=== PATIENT | female | born 1970 | race Caucasian/White ===

== ENCOUNTER 2020-04-04 00:31 | Outpatient (CLI) | payer BC, SELFPAY ==
[2020-04-04 20:45] LABS: SARS-CoV-2 RNA PCR Negative
== END 2020-04-04 00:32 | disposition home or self-care (01) ==
LOC: ANHCOVIDDT 00:31
PROVIDERS: PCP Family Medicine; Visit Provider Specialist
DX: Z01.812 Encounter for preprocedural laboratory examination (principal); Z11.59 Encounter for screening for other viral diseases
CPT/HCPCS: 87635; C9803; U0003

== ENCOUNTER 2020-04-07 05:24 | Day surgery (SDC) | payer BC, SELFPAY ==
[2020-04-06 15:39] VITALS: BMI 36.6
[2020-04-07] VITALS (8 sets, daily range): BP systolic 100–122; BP diastolic 47–83; PULSE 52–66; RESP 16–25; TEMP 35.8–36.3; O2SAT 95–98; BMI 38.9
[2020-04-07 11:40] LABS: Basophils Percent Auto 0.5 % (0.2-1.2); Eosinophils Absolute Auto 0.2 K/mm3 (0-0.3); Eosinophils Percent Auto 2.4 % (0-4.4); Hematocrit 42.9 % (37.0-47.0); Hemoglobin 14.1 g/dL (12.0-15.0); Immature Granulocyte Absolute 0.02 K/mm3 (0.00-0.031); Immature Granulocyte Percent A 0.2 % (0-0.5); Lymphocytes Absolute Auto 1.95 K/mm3 (0.9-3.2); Mean Corpuscular HGB Conc 32.9 g/dl (32-36); Mean Corpuscular Hemoglobin 31.7 pg (26-34); Mean Corpuscular Volume 96.4 fl (80-100); Mean Platelet Volume 9.8 fl (7.4-10.4); Monocytes Absolute Auto 0.6 K/mm3 (0.1-0.6); Monocytes Percent Auto 6.6 % (2.6-8.5); Neutrophils Absolute Auto 5.7 K/mm3 (1.3-6.7); Neutrophils Percent Auto 67.3 % (45.5-73.1); Platelet Count Result 240 k/mm3 (150-375); Red Blood Count 4.45 M/mm3 (4.2-5.4); White Blood Count 8.5 K/mm3 (4.5-10.0)
[2020-04-07 11:51] LABS: Anion Gap 5 mmol/L (8-16); Blood Urea Nitrogen 10 mg/dL (7-17); Calcium 9.3 mg/dL (8.4-10.2); Carbon Dioxide 31 mmol/L (22-30); Chloride 104 mmol/L (98-107); Estimated CRCL calculation 88 ml/min; Estimated Glomerular Filt Rate > 60; Glucose 92 mg/dL (65-105); INR 0.8; Prothrombin Time 12.1 Seconds (11.1-14.7); Sodium 140 mmol/L (137-145)
--- NOTE | 2020-04-07 13:04 | PM.IMHP ---
H&P: HPI History of Present Illness Date/Time: 04/07/20 13:04 Chief complaint: chest pain Narrative: Irina Layton is a 49 year old female 49 years old white woman, with history of smoking, history of dyslipidemia was seen because of recurrent episode of chest pain. She underwent stress test, showed inferior ischemia, with chest pain during stress test, she will be admitted to the hospital for elective cardiac catheterization for definitive diagnosis of coronary disease PMFSH Social History Social History Smoking packs per day: 1 Smoking cigarettes per day: 20.0 Years smoked: 30 Smoking pack-years: 30.00 Smoking status: Current every day smoker Tobacco type: cigarettes Substance use type: marijuana Last use: daily Living arrangements: with family Additional living arrangements comments: lives w boyfriend and daughter Spiritual care concerns: No Meds Home Medications and Allergies Home Medications Medication Instructions Recorded Confirmed Type Dialyvite Vitamin D 50,000 unit PO WEEKLY 04/06/20 04/06/20 History acetaminophen [Tylenol] 325 mg PO ONCE PRN 04/06/20 04/06/20 History albuterol 90 mcg INHALATION PRN 04/06/20 04/06/20 History alprazolam [Xanax] 1 mg PO QID MDD 4 04/06/20 04/06/20 History aspirin 325 mg PO DAILY 04/06/20 04/06/20 History atorvastatin 20 mg PO DAILY 04/06/20 04/06/20 History ibuprofen 800 mg PO TID PRN 04/06/20 04/06/20 History lisinopril-hydrochlorothiazide 1 tablet PO DAILY 04/06/20 04/06/20 History tusrficmwm-mshwjedmqfoza-cijr 1 tablet PO Q4H PRN 04/07/20 04/07/20 History [Fioricet] Allergies Allergy/AdvReac Type Severity Reaction Status Date / Time neomycin Allergy Unknown Hives Verified 04/07/20 12:07 Penicillins Allergy Unknown Itching Verified 04/07/20 12:07 vancomycin Allergy Unknown Hives Verified 04/07/20 12:07 Vital Signs Vital Signs - 24 hr 04/07/20 12:12 Temperature 36.3 C L Pulse Rate 62 Respiratory Rate 16 Blood Pressure 120/70 Pulse Oximetry 96 Exam Narrative: Exam Narrative: Awake alert oriented x3 not in acute distress, morbidly obese lady Neck is supple no obvious JVD, no carotid bruit Chest: Good air entry bilaterally, lungs are clear to auscultation and percussion bilaterally Cardiovascular: Regular rate and rhythm, 2/6 systolic murmur noted left sternal border Abdomen: Soft nontender bowel sounds positive Extremities: No edema has good pulses distally bilaterally H&P: Results Labs Labs: Short CBC 04/07/20 Range/Units 11:32 WBC 8.5 (4.5-10.0) K/mm3 Hgb 14.1 (12.0-15.0) g/dL Hct 42.9 (37.0-47.0) % Plt Count 240 (150-375) k/mm3 BMP 04/07/20 11:32 Sodium 140 Potassium 4.0 Chloride 104 Carbon Dioxide 31 H BUN 10 Creatinine 0.70 Glucose 92 Calcium 9.3 Assessment and Plan Assessment and plan (1) Atypical chest pain: Code(s): R07.89 - Other chest pain Status: Acute Assessment and Plan: will plan cardiac catheterization. The procedure was discussed with the patient, risks, benefits, and alternative diagnostic measure was explained, patient agreed to the procedure (2) Abnormal stress electrocardiogram test: Code(s): R94.39 - Abnormal result of other cardiovascular function study Status: Acute Assessment and Plan: will plan cardiac catheterization. The procedure was discussed with the patient, risks, benefits, and alternative diagnostic measure was explained, patient agreed to the procedure
--- NOTE | 2020-04-07 13:05 | WPDMODSED ---
Moderate Sedation Note-Pt Data Patient Data Allergies Allergy/AdvReac Type Severity Reaction Status Date / Time neomycin Allergy Unknown Hives Verified 04/07/20 12:07 Penicillins Allergy Unknown Itching Verified 04/07/20 12:07 vancomycin Allergy Unknown Hives Verified 04/07/20 12:07 Home Medications Medication Instructions Recorded Confirmed Type Dialyvite Vitamin D 50,000 unit PO WEEKLY 04/06/20 04/06/20 History acetaminophen [Tylenol] 325 mg PO ONCE PRN 04/06/20 04/06/20 History albuterol 90 mcg INHALATION PRN 04/06/20 04/06/20 History alprazolam [Xanax] 1 mg PO QID MDD 4 04/06/20 04/06/20 History aspirin 325 mg PO DAILY 04/06/20 04/06/20 History atorvastatin 20 mg PO DAILY 04/06/20 04/06/20 History ibuprofen 800 mg PO TID PRN 04/06/20 04/06/20 History lisinopril-hydrochlorothiazide 1 tablet PO DAILY 04/06/20 04/06/20 History mgxoigalcn-cymiothkwszsx-whch 1 tablet PO Q4H PRN 04/07/20 04/07/20 History [Fioricet] Current Medications: Active Medications Sodium Chloride (Normal Saline Iv) 500 mls @ 100 mls/hr IV CONT .Q5H ENOZ Sedation/Anesthesia: No previous sedation/anesthesia problems (including family history). PMFSH Social History Social History Smoking packs per day: 1 Smoking cigarettes per day: 20.0 Years smoked: 30 Smoking pack-years: 30.00 Smoking status: Current every day smoker Tobacco type: cigarettes Substance use type: marijuana Last use: daily Living arrangements: with family Additional living arrangements comments: lives w boyfriend and daughter Spiritual care concerns: No Mod Sed Physical Exam Physical Exam Pre Procedural Exam: Normal: Appearance, Eyes, Ears, Nose, Neck, Throat, Airway, Lungs, Heart Size, Heart Rate, Heart Rhythm, Neuro Exam, Abdomen, Liver, Kidneys, Spleen, Breasts, Genitalia, Extremities and Skin Hours since solid foods: 8 Hours since liquid intake: 8 Internal Medicine - PN: Obj Da Vital Signs Vital Signs: Vital Signs - 24 hr 04/07/20 12:12 Temperature 36.3 C L Pulse Rate 62 Respiratory Rate 16 Blood Pressure 120/70 Pulse Oximetry 96 Meds/Results Medications: Active Medications Generic Name Dose Route Start Last Admin Trade Name Gabriel PRN Reason Stop Dose Admin Sodium Chloride 500 mls @ 100 mls/hr 04/07/20 09:10 Normal Saline Iv IV CONT .Q5H ENZO Labs CBC & Chem 7: 04/07/20 11:32 04/07/20 11:32 Labs: Laboratory Results - last 24 hr 04/07/20 04/07/20 04/07/20 11:32 11:32 11:32 WBC 8.5 RBC 4.45 Hgb 14.1 Hct 42.9 MCV 96.4 MCH 31.7 MCHC 32.9 RDW 13.0 Plt Count 240 MPV 9.8 Immature Gran % (Auto) 0.2 Neut % (Auto) 67.3 Lymph % (Auto) 23.0 Wood % (Auto) 6.6 Eos % (Auto) 2.4 Baso % (Auto) 0.5 Lymph # (Auto) 1.95 Wood # (Auto) 0.6 Eos # (Auto) 0.2 Baso # (Auto) 0.0 Abs Immat Gran (auto) 0.02 Absolute Neuts (auto) 5.7 Absolute Nucleated RBC 0.0 Nucleated RBC % 0.0 PT 12.1 INR 0.8 Sodium 140 Potassium 4.0 Chloride 104 Carbon Dioxide 31 H Anion Gap 5 L BUN 10 Creatinine 0.70 Estim Creat Clear Calc 88 Estimated GFR > 60 Glucose 92 Calcium 9.3 ASA Classification/Sedation ASA Classification/Sedation ASA Class: II Risks: Risks, benefits and alternatives explained and patient/family accepted plan for sedation. Patient re-evaluated immediately prior to sedation.
--- NOTE | 2020-04-07 13:22 | WPDCARDPROC ---
Cardiac Cath Procedure Note Date of procedure:: 04/07/20 Performing physician:: Chacorta Bacon MD Procedure: 1. Left heart catheterization, selective coronary angiogram. 2. Left ventricular angiogram. 3. Conscious sedation. 4. Angio-Seal device for arterial hemostasis Clip And Hanger Attacher: Dr. Chacorta Bacon Complications: None. Sedation: Conscious sedation, local anesthesia, using 1 mg of Versed said, 75 mcg of fentanyl, and using 1% lidocaine for local anesthesia. starting time is 1:10 p.m. ending time is 1:22 p.m. History: 49 years old lady with history of smoking, history of dyslipidemia seen because of recurring chest pain had a stress test showed inferior ischemia brought to the electrical laboratory technician for elective cardiac catheterization for definitive diagnosis of coronary disease Technique: After informed consent was obtained from patient, was brought to the electrical laboratory technician, put in the electrical laboratory technician table, prepped and draped in usual sterile fashion. Five Moldovan sheath was inserted into the right common femoral artery, through the sheath 5 Moldovan JL4 catheter inserted, advanced to the left coronary artery, left coronary artery angiogram was obtained. The catheter was exchanged over guidewire into a 5 Moldovan JR4 catheter, advanced to the right coronary artery, right coronary artery angiogram was obtained. The catheter then was exchanged over guidewire into this 5 Moldovan pigtail catheter, advanced to left ventricle, left ventricular angiogram was obtained. The catheter then was pulled, the sheath was pulled applying manual Angio-Seal device for arterial hemostasis. Patient tolerated the procedure no complication, taken from the electrical laboratory technician to his room in stable condition stable vital signs. Hemodynamics: aortic pressure 114/60 . LV pressure 114/04 with LVEDP of 16 mmHg Angiographic findings: Left main: Medium size artery no significant disease or stenosis. Lad medium size artery showed mid LAD minimum irregularity with no obstructive lesions noted Left circumflex artery, medium size artery, no significant disease or stenosis. RCA: Dominant vessel, showed mid RCA significant irregularity with a 40-50% disease. LV: Normal size left ventricle with normal left ventricular systolic function. Summary: Mild coronary artery disease, normal left ventricular systolic function. Recommendation: Maximum medical treatment. Risk factor modification
[2020-04-07] MEDS: ALPRAZolam (*CRX) 0.5 MG TABLET 1 MG PO (14:00)
--- NOTE | 2020-04-07 14:18 | SUR.PHASEII ---
In PACU post procedure, pt became very anxious and hyperventilating. Complaining of pain to RFA as well. Pt did not take her Xanax prior to coming at the hospital. Usually takes 1mg QID. called and pt given dose of po Xanax. Pt feeling much better at this time. Talkative and calm, no pain at this time.
--- NOTE | 2020-04-07 14:45 | SUR.PHASEII ---
monitored q 15 min x 5, assessing RFA drsg site and DP pulses. Site remained clean dry and intact. pulses remained strong and palpable. VSS throughout. pt more calm after receiving Xanax. Still c/o intermittent pain to RFA.
--- NOTE | 2020-04-07 15:50 | SUR.PHASEII ---
Patient up to chair after 2 hours of bedrest. Patient denies pain. Site soft and nontender, no evidence of bleeding or hematoma. Will continue to monitor patient closely.
--- NOTE | 2020-04-07 16:51 | SUR.PHASEII ---
Patient able to ambulate freely and independently to bathroom without staff assistance prior to discharge. Educational materials on moderate sedation, angioseal, and left heart cath provided. VSS stable at discharge. Site soft and nontender, no evidence of bleeding or hematoma. Distal pulse palpable. Patient updated on plan of care and verbalizes understanding. All questions answered. Patient educated to contact office if further issues arise after discharge.
== END 2020-04-07 17:14 | disposition home or self-care (01) ==
PROVIDERS: PCP Family Medicine; Visit Provider Specialist
PROC: 4A023N7 Measurement of Cardiac Sampling and Pressure, Left Heart, Percutaneous Approach (ICD-10-PCS; CPT 93452; principal; 2020-04-07 12:30)
DX: I25.10 Atherosclerotic heart disease of native coronary artery without angina pectoris (principal); R94.39 Abnormal result of other cardiovascular function study; R07.89 Other chest pain; E78.5 Hyperlipidemia, unspecified; F17.210 Nicotine dependence, cigarettes, uncomplicated
CPT/HCPCS: 36415; 80048; 85025; 85610; 93458; A9270; C1760; C1887; C1894; G0269; J1644; J2250; J3010; J7040

== ENCOUNTER 2024-12-24 17:06 | Emergency (ER) | payer OTHER, SELFPAY ==
--- OUTSIDE RECORDS SUMMARY | 2024-12-24 17:09 | XMS_ITS | Encounter Summary ---
Author Organization [facility] Address [address] [place] [address] Phone Care Team Providers Care Superintendent Laundry Name Role Phone Negro Huerta APRN, SQL SSRS SSIS DEVELOPER Primary Care Pr ovider Denae Gonzalez DPM Unavailable [phone] Cherie Vizcarra REGRINDER OPERATOR Unavailable Unavailab Amado Singer ENROLLMENT MANAGEMENT COORDINATOR, SQL SSRS SSIS DEVELOPER Unavailable [phone] Nohelia Haskins MD Unavailable [phone] Aga Garay APRN, SQL SSRS SSIS DEVELOPER Unavailable + [phone] Leandro Jacques MD Unavailable Reason for Visit * Reason Comments Medication Refill Encounter Details Date Type Department Care Team (Late st Contact Info) Description 04/10/2022 Refill [facility] - [facility] - [place] [address] [place] [address] Negro Huerta APRN, SQL SSRS SSIS DEVELOPER #[address] [address] Medication Refill Social History Tobacco Use Types Packs/Day Years Used Date Smoking Tobacco: Every Day Cigarettes Smokeless Tobacco: Never Alcohol Use Standard Drinks/Week Comments Not Currently 0 (1 standard drink = 0.6 oz pur e alcohol) PHQ-2 Answer Date Recorded Total Score - Questions 1-9 0 030 07/2021 Comments No Sex and Gender Information Value Date Recorded Sex Assigned at Female 11/15/2023 3:17 PM CDT Legal Sex Female 2:07 PM MAINTENANCE SHOP LABORER Gender Identity Female 11/15/2023 3:17 PM CDT Sexual Orientation Straight 11/15/2023 3: 17 PM CDT COVID-19 Exposure Response Date Recorded In the last 10 days, have yo u been in contact with someone who was confirmed or suspected to have Coronavirus/COVID-19? No / Unsure 04/13/2022 2:51 PM MAINTENANCE SHOP LABORER documented as of this encounter Miscellaneous Notes * Telephone Encounter - Ira Thompson RN - 04/10/2022 10:29 AM CST PDMP 03/10/22 Medication failed the protocol, provider to review and approve the medication order if appropriate. Requested Prescriptions Pending Prescriptions Disp Refills ALPRAZolam (XANAX) 1 MG Tablet [Pharmacy Med Name: ALPRAZOLAM 1MG TABLET] 90 Tablet 0 Sig: TAKE ONE (1) TABLET BY MOUTH THREE (3) TIMES DAILY NEEDED FOR ANXIETY Not Delegated - Benzodiazepines Protocol Failed - 04/10/2022 10:06 AM Failed - This refill cannot be delegated Passed - Visit with relevant provider in past 12 months or upcoming 90 days Recent Visits Date Type Provider Dept 02/26/22 Office Visit Negro Huerta APRN, CNP [facility] 11/13/21 Office Visit Negro Huerta APRN, CNP [facility] 08/28/21 Office Visit eNgro Huerta APRN, CNP [facility] 08/04/21 Office Visit Negro Huerta APRN, CNP [facility] 07/06/21 Office Visit Negro Huerta APRN, [facility] Showing recent visits within past 365 days and meeting all other requirements Future Appointments Date Type Provider Dept 05/31/22 Appointment Negro Huerta APRN, [facility] Showing future appointments within next 90 days and meeting all other requirements TENANCE SHOP LABORER documented in this encounter Plan of Treatment Upcoming Encounters Date Type Department Care Team (Late st Contact Info) Description 03/23/2025 1:30 PM MAINTENANCE SHOP LABORER Office Visit [facility] - [facility] [place] [address]2 [facility] [place] [address] Negro Huerta APRN, SQL SSRS SSIS DEVELOPER #[address] [place] [address] 04/16/2025 1:00 PM MAINTENANCE SHOP LABORER Office Visit [facility] - Cardiology - [place] #2 [facility] [address] Aga Garay APRN, SQL SSRS SSIS DEVELOPER [address] [address] 07/20/2025 1:00 PM CDT Office Visit [facility] #2 [facility] [phone] Amado Early APRN, SQL SSRS SSIS DEVELOPER [address] [place] [address] documented as of this encounter Visit Diagnoses Diagnosis Anxiety Anxiety state, unspecified documented in this encounter Additional Health Concerns Assessment Noted Time PHQ-9 Depression Total Score: 0 07/07/19 10:00 AM MAINTENANCE SHOP LABORER documented as of this encounter Care Teams Superintendent Laundry Relationship Specialty Start Date End Date Negro Huerta APRN, SQL SSRS SSIS DEVELOPER #[address] [place] [address] PCP - General Advanced Practice Nurse 07/06/21 Denae Gonzalez DPM #[address] [place] [address] Consulting Physician Podiatry 04/24/22 Cherie Vizcarra, [place] Calciner Feeder Director Medical 06/03/23 06/12/23 Amado Early APRN, SQL SSRS SSIS DEVELOPER #2 [place] [address] Nurse Practitioner Advanced Practice Nurse 09/02/23 Nohelia Haskins MD #2 [facility] [address] [place] [address] Consulting Physician Urology 10/11/23 Aga Garay APRN, SQL SSRS SSIS DEVELOPER 2 [facility] [address] [place] [address] Nurse Practitioner Cardiology 12/14/24 Leandro Jacques MD #2 [facility] [address] [place] [address] Consulting Physician Colon and Rectal Surgery 12/15/24 documented as of this encounter
--- OUTSIDE RECORDS SUMMARY | 2024-12-24 17:09 | XMS_ITS | Encounter Summary ---
Author Organization [facility] Address [address] [place] [address] Phone Care Team Providers Care Ordnance Officer Name Role Phone Negro Huerta APRN, RESIDENTIAL SUPPORT SPECIALIST Primary Care Pr ovider Denae Gonzalez DPM Unavailable [phone] Amado Early BODY TECHNICIAN, RESIDENTIAL SUPPORT SPECIALIST Unavailable Nohelia Haskins MD Unavailable [phone] Aga Garay APRN, RESIDENTIAL SUPPORT SPECIALIST Unavailable + [phone] Leandro Jacques MD Unavailable Reason for Visit * Reason Comments Medication Refill Encounter Details Date Type Department Care Team (Late st Contact Info) Description 07/08/2023 Refill [facility] - [facility] Medicine - [place] [address] [place] [address] Negro Huerta APRN, RESIDENTIAL SUPPORT SPECIALIST #[address] [address] Medication Refill Social History Tobacco Use Types Packs/Day Years Used Date Smoking Tobacco: Every Day Cigarettes Smokeless Tobacco: Never Alcohol Use Standard Drinks/Week Comments Not Currently 0 (1 standard drink = 0.6 oz pur e alcohol) [facility] Utilities Answer Date Recorded In the past 12 months has e electric, gas, oil, or water company threatened to shut off services in your home? No 06/12/2023 Social Connection and Isolation Panel Answer Date Recorded In a typical week, how many times do you talk on the phone with family, friends, or neighbors? More than three times a week 06/12/2023 How often do you get togethe r with friends or relatives? More than three times a week 06/12/2023 How often do you attend chur ch or muslim services? Never 06/12/2023 Do you belong to any clubs o r organizations such as sikhism groups, unions, fraternal or athletic groups, or school groups? No 06/12/2023 How often do you attend meet ings of the clubs or organizations you belong to? Never 06/12/2023 Are you , , di vorced, , never , or living with a partner? 06/12/2023 AUDIT-C Answer Date Recorded Q1: How often do you have a drink containing alcohol? Never 06/12/2023 Q2: How many drinks containi ng alcohol do you have on a typical day when you are drinking? Patient does not drink Q3: How often do you have si x or more drinks on one occasion? Never 06/12/2023 Overall Financial Resource Strain (CARDIA) Answe r Date Recorded How hard is it for you to pa y for the very basics like food, housing, medical care, and heating? Not hard at all 06/12/2023 PHQ-2 Answer Date Recorded Total Score - Questions 1-9 9 11/2023 [facility] - Occupational Stress Questionnaire Answer Date Recorded Do you feel stress - tense, restless, nervous, or anxious, or unable to sleep at night because your mind is troubled all the time - these days? To some extent 06/12/2023 Exercise Vital Sign Answer Date Recorde d On average, how many days pe r week do you engage in moderate to strenuous exercise (like a brisk walk)? 0 days 06/12/2023 On average, how many minutes do you engage in exercise at this level? 0 min 06/12/2023 Hunger Vital Sign Answer Date Recorded Within the past 12 months, y ou worried that your food would run out before you got the money to buy more. Never true 06/12/19 24 Within the past 12 months, t he food you bought just didn't last and you didn't have money to get more. Never true 06/12/2023 PRAPARE - Transportation Answer Date Re corded In the past 12 months, has l ack of transportation kept you from medical appointments or from getting medications? No 11/2023 In the past 12 months, has l ack of transportation kept you from meetings, work, or from getting things needed for daily living? No 06/12/2023 Housing Stability Vital Sign Answer Juan e Recorded In the last 12 months, was t here a time when you were not able to pay the mortgage or rent on time? No 06/12/2023 In the last 12 months, how many places have you lived? 1 06/12/2023 In the last 12 months, was t here a time when you did not have a steady place to sleep or slept in a assisted (including now)? No 06/12/2023 Education Answer Date Recorded What is the highest level of school you have completed or the highest degree you have received? Associate degree: occupational, technical, or vocational program 09/21/2022 Comments No Sex and Gender Information Value Date Recorded Sex Assigned at Female 11/15/2023 3:17 PM CDT Legal Sex Female 2:07 PM STOVE MECHANIC Gender Identity Female 11/15/2023 3:17 PM CDT Sexual Orientation Straight 11/15/2023 3: 17 PM CDT documented as of this encounter Miscellaneous Notes * Telephone Encounter - Ira Thompson RN - 07/09/2023 10:02 AM CST Medication failed the protocol, provider to review and approve the medication order if appropriate. Requested Prescriptions Pending Prescriptions Disp Refills amitriptyline (ELAVIL) 75 MG Tablet [Pharmacy Med Name: AMITRIPTYLINE HYDROCHLORIDE 75MG TABLET] 90Tablet 3 Sig: Take 1 Tablet by mouth nightly. Not Delegated - Tricyclic Agents Protocol Failed - 07/08/2023 12:24 PM Failed - This refill cannot be delegated Passed - Visit with relevant provider in past 12 months or upcoming 90 days Recent Visits Date Type Provider Dept 05/31/23 Office Visit Negro Huerta APRN, [facility] [place] [place] [facility] 04/04/23 Office Visit Leti Byrnse APRN, CNP [facility] 03/27/23 Office Visit Negro Huerta APRN, [facility] 01/29/23 Office Visit Negro Huerta APRN, [facility] 09/28/22 [facility] Show[facility] recent visits within past 365 days and meeting all other requirements Future Appointments No visits were found meeting these conditions. Showing future appointments within next 90 days and meeting all other requirements E MECHANIC documented in this encounter Plan of Treatment Upcoming Encounters Date Type Department Care Team (Late st Contact Info) Description 03/23/2025 1:30 PM STOVE MECHANIC Office [facility] - [place] [address] [place] [phone] Negro Huerta APRN, RESIDENTIAL SUPPORT SPECIALIST #[address] [address] 04/16/2025 1:00 PM STOVE MECHANIC Office Visit [facility] - Cardiology - [place] [address] [place] [phone] Aga Garay APRN, RESIDENTIAL SUPPORT SPECIALIST 2 [facility] [address] [place] [address] 07/20/2025 1:00 PM CDT Office Visit [facility] UROLOG[facility] #[address] [place] [phone] Amado Early APRN, RESIDENTIAL SUPPORT SPECIALIST #[address] [place] [address] documented as of this encounter Visit Diagnoses Not on filedocumented in this encounter Additional Health Concerns Assessment Noted Time PHQ-9 Depression Total Score: 9 06/12/19 24 3:31 PM STOVE MECHANIC documented as of this encounter Care Teams Ordnance Officer Relationship Specialty Start Date End Date Negro Huerta APRN, RESIDENTIAL SUPPORT SPECIALIST #2 [facility] [address] [place] [address] PCP - General Advanced Practice Nurse 07/06/21 Denae Gonzalez DPM #2 [facility] [address] [place] [address] Consulting Physician Podiatry 04/24/22 Amado Early APRN, RESIDENTIAL SUPPORT SPECIALIST #2 [place] [address] Nurse Practitioner Advanced Practice Nurse 09/02/23 Nohelia Haskins MD #2 [facility] [address] [place] [address] Consulting Physician Urology 10/11/23 Aga Garay APRN, RESIDENTIAL SUPPORT SPECIALIST 2 [facility] [address] [place] [address] Nurse Practitioner Cardiology 12/14/24 Leandro Jacques MD #2 [facility] [address] [place] [address] Consulting Physician Colon and Rectal Surgery 12/15/24 documented as of this encounter
--- OUTSIDE RECORDS SUMMARY | 2024-12-24 17:09 | XMS_ITS | Encounter Summary ---
Author Organization [facility] Address [address] [place] [address] Phone Care Team Providers Care Surgery Consultant Name Role Phone Negro Huerta APRN, BENEFITS SALES CONSULTANT Primary Care Pr ovider Denae Gonzalez DPM Unavailable [phone] Amado Early INSULATION BATTING MACHINE OPERATOR, BENEFITS SALES CONSULTANT Unavailable Nohelia Haskins MD Unavailable [phone] Aga Garay APRN, BENEFITS SALES CONSULTANT Unavailable + [phone] Leandro Jacques MD Unavailable Reason for Visit * Reason Comments Medication Refill Encounter Details Date Type Department Care Team (Late st Contact Info) Description 03/09/2024 [facility]ill [facility] - Family Medicine - [place] #2 [place] [address] Negro Huerta APRN, BENEFITS SALES CONSULTANT #[address] [address] Medication Refill Social History Tobacco Use Types Packs/Day Years Used Date Smoking Tobacco: Every Day Cigarettes Smokeless Tobacco: Never Alcohol Use Standard Drinks/Week Comments Not Currently 0 (1 standard drink = 0.6 oz pur e alcohol) [facility] Utilities Answer Date Recorded In the past [...] often do you attend chur ch or jehovah's witness services? Never 06/12/2023 Do you belong to any clubs o r organizations such as jainism groups, unions, fraternal or athletic groups, or [...] Total Score - Questions 1-9 9 11/2023 [facility] - Occupational [...] place to sleep or slept in a intermediate (including now)? No 06/12/2023 Education Answer Date Recorded What is the highest level of school you have completed or the highest degree you have received? Associate degree: occupational, technical, or vocational program 09/21/2022 Comments No Sex and Gender Information Value Date Recorded Sex Assigned at Female 11/15/2023 3:17 PM CDT Legal Sex Female 2:07 PM CATERING ASSOCIATE Gender Identity Female 11/15/2023 3:17 PM CDT Sexual Orientation Straight 11/15/2023 3: 17 PM CDT documented as of this encounter Miscellaneous Notes * Telephone Encounter - Ira Thompson RN - 03/10/2024 8:50 AM CST Images from the original note were not included. DULoxetine HCl Dispensed Days Supply Quantity Provider Pharmacy DULOXETINE HCL DR 20 MG CAP 02/27/2024 30 60 Negro Huerta APRN, BENEFITS SALES CONSULTANT [facility] 20 MG CAP 01/30/2024 30 60 Negro Huerta APRN, BENEFITS SALES CONSULTANT [facility] 20 MG CAP 01/04/2024 30 60 Negro Huerta APRN, HOMAR [id number] ... DULOXETINE HCL DR 20 MG CAP 12/09/2023 30 60 Negro Huerta APRN, CNP [id number] ... RING ASSOCIATE documented in this encounter Plan of Treatment Upcoming Encounters Date Type Department Care Team (Late st Contact Info) Description 03/23/2025 1:30 PM CATERING ASSOCIATE Office Visit [facility] Medical [facility] - Family Medicine [facility] #2 [place] [address] Negro Huerta APRN, HOMAR #2 [facility] [address] [place] [address] 04/16/2025 1:00 PM CATERING ASSOCIATE Office Visit [facility] Cardiology [facility] #2 [place] [address] Aga Garay APRN, BENEFITS SALES CONSULTANT 2 [facility] [address] [place] [address] 07/20/2025 1:00 PM CDT Office Visit [facility] #2 [place] [phone] Amado Early APRN, BENEFITS SALES CONSULTANT #2 [place] [address] documented as of this encounter Visit Diagnoses Diagnosis Bipolar disorder with depression (HCC) Bipolar I disorder, most recent episode (or current) depressed, unspecified documented in this encounter Additional Health Concerns Assessment Noted Time PHQ-9 Depression Total Score: 9 06/12/19 24 3:31 PM CATERING ASSOCIATE documented as of this encounter Care Teams Surgery Consultant Relationship Specialty Start Date End Date Negro Huerta APRN, HOMAR #2 [facility] [address] [place] [address] PCP - General Advanced Practice Nurse 07/06/21 Denae Gonzalez DPM #2 [facility] [address] [place] [address] Consulting Physician Podiatry 04/24/22 Amado Early INSULATION BATTING MACHINE OPERATOR, BENEFITS SALES CONSULTANT #2 [place] [address] Nurse Practitioner Advanced Practice Nurse 09/02/23 Nohelia Haskins MD #2 [facility] [address] [place] [address] Consulting Physician Urology 10/11/23 Aga Garay APRN, BENEFITS SALES CONSULTANT 2 [facility] [address] [place] [address] Nurse Practitioner Cardiology 12/14/24 Leandro Jacques MD #2 [facility] [address] [place] [address] Consulting Physician Colon and Rectal Surgery 12/15/24 documented as of this encounter
--- OUTSIDE RECORDS SUMMARY | 2024-12-24 17:09 | XMS_ITS | Encounter Summary ---
Author Organization [facility] Address [address] [place] [address] Phone Care Team Providers Care Cardiographer Name Role Phone Negro Huerta APRN, KILN MECHANIC Primary Care Pr ovider Denae Gonzalez DPM Unavailable [phone] Amado Early MACHINE OR MACHINERY MECHANIC, KILN MECHANIC Unavailable [phone] Nohelia Haskins MD Unavailable [phone] Aga Garay APRN, KILN MECHANIC Unavailable + [phone] Leandro Jacques MD Unavailable Reason for Visit * Reason Comments Medication Refill Encounter Details Date Type Department Care Team (Late st Contact Info) Description 07/29/2023 Refill [facility] - Family Medicine - [place] #2 [place] [address] Negro Huerta APRN, KILN MECHANIC #[address] [address] Medication Refill Social History Tobacco Use Types Packs/Day Years Used Date Smoking Tobacco: Every Day Cigarettes Smokeless Tobacco: Never Alcohol Use Standard Drinks/Week Comments Not Currently 0 (1 standard drink = 0.6 oz pur e alcohol) [facility] Utilities Answer Date Recorded In the past [...] often do you attend chur ch or mandaen services? Never 06/12/2023 Do you belong to any clubs o r organizations such as buddhism groups, unions, fraternal or athletic groups, or [...] Total Score - Questions 1-9 9 11/2023 [facility] - Occupational Stress [...] place to sleep or slept in a care home (including now)? No 06/12/2023 Education Answer Date Recorded What is the highest level of school you have completed or the highest degree you have received? Associate degree: occupational, technical, or vocational program 09/21/2022 Comments No Sex and Gender Information Value Date Recorded Sex Assigned at Female 11/15/2023 3:17 PM CDT Legal Sex Female 2:07 PM COOK FRY Gender Identity Female 11/15/2023 3:17 PM CDT Sexual Orientation Straight 11/15/2023 3: 17 PM CDT documented as of this encounter Miscellaneous Notes * Telephone Encounter - Ira Thompson RN - 07/29/2023 5:08 PM CDT PDMP 07/02/23 Medication failed the protocol, provider to review and approve the medication order if appropriate. Requested Prescriptions Pending Prescriptions Disp Refills ALPRAZolam (XANAX) 1 MG Tablet [Pharmacy Med Name: ALPRAZOLAM 1MG TABLET] 90 Tablet 0 Sig: Take 1 Tablet by mouth 3 times daily as needed for Anxiety. Not Delegated - Benzodiazepines Protocol Failed - 07/29/2023 3:04 PM Failed - This refill cannot be delegated Passed - Visit with relevant provider in past 12 months or upcoming 90 days Recent Visits Date Type Provider Dept 05/31/23 Office Visit Negro Huerta APRN, HOMAR [facility] [place] 04/04/23 Office Visit Leti Byrnes APRN, HOMAR [facility] 03/27/23 Office Visit Negro Huerta APRN, HOMAR [facility] 01/29/23 Office Visit Negro Huerta APRN, HOMAR [facility] 09/28/22 Office Visit Negro Hu[facility] APRN, HOMAR [facility] Showing recent visits within past 365 days and meeting all other requirements Future Appointments No visits were found meeting these conditions. Showing future appointments within next 90 days and meeting all other requirements documented in this encounter Plan of Treatment Upcoming Encounters Date Type Department Care Team (Late st Contact Info) Description 03/23/2025 1:30 PM COOK FRY Office Visit [facility] - Family Medicine - [place] #2 [place] [address] Negro Huerta APRN, KILN MECHANIC #[address] [address] 04/16/2025 1:00 PM COOK FRY Office Visit [facility] - Cardiology - [place] #2 [place] [address] Aga Garay APRN, KILN MECHANIC [address] [address] 07/20/2025 1:00 PM CDT Office Visit [facility] UR[facility] #2 [place] [id number] Amado Early APRN, KILN MECHANIC #2 [place] [address] documented as of this encounter Visit Diagnoses Diagnosis Anxiety Anxiety state, unspecified documented in this encounter Additional Health Concerns Assessment Noted Time PHQ-9 Depression Total Score: 9 06/12/19 24 3:31 PM COOK FRY documented as of this encounter Care Teams Cardiographer Relationship Specialty Start Date End Date Negro Huerta, MACHINE OR MACHINERY MECHANIC, KILN MECHANIC #2 [facility] [address] [place] [address] PCP - General Advanced Practice Nurse 07/06/21 Denae Gonzalez DPM #2 [facility] [address] [place] [address] Consulting Physician Podiatry 04/24/22 Amado Early APRN, KILN MECHANIC #2 [place] [address] Nurse Practitioner Advanced Practice Nurse 09/02/23 Nohelia Haskins MD #2 [facility] [address] [place] [address] Consulting Physician Urology 10/11/23 Aga Garay APRN, KILN MECHANIC 2 [facility] [address] [place] [address] Nurse Practitioner Cardiology 12/14/24 Leandro Jacques MD #2 [facility] [address] [place] [address] Consulting Physician Colon and Rectal Surgery 12/15/24 documented as of this encounter
--- OUTSIDE RECORDS SUMMARY | 2024-12-24 17:09 | XMS_ITS | Encounter Summary ---
Author Organization [facility] Address [address] [place] [address] Phone Care Team Providers Care Tube Filler Name Role Phone Negro Huerta APRN, EMPLOYER RELATIONS REPRESENTATIVE Primary Care Pr ovider Denae Gonzalez DPM Unavailable [phone] Cherie Vizcarra DELIVERY CONSULTANT Unavailable Unavailab Amado Singer TOWER SUPERVISOR, EMPLOYER RELATIONS REPRESENTATIVE Unavailable [phone] Nohelia Haskins MD Unavailable [phone] Aga Garay APRN, EMPLOYER RELATIONS REPRESENTATIVE Unavailable + [phone] Leandro Jacques MD Unavailable Reason for Visit * Reason Comments Medication Refill Encounter Details Date Type Department Care Team (Late st Contact Info) Description 02/27/2023 Refill [facility] - Family Medicine - [place] #2 [place] [address] Negro Huerta APRN, EMPLOYER RELATIONS REPRESENTATIVE #[address] [address] Medication Refill Social History Tobacco Use Types Packs/Day Years Used Date Smoking Tobacco: Every Day Cigarettes Smokeless Tobacco: Never Alcohol Use Standard Drinks/Week Comments Not Currently 0 (1 standard drink = 0.6 oz pur e alcohol) PHQ-2 Answer Date Recorded Total Score - Questions 1-9 0 03/0 07/2021 Education Answer Date Recorded What is the highest level of school you have completed or the highest degree you have received? Associate degree: occupational, technical, or vocational program 09/21/2022 Comments No Sex and Gender Information Value Date Recorded Sex Assigned at Female 11/15/2023 3:17 PM CDT Legal Sex Female 2:07 PM LIME KILN OPERATOR Gender Identity Female 11/15/2023 3:17 PM CDT Sexual Orientation Straight 11/15/2023 3: 17 PM CDT COVID-19 Exposure Response Date Recorded In the last 10 days, have yo u been in contact with someone who was confirmed or suspected to have Coronavirus/COVID-19? No / Unsure 01/29/2023 1:24 PM CDT documented as of this encounter Miscellaneous Notes * Telephone Encounter - Ira Thompson RN - 02/27/2023 10:49 AM CDT PDMP 02/02/23, 01/05/23 Medication failed the protocol, provider to review and approve the medication order if appropriate. Requested Prescriptions Pending Prescriptions Disp Refills ALPRAZolam (XANAX) 1 MG Tablet [Pharmacy Med Name: ALPRAZOLAM 1MG TABLET] 90 Tablet 0 Sig: Take 1 Tablet by mouth 3 times daily as needed for Anxiety. Not Delegated - Benzodiazepines Protocol Failed - 02/27/2023 10:45 AM Failed - This refill cannot be delegated Passed - Visit with relevant provider in past 12 months or upcoming 90 days Recent Visits Date Type Provider Dept 01/29/23 Office Visit Negro Huerta APRN, HOMAR [facility] 09/28/22 Office Visit Negro Huerta APRN, HOMAR [facility] 06/29/22 Office Visit Leti Byrnes APRN, HOMAR [facility] 05/31/22 Office Visit Negro Huerta APRN, HOMAR [facility] Showing recent visits within past 365 days and meeting all other requirements Future Appointments No visits were found meeting these conditions. Showing future appointments within next 90 days and meeting all other requirements documented in this encounter Plan of Treatment Upcoming Encounters Date Type Department Care Team (Late st Contact Info) Description 03/23/2025 1:30 PM LIME KILN OPERATOR Office Visit [facility] - Family Medicine - [place] #2 [facility] [place] [address] Negro Huerta APRN, EMPLOYER RELATIONS REPRESENTATIVE #[address] [address] 04/16/2025 1:00 PM LIME KILN OPERATOR Office Visit [facility] Cardiology - [place] #2 [place] [address] Aga Garay APRN, EMPLOYER RELATIONS REPRESENTATIVE [address] [address] 07/20/2025 1:00 PM CDT Office Visit [facility] UR[facility]Y #2 [place] [address] Amado Early APRN, EMPLOYER RELATIONS REPRESENTATIVE #2 [place] [address] documented as of this encounter Visit Diagnoses Diagnosis Anxiety Anxiety state, unspecified documented in this encounter Additional Health Concerns Assessment Noted Time PHQ-9 Depression Total Score: 0 07/07/19 10:00 AM LIME KILN OPERATOR documented as of this encounter Care Teams Tube Filler Relationship Specialty Start Date End Date Negro Huerta APRN, EMPLOYER RELATIONS REPRESENTATIVE #[address] [address] PCP - General Advanced Practice Nurse 07/06/21 Denae Gonzalez DPM #[address] [place] [address] Consulting Physician Podiatry 04/24/22 Cherie Vizcarra, [place] Speech Language Pathologist Assistant Hay Farmer 06/03/23 06/12/23 Amado Early APRN, EMPLOYER RELATIONS REPRESENTATIVE #2 [place] [address] Nurse Practitioner Advanced Practice Nurse 09/02/23 Nohelia Haskins MD #2 [facility] [address] [place] [address] Consulting Physician Urology 10/11/23 Aga Garay APRN, EMPLOYER RELATIONS REPRESENTATIVE 2 [facility] [address] [place] [address] Nurse Practitioner Cardiology 12/14/24 Leandro Jaqcues MD #2 [facility] [address] [place] [address] Consulting Physician Colon and Rectal Surgery 12/15/24 documented as of this encounter
--- OUTSIDE RECORDS SUMMARY | 2024-12-24 17:09 | XMS_ITS | Encounter Summary ---
Author Organization [facility] Address [address] [place] [address] Phone Care Team Providers Care Contract Post Office Clerk Name Role Phone Negro Huerta APRN, FOOD AND BEVERAGE ATTENDANT Primary Care Pr ovider Denae Gonzalez DPM Unavailable [phone] Amado Early SUPERVISOR SPRING UP, FOOD AND BEVERAGE ATTENDANT Unavailable Nohelia Haskins MD Unavailable [phone] Aga Garay APRN, FOOD AND BEVERAGE ATTENDANT Unavailable + [phone] Leandro Jacques MD Unavailable Reason for Visit * Reason Comments Medication Refill Encounter Details Date Type Department Care Team (Late st Contact Info) Description 08/08/2023 Refill [facility] - Family Medicine - [place] #2 [place] [address] Negro Huerta APRN, FOOD AND BEVERAGE ATTENDANT #[address] [address] Medication Refill Social History Tobacco Use Types Packs/Day Years Used Date Smoking Tobacco: Every Day Cigarettes Smokeless Tobacco: Never Alcohol Use Standard Drinks/Week Comments Not Currently 0 (1 standard drink = 0.6 oz pur e alcohol) [facility] Utilities Answer Date Recorded In the past [...] often do you attend chur ch or catholic services? Never 06/12/2023 Do you belong to any clubs o r organizations such as rastafarian groups, unions, fraternal or athletic groups, or [...] Total Score - Questions 1-9 9 11/2023 [facility] Occupat ional Health - Occupational Stress [...] place to sleep or slept in a senior care (including now)? No 06/12/2023 Education Answer Date Recorded What is the highest level of school you have completed or the highest degree you have received? Associate degree: occupational, technical, or vocational program 09/21/2022 Comments No Sex and Gender Information Value Date Recorded Sex Assigned at Female 11/15/2023 3:17 PM CDT Legal Sex Female 2:07 PM MACHINE FEATHEREDGER AND REDUCER Gender Identity Female 11/15/2023 3:17 PM CDT Sexual Orientation Straight 11/15/2023 3: 17 PM CDT documented as of this encounter Miscellaneous Notes * Telephone Encounter - Ira Thompson RN - 08/08/2023 11:23 AM CDT Medication warning Per nursing clinical judgement, provider to review and approve the medication(s) order(s) if appropriate. Requested Prescriptions Pending Prescriptions Disp Refills DULoxetine (CYMBALTA) [address] Particles [Pharmacy Med Name: DULOXETINE HYDROCHLORIDE 20MG CAPSULE DR PART] 60 Capsule 5 Sig: TAKE 2 CAPSULES BY MOUTH NIGHTLY. SNRI (6 Month Refill Only) Protocol Passed - 08/08/2023 9:12 AM Passed - No test in the past 12 months or most recent test was negative Passed - No active on record Passed - Visit with relevant provider in past 6 months or upcoming 90 days Recent Visits Date Type Provider Dept 05/31/23 Office Visit Negro Huerta APRN, HOMAR [facility] 04/04/23 Office Visit Leti Byrnes APRN, CNP [facility] 03/27/23 Office Visit Negro Huerta APRN, HOMAR [facility] Showing recent visits within past 182 days and meeting all other requirements Future Appointments No visits were found meeting these conditions. Showing future appointments within next 90 days and meeting all other requirements Passed - Has an encounter in the past 6 months with a depression or anxiety visit diagnosis Passed - Patient has established therapy with Serotonin-Norepinephrine Reuptake Inhibitors for at least 6 months Refused Prescriptions Disp Refills OLANZapine (ZYPREXA) 10 MG Tablet [Pharmacy Med Name: OLANZAPINE 10MG TABLET] 30 Tablet 2 Sig: TAKE 1 TABLET BY MOUTH NIGHTLY. Not Delegated - Antipsychotic Protocol Failed - 08/08/2023 9:12 AM Failed - This refill cannot be delegated Failed - Active on medication list Passed - Visit with relevant provider in past 12 months or upcoming 90 days Recent Visits Date Type Provider Dept 05/31/23 Office Visit Negro Huerta APRN, CNP [facility] 04/04/23 Office Visit Leti Byrnes APRN, HOMAR [facility] 03/27/23 Office Visit Negro Huerta APRN, CNP [facility] 01/29/23 Office Visit Negro Huerta APRN, HOMAR [facility] 09/28/22 Office Visit Negro Huerta APRN, HOMAR [facility] Showing recent visits within past 365 days and meeting all other requirements Future Appointments No visits were found meeting these conditions. Showing future appointments within next 90 days and meeting all other requirements * Telephone Encounter - Ira Thompson RN - 08/08/2023 10:58 AM CDT Name from pharmacy: OLANZAPINE 10MG TABLET Will file in chart as: OLANZapine (ZYPREXA) 10 MG Tablet The original prescription was discontinued on 07/12/2023 by Negro Huerta APRN, HOMAR for thefollowing reason: Side effects. documented in this encounter Plan of Treatment Upcoming Encounters Date Type Department Care Team (Late st Contact Info) Description 03/23/2025 1:30 PM MACHINE FEATHEREDGER AND REDUCER Office Visit [facility] - Family Medicine [facility] #2 [facility] [place] [address] Negro Huerta APRN, HOMAR #2 [facility] [address] [place] [address] 04/16/2025 1:00 PM MACHINE FEATHEREDGER AND REDUCER Office Visit [facility] - Cardiology - [place] #2 [place] [address] Aga Garay APRN, HOMAR 2 [facility] [address] [place] [address] 07/20/2025 1:00 PM CDT Office Visit [facility]Y #2 [place] [address] Amado Early APRN, FOOD AND BEVERAGE ATTENDANT #2 [place] [address] documented as of this encounter Visit Diagnoses Diagnosis Bipolar disorder with depression (HCC) Bipolar I disorder, most recent episode (or current) depressed, unspecified documented in this encounter Additional Health Concerns Assessment Noted Time PHQ-9 Depression Total Score: 9 06/12/19 24 3:31 PM MACHINE FEATHEREDGER AND REDUCER documented as of this encounter Care Teams Contract Post Office Clerk Relationship Specialty Start Date End Date Negro Huerta APRN, HOMAR #2 [facility] [address] [place] [address] PCP - General Advanced Practice Nurse 07/06/21 Denae Gonzalez DPM #2 [facility] [address] [place] [address] Consulting Physician Podiatry 04/24/22 Amado Early APRN, FOOD AND BEVERAGE ATTENDANT #2 [place] [address] Nurse Practitioner Advanced Practice Nurse 09/02/23 Nohelia Haskins MD #[address] [address] Consulting Physician Urology 10/11/23 Aga Garay APRN, FOOD AND BEVERAGE ATTENDANT [address] [address] Nurse Practitioner Cardiology 12/14/24 Leandro Jacques MD #[address] [address] Consulting Physician Colon and Rectal Surgery 12/15/24 documented as of this encounter
--- OUTSIDE RECORDS SUMMARY | 2024-12-24 17:09 | XMS_ITS | Encounter Summary ---
Author Organization [facility] Address [address] [place] [address] Phone Care Team Providers Care Pairer Name Role Phone Negro Huerta APRN, SLIP MAKER Primary Care Pr ovider Denae Gonzalez DPM Unavailable [phone] Cherie Vizcarra INSTRUMENT AND CONTROL SERVICE PERSON Unavailable Unavailab Amado Singer HAT FINISHER, SLIP MAKER Unavailable [phone] Nohelia Haskins MD Unavailable [phone] Aga Garay APRN, SLIP MAKER Unavailable + [phone] Leandro Jacques MD Unavailable Reason for Visit * Reason Comments Medication Refill Encounter Details Date Type Department Care Team (Late st Contact Info) Description 07/09/2022 Refill [facility] - Family Medicine - [place] [address] [place] [address] Negro Huerta APRN, SLIP MAKER #[address] [address] Medication Refill Social History Tobacco Use Types Packs/Day Years Used Date Smoking Tobacco: Every Day Cigarettes Smokeless Tobacco: Never Alcohol Use Standard Drinks/Week Comments Not Currently 0 (1 standard drink = 0.6 oz pur e alcohol) PHQ-2 Answer Date Recorded Total Score - Questions 1-9 0 0 07/2021 Comments No Sex and Gender Information Value Date Recorded Sex Assigned at Female 11/15/2023 3:17 PM CDT Legal Sex Female 2:07 PM WEB PRODUCTION MANAGER Gender Identity Female 11/15/2023 3:17 PM CDT Sexual Orientation Straight 11/15/2023 3: 17 PM CDT COVID-19 Exposure Response Date Recorded In the last 10 days, have yo u been in contact with someone who was confirmed or suspected to have Coronavirus/COVID-19? No / Unsure 06/29/2022 11:55 AM WEB PRODUCTION MANAGER documented as of this encounter Miscellaneous Notes * Telephone Encounter - Ira Thompson RN - 07/09/2022 4:45 PM CST PDMP 06/08/22 Medication failed the protocol, provider to review and approve the medication order if appropriate. Requested Prescriptions Pending Prescriptions Disp Refills ALPRAZolam (XANAX) 1 MG Tablet [Pharmacy Med Name: ALPRAZOLAM 1MG TABLET] 90 Tablet 0 Sig: TAKE 1 TABLET BY MOUTH 3 TIMES DAILY NEEDED FOR ANXIETY. Not Delegated - Benzodiazepines Protocol Failed - 07/09/2022 11:48 AM Failed - This refill cannot be delegated Passed - Visit with relevant provider in past 12 months or upcoming 90 days Recent Visits Date Type Provider Dept 06/29/22 Office Visit Leti Byrnes APRN, [facility] 05/31/22 Office Visit Negro Huerta APRN, [facility] 02/26/22 Office Visit Negro Huerta APRN, [facility] 11/13/21 Office Visit Negro Huerta APRN, [facility] 08/28/21 Office Visit Negro Huerta APRN, [facility] 08/04/21 Office Visit Negro Huerta APRN, [facility] Showing recent visits within past 365 days and meeting all other requirements Future Appointments Date Type Provider Dept 09/28/22 Appointment Negro Huerta APRN, HOMAR [facility] Showing future appointments within next 90 days and meeting all other requirements PRODUCTION MANAGER documented in this encounter Plan of Treatment Upcoming Encounters Date Type Department Care Team (Late st Contact Info) Description 03/23/2025 1:30 PM WEB PRODUCTION MANAGER Office Visit [facility] Medical [facility] - Family Medicine - [place] [address]2 [place] [address] Negro Huerta APRN, SLIP MAKER #2 [facility] [address] [place] [address] 04/16/2025 1:00 PM WEB PRODUCTION MANAGER Office Visit [facility] - Cardiology - [place] [address] [place] [id number] Aga Garay APRN, SLIP MAKER 2 [facility] [address] [place] [address] 07/20/2025 1:00 PM CDT Office Visit [facility] UROLOGY #[address] [place] [address] Amado Early APRN, SLIP MAKER [address] [place] [address] documented as of this encounter Visit Diagnoses Diagnosis Anxiety Anxiety state, unspecified documented in this encounter Additional Health Concerns Assessment Noted Time PHQ-9 Depression Total Score: 0 07/07/19 22 10:00 AM WEB PRODUCTION MANAGER documented as of this encounter Care Teams Pairer Relationship Specialty Start Date End Date Negro Huerta APRN, HOMAR #2 [facility] [address] [place] [address] PCP - General Advanced Practice Nurse 07/06/21 Denae Gonzalez DPM #2 [facility] [address] [place] [address] Consulting Physician Podiatry 04/24/22 Cherie Vizcarra, INSTRUMENT AND CONTROL SERVICE PERSON [place] [employer] Equipment Mechanic Consulting Technical Director 06/03/23 06/12/23 Amado Early, HAT FINISHER, SLIP MAKER [address] [place] [address] Nurse Practitioner Advanced Practice Nurse 09/02/23 Nohelia Haskins MD #2 [facility] [address] [place] [address] Consulting Physician Urology 10/11/23 Aga Garay APRN, SLIP MAKER 2 [facility] [address] [place] [address] Nurse Practitioner Cardiology 12/14/24 Leandro Jacques MD #2 [facility] [address] [place] [address] Consulting Physician Colon and Rectal Surgery 12/15/24 documented as of this encounter
--- OUTSIDE RECORDS SUMMARY | 2024-12-24 17:09 | XMS_ITS | Encounter Summary ---
Author Organization [facility] Address [address] [place] [address] Phone Care Team Providers Care Director Of Public Works Name Role Phone Negro Huerta APRN, TECHNICAL OPERATIONS MANAGER Primary Care Pr ovider Denae Gonzalez DPM Unavailable [phone] Cherie Vizcarra JUVENILE JUSTICE OFFICER Unavailable Unavailab Amado Singer QUALITY ASSURANCE MONITOR BODY, TECHNICAL OPERATIONS MANAGER Unavailable [phone] Nohelia Haskins MD Unavailable [phone] Aga Garay APRN, TECHNICAL OPERATIONS MANAGER Unavailable + [phone] Leandro Jacques MD Unavailable Reason for Visit * Reason Comments Medication Refill Encounter Details Date Type Department Care Team (Late st Contact Info) Description 05/01/2023 Refill [facility] - Family Medicine - [place] [address]2 [place] [address] Negro Huerta APRN, TECHNICAL OPERATIONS MANAGER #[address] [address] Medication Refill Social History Tobacco Use Types Packs/Day Years Used Date Smoking Tobacco: Every Day Cigarettes Smokeless Tobacco: Never Alcohol Use Standard Drinks/Week Comments Not Currently 0 (1 standard drink = 0.6 oz pur e alcohol) PHQ-2 Answer Date Recorded Total Score - Questions 1-9 0 /0 07/2021 Education Answer Date Recorded What is the highest level of school you have completed or the highest degree you have received? Associate degree: occupational, technical, or vocational program 09/21/2022 Comments No Sex and Gender Information Value Date Recorded Sex Assigned at Female 11/15/2023 3:17 PM CDT Legal Sex Female 2:07 PM HAND TIRE TRIMMER Gender Identity Female 11/15/2023 3:17 PM CDT Sexual Orientation Straight 11/15/2023 3: 17 PM CDT documented as of this encounter Miscellaneous Notes * Telephone Encounter - Meg Sanford RN - 05/01/2023 2:26 PM HAND TIRE TRIMMER PDMP 04-04-23, 30 days Medication failed the protocol, provider to review and approve the medication order if appropriate. Requested Prescriptions Pending Prescriptions Disp Refills ALPRAZolam (XANAX) 1 MG Tablet [Pharmacy Med Name: ALPRAZOLAM 1MG TABLET] 90 Tablet 0 Sig: Take 1 Tablet by mouth 3 times daily as needed for Anxiety. Not Delegated - Benzodiazepines Protocol Failed - 05/01/2023 11:45 AM Failed - This refill cannot be delegated Passed - Visit with relevant provider in past 12 months or upcoming 90 days Recent Visits Date Type Provider Dept 04/04/23 Office Visit Leti Byrnes APRN, CNP [facility] 03/27/23 Office Visit Negro Huerta APRN, [facility] 01/29/23 Office Visit Negro Huerta APRN, [facility] 09/28/22 Office Visit Negro Huerta APRN, [facility] 06/29/22 Office Visit Leti Byrnes APRN, [facility] 05/31/22 Office Visit Negro Huerta APRN, [facility] Showing recent visits within past 365 days and meeting all other requirements Future Appointments Date Type Provider Dept 05/31/23 Appointment Negro Huerta APRN, TECHNICAL OPERATIONS MANAGER [facility] Showing future appointments within next 90 days and meeting all other requirements TIRE TRIMMER documented in this encounter Plan of Treatment Upcoming Encounters Date Type Department Care Team (Late st Contact Info) Description 03/23/2025 1:30 PM HAND TIRE TRIMMER Office Visit [facility] Medical [facility] - Family Medicine - [place] [address]2 [place] [address] Negro Huerta APRN, TECHNICAL OPERATIONS MANAGER #2 [facility] [address] [place] [address] 04/16/2025 1:00 PM HAND TIRE TRIMMER Office Visit [facility] - Cardiology - [place] #2 [facility] [place] [address] Aga Garay APRN, TECHNICAL OPERATIONS MANAGER 2 [facility] [address] [place] [address] 07/20/2025 1:00 PM CDT Office Visit [facility] UROLOGY #2 [facility] [place] [address] Amado Early APRN, TECHNICAL OPERATIONS MANAGER #2 [facility] [address] documented as of this encounter Visit Diagnoses Diagnosis Anxiety Anxiety state, unspecified documented in this encounter Additional Health Concerns Assessment Noted Time PHQ-9 Depression Total Score: 0 07/07/19 22 10:00 AM HAND TIRE TRIMMER documented as of this encounter Care Teams Director Of Public Works Relationship Specialty Start Date End Date Negro Huerta APRN, TECHNICAL OPERATIONS MANAGER #2 [facility] [address] [place] [address] PCP - General Advanced Practice Nurse 07/06/21 Denae Gonzalez DPM #2 [facility] [address] [place] [address] Consulting Physician Podiatry 04/24/22 Cherie Vizcarra, JUVENILE JUSTICE OFFICER [place] Vocational Counselor Acetylene Burner 06/03/23 06/12/23 Amado Early, QUALITY ASSURANCE MONITOR BODY, TECHNICAL OPERATIONS MANAGER #2 [place] [address] Nurse Practitioner Advanced Practice Nurse 09/02/23 Nohelia Haskins MD #2 [facility] [address] [place] [address] Consulting Physician Urology 10/11/23 Aga Garay QUALITY ASSURANCE MONITOR BODY, TECHNICAL OPERATIONS MANAGER 2 [facility] [address] [place] [address] Nurse Practitioner Cardiology 12/14/24 Leandro Jacques MD #2 [facility] [address] [place] [address] Consulting Physician Colon and Rectal Surgery 12/15/24 documented as of this encounter
--- OUTSIDE RECORDS SUMMARY | 2024-12-24 17:09 | XMS_ITS | Encounter Summary ---
Author Organization [facility] Address [address] [place] [address] Phone Care Team Providers Care Packaging Sales Representative Name Role Phone Negro Huerta APRN, ROTOR BALANCER Primary Care Pr ovider Denae Gonzalez DPM Unavailable [phone] Amado Early RAIL OPERATIONS CONTROLLER, ROTOR BALANCER Unavailable Nohelia Haskins MD Unavailable [phone] Aga Garay APRN, ROTOR BALANCER Unavailable + [phone] Leandro Jacques MD Unavailable Reason for Visit * Reason Comments Medication Refill Encounter Details Date Type Department Care Team (Late st Contact Info) Description 07/01/2023 Refill [facility] - Family Medicine - [place] #2 [place] [address] Negro Huerta APRN, ROTOR BALANCER #[address] [address] Medication Refill Social History Tobacco Use Types Packs/Day Years Used Date Smoking Tobacco: Every Day Cigarettes Smokeless Tobacco: Never Alcohol Use Standard Drinks/Week Comments Not Currently 0 (1 standard drink = 0.6 oz pur e alcohol) [facility] Utilities Answer Date Recorded In the [...] often do you attend chur ch or yarsanism services? Never 06/12/2023 Do you belong to any clubs o r organizations such as pentecostal groups, unions, fraternal or athletic groups, or [...] Total Score - Questions 1-9 9 11/2023 [facility] - [...] place to sleep or slept in a alf (including now)? No 06/12/2023 Education Answer Date Recorded What is the highest level of school you have completed or the highest degree you have received? Associate degree: occupational, technical, or vocational program 09/21/2022 Comments No Sex and Gender Information Value Date Recorded Sex Assigned at Female 11/15/2023 3:17 PM CDT Legal Sex Female 2:07 PM FOREIGN EXCHANGE CLERK Gender Identity Female 11/15/2023 3:17 PM CDT Sexual Orientation Straight 11/15/2023 3: 17 PM CDT documented as of this encounter Miscellaneous Notes * Telephone Encounter - Ira Thompson RN - 07/01/2023 4:58 PM CST PDMP 05/04/23, 06/01/23 Medication failed the protocol, provider to review and approve the medication order if appropriate. Requested Prescriptions Pending Prescriptions Disp Refills ALPRAZolam (XANAX) 1 MG Tablet [Pharmacy Med Name: ALPRAZOLAM 1MG TABLET] 90 Tablet 0 Sig: TAKE 1 TABLET BY MOUTH 3 TIMES DAILY NEEDED FOR ANXIETY. Not Delegated - Benzodiazepines Protocol Failed - 07/01/2023 9:57 AM Failed - This refill cannot be delegated Passed - Visit with relevant provider in past 12 months or upcoming 90 days Recent Visits Date Type Provider Dept 05/31/23 Office Visit Negro Huerta APRN, CNP [facility] 04/04/23 Office Visit Leti Byrnes APRN, CNP [facility] 03/27/23 Office Visit Negro Huerta APRN, CNP [facility] 01/29/23 Office Visit Negro Huerta APRN, [facility] 09/28/22 Office Visit Negro Huerta APRN, [facility] Showing recent visits within past 365 days and meeting all other requirements Future Appointments No visits were found meeting these conditions. Showing future appointments within next 90 days and meeting all other requirements nitroGLYCERIN (NITROSTAT) 0.4 MG SL Tablet [Pharmacy Med Name: NITROGLYCERIN 0.4MG TAB SUBLINGUAL] 90 Tablet 2 Sig: DISSOLVE 1 TABLET UNDER THE TONGUE EVERY 5 MINUTES UNTIL CHEST PAIN STOPS OR HEADACHE Nitrates Protocol Passed - 07/01/2023 9:57 AM Passed - Visit with relevant provider in past year or upcoming 90 days Recent Visits Date Type Provider Dept 05/31/23 Office Visit Negro Huerta APRN, CNP [facility] 04/04/23 Office Visit Leti Byrnes APRN, CNP [facility] 03/27/23 Office Visit Negro Huerta APRN, CNP [facility] 01/29/23 Office Visit Negro Huerta APRN, CNP [facility] 09/28/22 Office Visit Negro Huerta APRN, [facility] Showing recent visits within past 365 days and meeting all other requirements Future Appointments No visits were found meeting these conditions. Showing future appointments within next 90 days and meeting all other requirements IGN EXCHANGE CLERK documented in this encounter Plan of Treatment Upcoming Encounters Date Type Department Care Team (Late st Contact Info) Description 03/23/2025 1:30 PM FOREIGN EXCHANGE CLERK Office Visit [facility] Medical Group - Family Medicine - [place] #2 [place] [address] Negro Huerta APRN, ROTOR BALANCER #[address] [address] 04/16/2025 1:00 PM FOREIGN EXCHANGE CLERK Office Visit [facility] - Cardiology - [place] #2 [place] [address] Aga Garay APRN, ROTOR BALANCER 2 [facility] [address] [place] [address] 07/20/2025 1:00 PM CDT Office Visit [facility] UROLOGY #2 [place] [address] Amado Early APRN, ROTOR BALANCER #2 [place] [address] documented as of this encounter Visit Diagnoses Diagnosis Anxiety Anxiety state, unspecified documented in this encounter Additional Health Concerns Assessment Noted Time PHQ-9 Depression Total Score: 9 06/12/19 24 3:31 PM FOREIGN EXCHANGE CLERK documented as of this encounter Care Teams Packaging Sales Representative Relationship Specialty Start Date End Date Negro Huerta APRN, HOMAR #[address] [address] PCP - General Advanced Practice Nurse 07/06/21 Denae Gonzalez DPM #[address] [address] Consulting Physician Podiatry 04/24/22 Amado Early APRN, ROTOR BALANCER #2 [place] [address] Nurse Practitioner Advanced Practice Nurse 09/02/23 Nohelia Haskins MD #2 [facility] [address] [place] [address] Consulting Physician Urology 10/11/23 Aga Garay APRN, ROTOR BALANCER 2 [facility] [address] [place] [address] Nurse Practitioner Cardiology 12/14/24 Leandro Jacques MD #2 [facility] [address] [place] [address] Consulting Physician Colon and Rectal Surgery 12/15/24 documented as of this encounter
--- OUTSIDE RECORDS SUMMARY | 2024-12-24 17:09 | XMS_ITS | Encounter Summary ---
Author Organization [facility] Address [address] [place] [address] Phone Care Team Providers Care Mothercraft Nurse Name Role Phone Negro Huerta APRN, STEAM BOILER FIREMAN Primary Care Pr ovider Denae Gonzalez DPM Unavailable [phone] Amado Early PLUMBER'S HELPER, STEAM BOILER FIREMAN Unavailable Nohelia Haskins MD Unavailable [phone] Aga Garay APRN, STEAM BOILER FIREMAN Unavailable + [phone] Leandro Jacques MD Unavailable Reason for Visit * Reason Comments Medication Refill Encounter Details Date Type Department Care Team (Late st Contact Info) Description 02/27/2024 Refill [facility] - Family Medicine - [place] #2 [place] [address] Negro Huerta APRN, STEAM BOILER FIREMAN #[address] [address] Medication Refill Social History Tobacco Use Types Packs/Day Years Used Date Smoking Tobacco: Every Day Cigarettes Smokeless Tobacco: Never Alcohol Use Standard Drinks/Week Comments Not Currently 0 (1 standard drink = 0.6 oz pur e alcohol) [facility] Utilities Answer Date [...] often do you attend chur ch or yazidi services? Never 06/12/2023 Do you belong to any clubs o r organizations such as mormon groups, unions, fraternal or athletic groups, or [...] Total Score - Questions 1-9 9 11/2023 [facility] - [...] PM CDT Legal Sex Female 2:07 PM TUNNEL KILN OPERATOR Gender Identity Female 11/15/2023 3:17 PM CDT Sexual Orientation Straight 11/15/2023 3: 17 PM CDT documented as of this encounter Miscellaneous Notes * Telephone Encounter - Ira Thompson RN - 02/28/2024 3:01 PM CDT Images from the original note were not included. DULoxetine HCl Dispensed Days Supply Quantity Provider Pharmacy DULOXETINE HCL DR 20 MG CAP 02/27/2024 30 60 Capsule Negro Huerta APRN, STEAM BOILER FIREMAN [facility] 20 MG CAP 01/30/2024 30 60 Capsule Negro Huerta APRN, STEAM BOILER FIREMAN [facility] documented in this encounter Plan of Treatment Upcoming Encounters Date Type Department Care Team (Late st Contact Info) Description 03/23/2025 1:30 PM TUNNEL KILN OPERATOR Office Visit [facility] Medical Group - Family Medicine - [place] #2 [place] [address] Negro Huerta APRN, STEAM BOILER FIREMAN #2 [facility] [address] [place] [address] 04/16/2025 1:00 PM TUNNEL KILN OPERATOR Office Visit [facility] - Cardiology - [place] #2 [place] [address] Aga Garay APRN, STEAM BOILER FIREMAN 2 [facility] [address] [place] [address] 07/20/2025 1:00 PM CDT Office Visit [facility] UROLOGY #2 [place] [phone] Amado Early APRN, STEAM BOILER FIREMAN #[address] [place] [address] documented as of this encounter Visit Diagnoses Diagnosis Bipolar disorder with depression (HCC) Bipolar I disorder, most recent episode (or current) depressed, unspecified documented in this encounter Additional Health Concerns Assessment Noted Time PHQ-9 Depression Total Score: 9 06/12/19 24 3:31 PM TUNNEL KILN OPERATOR documented as of this encounter Care Teams Mothercraft Nurse Relationship Specialty Start Date End Date Negro Huerta APRN, STEAM BOILER FIREMAN #2 [facility] [address] [place] [address] PCP - General Advanced Practice Nurse 07/06/21 Denae Gonzalez DPM #2 [facility] [address] [place] [address] Consulting Physician Podiatry 04/24/22 Amado Early APRN, STEAM BOILER FIREMAN #[address] [place] [address] Nurse Practitioner Advanced Practice Nurse 09/02/23 Nohelia Haskins MD #2 [facility] [address] [place] [address] Consulting Physician Urology 10/11/23 Aga Garay APRN, STEAM BOILER FIREMAN 2 [facility] [address] [place] [address] Nurse Practitioner Cardiology 12/14/24 Leandro Jacques MD #2 [facility] [address] [place] [address] Consulting Physician Colon and Rectal Surgery 12/15/24 documented as of this encounter
--- OUTSIDE RECORDS SUMMARY | 2024-12-24 17:09 | XMS_ITS | Encounter Summary ---
Author Organization [facility] Address [address] [place] [address] Phone Care Team Providers Care Hydraulic Rubbish Compactor Mechanic Name Role Phone Negro Huerta APRN, JIG BUILDER HELPER Primary Care Pr ovider Denae Gonazlez DPM Unavailable [phone] Cherie Vizcarra MANAGER TECHNICAL Unavailable Unavailab Amado Singer PLYWOOD PATCHER, JIG BUILDER HELPER Unavailable Nohelia Haskins MD Unavailable [phone] Aga Garay APRN, JIG BUILDER HELPER Unavailable + [phone] Leandro Jacques MD Unavailable Reason for Visit * Reason Comments Medication Refill Encounter Details Date Type Department Care Team (Late st Contact Info) Description 07/26/2022 [facility]ill [facility] - [facility] Medicine - [place] #2 [place] [address] Negro Huerta APRN, JIG BUILDER HELPER #[address] [address] Medication Refill Social History Tobacco Use Types Packs/Day Years Used Date Smoking Tobacco: Every Day Cigarettes Smokeless Tobacco: Never Alcohol Use Standard Drinks/Week Comments Not Currently 0 (1 standard drink = 0.6 oz pur e alcohol) PHQ-2 Answer Date Recorded Total Score - Questions 1-9 0 07/2021 Comments No Sex and Gender Information Value Date Recorded Sex Assigned at Female 11/15/2023 3:17 PM CDT Legal Sex Female 2:07 PM ADMINISTRATIVE JUDGE Gender Identity Female 11/15/2023 3:17 PM CDT Sexual Orientation Straight 11/15/2023 3: 17 PM CDT COVID-19 Exposure Response Date Recorded In the last 10 days, have yo u been in contact with someone who was confirmed or suspected to have Coronavirus/COVID-19? No / Unsure 06/29/2022 11:55 AM ADMINISTRATIVE JUDGE documented as of this encounter Plan of Treatment Upcoming Encounters Date Type Department Care Team (Late st Contact Info) Description 03/23/2025 1:30 PM ADMINISTRATIVE JUDGE Office Visit [facility] - Family Medicine - [place] #2 [place] [address] Negro Huerta, PLYWOOD PATCHER, JIG BUILDER HELPER #2 [facility] [address] [place] [address] 04/16/2025 1:00 PM ADMINISTRATIVE JUDGE Office Visit [facility] - Cardiology - [place] #2 [place] [address] Aga Garay PLYWOOD PATCHER, JIG BUILDER HELPER 2 [facility] [address] [place] [address] 07/20/2025 1:00 PM CDT Office Visit [facility] UROLOGY #2 [place] [address] Amado Early PLYWOOD PATCHER, JIG BUILDER HELPER #2 [place] [address] documented as of this encounter Visit Diagnoses Diagnosis Anxiety Anxiety state, unspecified documented in this encounter Additional Health Concerns Assessment Noted Time PHQ-9 Depression Total Score: 0 07/07/19 10:00 AM ADMINISTRATIVE JUDGE documented as of this encounter Care Teams Hydraulic Rubbish Compactor Mechanic Relationship Specialty Start Date End Date Negro Huerta, PLYWOOD PATCHER, JIG BUILDER HELPER #2 [facility] [address] [place] [address] PCP - General Advanced Practice Nurse 07/06/21 Denae Gonzalez DPMiguel #2 [facility] [address] [place] [address] Consulting Physician Podiatry 04/24/22 Cherie Vizcarra LSW [place] Inspector Machine Cut Glass Creative Strategist 06/03/23 06/12/23 Amado Early APRN, JIG BUILDER HELPER #2 [place] [address] Nurse Practitioner Advanced Practice Nurse 09/02/23 Nohelia Haskins MD #2 [facility] [address] [place] [address] Consulting Physician Urology 10/11/23 Aga Garay APRN, JIG BUILDER HELPER 2 [facility] [address] [place] [address] Nurse Practitioner Cardiology 12/14/24 Leandro Jacques MD #[address] [address] Consulting Physician Colon and Rectal Surgery 12/15/24 documented as of this encounter
--- OUTSIDE RECORDS SUMMARY | 2024-12-24 17:09 | XMS_ITS | Encounter Summary ---
Author Organization [facility] Address [address] [place] [address] Phone Care Team Providers Care Telephone Lines Repairer Name Role Phone Negro Huerta APRN, RUG REPAIRER Primary Care Pr ovider Denae Gonzalez DPM Unavailable [phone] Cherie Vizcarra DISTRICT SALES MANAGER Unavailable Unavailab Amado Singer UTILITY PLANT OPERATIVE, RUG REPAIRER Unavailable [phone] Nohelia Haskins MD Unavailable [phone] Aga Garay APRN, RUG REPAIRER Unavailable + [phone] Leandro Jacques MD Unavailable Reason for Visit * Reason Comments Medication Refill Encounter Details Date Type Department Care Team (Late st Contact Info) Description 01/04/2023 Refill [facility] - [facility] Medicine - [place] #2 [place] [address] Negro Huerta APRN, RUG REPAIRER #[address] [address] Medication Refill Social History Tobacco Use Types [...] PM CDT Legal Sex Female 2:07 PM COMPUTER SYSTEMS INTEGRATOR Gender Identity Female 11/15/2023 3:17 PM CDT Sexual Orientation Straight 11/15/2023 3: 17 PM CDT COVID-19 Exposure Response Date Recorded In the last 10 days, have yo u been in contact with someone who was confirmed or suspected to have Coronavirus/COVID-19? No / Unsure 12/27/2022 11:43 AM CDT documented as of this encounter Miscellaneous Notes * Telephone Encounter - Angie Senior RN - 01/04/2023 11:48 AM CDT Medication failed the protocol, provider to review and approve the medication order if appropriate. Requested Prescriptions Pending Prescriptions Disp Refills ALPRAZolam (XANAX) 1 MG Tablet [Pharmacy Med Name: ALPRAZOLAM 1MG TABLET] 90 Tablet 0 Sig: Take 1 Tablet by mouth 3 times daily as needed for Anxiety. Not Delegated - Benzodiazepines Protocol Failed - 01/04/2023 10:29 AM Failed - This refill cannot be delegated Passed - Visit with relevant provider in past 12 months or upcoming 90 days Recent Visits Date Type Provider Dept 09/28/22 Office Visit Negro Huerta APRN, [facility] [place] 06/29/22 Office Visit Leti Byrnes APRN, [facility] [place] 05/31/22 Office Visit Negro Huerta APRN, [facility] [place] 02/26/22 Office Visit Negro Huerta APRN, [facility] [place] Showing recent visits within past 365 days and meeting all other requirements Future Appointments Date Type Provider Dept 01/29/23 Appointment Negro Huerta APRN, [facility] Showing future appointments within next 90 days and meeting all other requirements * Telephone Encounter - Angie Senior RN - 01/04/2023 11:47 AM CDT Per [place] PDMP last fill date 12/05/22. documented in this encounter Plan of Treatment Upcoming Encounters Date Type Department Care Team (Late st Contact Info) Description 03/23/2025 1:30 PM COMPUTER SYSTEMS INTEGRATOR Office Visit [facility] Medical [facility] - Family Medicine - [place] [address]2 [place] [address] Negro Huerta APRN, RUG REPAIRER #[address] [address] 04/16/2025 1:00 PM COMPUTER SYSTEMS INTEGRATOR Office Visit [facility] Medical [facility] - Cardiology - [place] #2 [place] [address] Aga Garay APRN, HOMAR 2 [facility] [address] [place] [address] 07/20/2025 1:00 PM CDT Office Visit [facility] UROLOGY #2 [place] [address] Amado Early APRN, RUG REPAIRER #2 [place] [address] documented as of this encounter Visit Diagnoses Diagnosis Anxiety Anxiety state, unspecified documented in this encounter Additional Health Concerns Assessment Noted Time PHQ-9 Depression Total Score: 0 07/07/19 22 10:00 AM COMPUTER SYSTEMS INTEGRATOR documented as of this encounter Care Teams Telephone Lines Repairer Relationship Specialty Start Date End Date Negro Huerta APRN, RUG REPAIRER #2 [facility] [address] [place] [address] PCP - General Advanced Practice Nurse 07/06/21 Denae Gonzalez DPMiguel #2 [facility] [address] [place] [address] Consulting Physician Podiatry 04/24/22 Cherie Vizcarra, [facility] Eyeglass Inspector Skein Dyer 06/03/23 06/12/23 Amado Early, UTILITY PLANT OPERATIVE, RUG REPAIRER #2 [place] [address] Nurse Practitioner Advanced Practice Nurse 09/02/23 Nohelia Haskins MD #2 [facility] [address] [place] [address] Consulting Physician Urology 10/11/23 Aga Garay APRN, RUG REPAIRER 2 [facility] [address] [place] [address] Nurse Practitioner Cardiology 12/14/24 Leandro Jacques MD #[address] [address] Consulting Physician Colon and Rectal Surgery 12/15/24 documented as of this encounter
--- OUTSIDE RECORDS SUMMARY | 2024-12-24 17:09 | XMS_ITS | Encounter Summary ---
Author Organization [facility] Address [address] [place] [address] Phone Care Team Providers Care Water Jet Loom Fixer Name Role Phone Negro Huerta APRN, ADVICE CLERK Primary Care Pr ovider Denae Gonzalez DPM Unavailable [phone] Cherie Vizcarra PUBLIC HEALTH SOCIAL WORKER Unavailable Unavailab Amado Singer QUALITY ASSURANCE MONITOR BODY, ADVICE CLERK Unavailable Nohelia Haskins MD Unavailable [phone] Aga Garay APRN, ADVICE CLERK Unavailable + [phone] Leandro Jacques MD Unavailable Reason for Visit * Reason Comments Medication Refill Encounter Details Date Type Department Care Team (Late st Contact Info) Description 10/31/2022 Refill [facility] - [facility] Medicine - [place] #2 [place] [address] Negro Huerta APRN, ADVICE CLERK #[address] [address] Medication Refill Social History Tobacco Use Types [...] PM CDT Legal Sex Female 2:07 PM PULVERIZER Gender Identity Female 11/15/2023 3:17 PM CDT Sexual Orientation Straight 11/15/2023 3: 17 PM CDT COVID-19 Exposure Response Date Recorded In the last 10 days, have yo u been in contact with someone who was confirmed or suspected to have Coronavirus/COVID-19? No / Unsure 10/31/2022 5:42 PM CDT documented as of this encounter Miscellaneous Notes * Telephone Encounter - Leti Byrnes APRN, CNP - 11/01/2022 11:30 AM CDT [place] [employer] reviewed, approved * Telephone Encounter - Ira Thompson RN - 11/01/2022 8:54 AM CDT PDMP 10/03/22 Medication failed the protocol, provider to review and approve the medication order if appropriate. Requested Prescriptions Pending Prescriptions Disp Refills ALPRAZolam (XANAX) 1 MG Tablet [Pharmacy Med Name: ALPRAZOLAM 1MG TABLET] 90 Tablet 0 Sig: Take 1 Tablet by mouth 3 times daily as needed for Anxiety. Not Delegated - Benzodiazepines Protocol Failed - 10/31/2022 8:13 AM Failed - This refill cannot be delegated Passed - Visit with relevant provider in past 12 months or upcoming 90 days Recent Visits Date Type Provider Dept 09/28/22 Office Visit Negro Huerta APRN, CNP [facility] 06/29/22 Office Visit Leti Byrnes APRN, CNP [facility] 05/31/22 Office Visit Negro Huerta APRN, [facility] [place] 02/26/22 Office Visit Negro Huerta APRN, [facility] [place] 11/13/21 Office Visit Negro Huerta APRN, [facility] Showing recent visits within past 365 days and meeting all other requirements Future Appointments Date Type Provider Dept 01/29/23 Appointment Negro Huerta APRN, CNP [facility] Showing future appointments within next 90 days and meeting all other requirements * Telephone Encounter - Ira Thompson RN - 11/01/2022 8:53 AM CDT Images from the original note were not included. ALPRAZolam Dispensed Days Supply Quantity Provider Pharmacy ALPRAZOLAM 1MG TAB 10/03/2022 30 90 Tablet Negro Huerta APRN, CNP [id number] ... ALPRAZOLAM 1MG TAB 09/05/2022 30 90 Tablet Negro Huerta APRN, CNP [id number] ... ALPRAZolam 1MG TAB 08/09/2022 30 90 Each [facility] APRN, CNP [facility] ... documented in this encounter Plan of Treatment Upcoming Encounters Date Type Department Care Team (Late st Contact Info) Description 03/23/2025 1:30 PM PULVERIZER Office Visit [facility] - Family Medicine - [place] #2 [place] [address] Negro Huerta APRN, CNP [address] [address] 04/16/2025 1:00 PM PULVERIZER Office [facility] - Cardiology - [place] #2 [place] [address] Aga Garay APRN, ADVICE CLERK 2 [facility] [address] [place] [address] 07/20/2025 1:00 PM CDT Office Visit [facility] #[address] [place] [address] Amado Early APRN, ADVICE CLERK #2 [place] [address] documented as of this encounter Visit Diagnoses Diagnosis Anxiety Anxiety state, unspecified documented in this encounter Additional Health Concerns Assessment Noted Time PHQ-9 Depression Total Score: 0 07/07/19 22 10:00 AM PULVERIZER documented as of this encounter Care Teams Water Jet Loom Fixer Relationship Specialty Start Date End Date Negro Huerta APRN, ADVICE CLERK #2 [facility] [address] [place] [address] PCP - General Advanced Practice Nurse 07/06/21 Denae Gonzalez DPM #2 [facility] [address] [place] [address] Consulting Physician Podiatry 04/24/22 Cherie Vizcarra, [place] Hack Driver Teacher Theater Arts 06/03/23 06/12/23 Amado Early APRN, ADVICE CLERK #2 [place] [address] Nurse Practitioner Advanced Practice Nurse 09/02/23 Nohelia Haskins MD #2 [facility] [address] [place] [address] Consulting Physician Urology 10/11/23 Aga Garay APRN, ADVICE CLERK 2 [facility] [address] [place] [address] Nurse Practitioner Cardiology 12/14/24 Leandro Jacques MD #2 [facility] [address] [place] [address] Consulting Physician Colon and Rectal Surgery 12/15/24 documented as of this encounter
--- OUTSIDE RECORDS SUMMARY | 2024-12-24 17:09 | XMS_ITS | Encounter Summary ---
Author Organization [facility] Address [address] [place] [address] Phone Care Team Providers Care Batch Room Technician Name Role Phone Negro Huerta APRN, BOX LIDDER Primary Care Pr ovider Denae Gonzalez DPM Unavailable [phone] Cherie Vizcarra LOAN SECRETARY Unavailable Unavailab Amado Singer SUPERVISOR SLATE SPLITTING, BOX LIDDER Unavailable [phone] Nohelia Haskins MD Unavailable [phone] Aga Garay APRN, BOX LIDDER Unavailable + [phone] Leandro Jacques MD Unavailable Reason for Visit * Reason Comments Medication Refill Encounter Details Date Type Department Care Team (Late st Contact Info) Description 10/04/2021 Refill [facility] - [facility] Medicine - [place] #2 [place] [address] Negro Huerta APRN, BOX LIDDER #[address] [address] Medication Refill Social History Tobacco Use Types [...] PM CDT Legal Sex Female 2:07 PM M1A1 TANK CREWMAN Gender Identity Female 11/15/2023 3:17 PM CDT Sexual Orientation Straight 11/15/2023 3: 17 PM CDT documented as of this encounter Miscellaneous Notes * Telephone Encounter - Shameka Duque RN - 10/04/2021 11:57 AM CDT PDMP 09/03/21 Medication failed the protocol, provider to review and approve the medication order if appropriate. Requested Prescriptions Pending Prescriptions Disp Refills ALPRAZolam (XANAX) 1 MG Tablet [Pharmacy Med Name: ALPRAZOLAM 1MG TABLET] 90 Tablet 0 Sig: TAKE 1 TABLET BY MOUTH 3 TIMES DAILY NEEDED FOR ANXIETY. DO NOT FILL UNTIL 09/04/2021 Not Delegated - Benzodiazepines Protocol Failed - 10/04/2021 11:41 AM Failed - This refill cannot be delegated Passed - Visit with relevant provider in past 12 months or upcoming 90 days Recent Visits Date Type Provider Dept 08/28/21 Office Visit Negro Huerta APRN, CNP [facility] 08/04/21 Office Visit Negro Huerta APRN, CNP [facility] 07/06/21 Office Visit Negro Huerta APRN, [facility] Showing recent visits within past 365 days and meeting all other requirements Future Appointments Date Type Provider Dept 11/09/21 Appointment Negro Huerta APRN, [facility] [place] Showing future appointments within next 90 days and meeting all other requirements documented in this encounter Plan of Treatment Upcoming Encounters Date Type Department Care Team (Late st Contact Info) Description 03/23/2025 1:30 PM M1A1 TANK CREWMAN Office Visit [facility] - Family Medicine - [place] #2 [place] [address] Negro Huerta, SUPERVISOR SLATE SPLITTING, BOX LIDDER #[address] [address] 04/16/2025 1:00 PM M1A1 TANK CREWMAN [facility] Visit [facility] - Cardiology [facility] #2 [place] [address] Aga Garay APRN, BOX LIDDER [address] [address] 07/20/2025 1:00 PM CDT Office Visit [facility] UROLOGY #2 [place] [address] Amado Early APRN, BOX LIDDER #2 [place] [address] documented as of this encounter Visit Diagnoses Diagnosis Anxiety Anxiety state, unspecified documented in this encounter Additional Health Concerns Infection Onset Date Last Indicated Resolved Time COVID - 19 Confirmed 01/15/2022 01/15/2022 022 12:16 AM CDT Assessment Noted Time PHQ-9 Depression Total Score: 0 07/07/19 22 10:00 AM M1A1 TANK CREWMAN documented as of this encounter Care Teams Batch Room Technician Relationship Specialty Start Date End Date Negro Huerta APRN, BOX LIDDER #[address] [address] PCP - General Advanced Practice Nurse 07/06/21 Denae Gonzalez DPM #[address] [address] Consulting Physician Podiatry 04/24/22 Cherie Vizcarra LSW [place] Technician Test Systems Delivery Lead 06/03/23 06/12/23 Amado Early APRN, BOX LIDDER #2 [place] [address] Nurse Practitioner Advanced Practice Nurse 09/02/23 Nohelia Haskins MD #2 [facility] [address] [place] [address] Consulting Physician Urology 10/11/23 Aga Garay APRN, BOX LIDDER 2 [facility] [address] [place] [address] Nurse Practitioner Cardiology 12/14/24 Leandro Jacques MD #2 [facility] [address] [place] [address] Consulting Physician Colon and Rectal Surgery 12/15/24 documented as of this encounter
--- OUTSIDE RECORDS SUMMARY | 2024-12-24 17:09 | XMS_ITS | Clinical Summary ---
Author Organization [facility] Address [address] [place] [address] Care Team Providers Care Hematology Specialist Name Role Phone Unavailable Primary Care Provider Unavailabl e Social History Tobacco Use Types Packs/Day Years Used Date Smoking Tobacco: Never Assessed Comments Unknown Sex and Gender Information Value Date Recorded Sex Assigned at Not on file Legal Sex Female 6:09 AM CDT Gender Identity Not on file Sexual Orientation Not on file Plan of Treatment Health Maintenance Due Date Last Done Comments Cervical Cancer Screening Pa p Smear (Age 30 to 64) Every 3 Years 1970 Colorectal Cancer Screening Colonoscopy (10 Years) 1970 Annual Physical 1973 Hepatitis C 1988 DTaP, Tdap and Td Vaccines ( 1 - Tdap) 1989 Hepatitis B Vaccines (1 of 3 - 19+ 3-dose series) 1989 Cervical Cancer Screening Pa p with HPV Testing (Age 30 to 64) Every 5 Years 2000 Cervical Cancer Screening with HPV 2000 Mammogram Screening 2010 Pneumococcal Vaccine: 50+ Ye ars (1 of 1 - PCV) 2020 Zoster Vaccines (1 of 2) 2020 COVID-19 Vaccine (2023-2 5 season) 2024 Meningococcal B Vaccine Aged Out No l onger eligible based on patient's age to complete this topic Meningococcal Vaccine Aged Out No lewis marisol eligible based on patient's age to complete this topic RSV Immunizations Under 20 Months Aged Out No longer eligible based on patient's age to complete this topic Insurance [place] [address]
--- OUTSIDE RECORDS SUMMARY | 2024-12-24 17:09 | XMS_ITS | Encounter Summary ---
Author Organization [facility] Address [address] [place] [address] Phone Care Team Providers Care Machine Set Up Name Role Phone Negro Huerta APRN, HOUSE FATHER Primary Care Pr ovider Denae Gonzalez DPM Unavailable [phone] Cherie Vizcarra WET MILLING WHEEL OPERATOR Unavailable Unavailab Amado Singer BRAKE LINING FINISHER ASBESTOS, HOUSE FATHER Unavailable [phone] Nohelia Haskins MD Unavailable [phone] Aga Garay APRN, HOUSE FATHER Unavailable + [phone] Leandro Jacques MD Unavailable Reason for Visit * Reason Comments Medication Refill Encounter Details Date Type Department Care Team (Late st Contact Info) Description 09/01/2021 Refill [facility] - Family Medicine - [place] #2 [place] [address] Negro Huerta APRN, HOUSE FATHER #[address] [address] Medication Refill Social History Tobacco Use Types Packs/Day Years Used Date Smoking Tobacco: Every Day Cigarettes Smokeless Tobacco: Never Alcohol Use Standard Drinks/Week Comments Not Currently 0 (1 standard drink = 0.6 oz pur e alcohol) PHQ-2 Answer Date Recorded Total Score - Questions 1-9 0 03/0 07/2021 Comments No Sex and Gender Information Value Date Recorded Sex Assigned at Female 11/15/2023 3:17 PM CDT Legal Sex Female 2:07 PM BREWMASTER Gender Identity Female 11/15/2023 3:17 PM CDT Sexual Orientation Straight 11/15/2023 3: 17 PM CDT COVID-19 Exposure Response Date Recorded In the last 10 days, have yo u been in contact with someone who was confirmed or suspected to have Coronavirus/COVID-19? No / Unsure 08/28/2021 2:48 PM CDT documented as of this encounter Miscellaneous Notes * Telephone Encounter - Ira Thompson RN - 09/01/2021 1:17 PM CDT PDMP 08/04/21 Medication failed the protocol, provider to review and approve the medication order if appropriate. Requested Prescriptions Pending Prescriptions Disp Refills ALPRAZolam (XANAX) 1 MG Tablet [Pharmacy Med Name: ALPRAZOLAM 1MG TABLET] 90 Tablet 0 Sig: Take 1 Tablet by mouth 3 times daily as needed for Anxiety. Not Delegated - Benzodiazepines Protocol Failed - 09/01/2021 10:54 AM Failed - This refill cannot be [...] Upcoming Encounters Date Type Department Care Team (Benjamin haynes Contact Info) Description 03/23/2025 1:30 PM BREWMASTER Office Visit [facility] - Family Medicine - [place] #2 [place] [address] Negro Huerta, BRAKE LINING FINISHER ASBESTOS, HOUSE FATHER #2 [facility] [address] [place] [address] 04/16/2025 1:00 PM BREWMASTER Office Visit [facility] - Cardiology - [place] #2 [facility] [place] [place] [address] Aga Garay BRAKE LINING FINISHER ASBESTOS, HOUSE FATHER 2 [facility] [address] [place] [address] 07/20/2025 1:00 PM CDT Office Visit [facility] UROLOGY #2 [place] [address] Amado Early BRAKE LINING FINISHER ASBESTOS, HOUSE FATHER #2 [place] [address] documented as of this encounter Visit Diagnoses Diagnosis Anxiety Anxiety state, unspecified documented in this encounter Additional Health Concerns Infection Onset Date Last Indicated Resolved Time COVID - 19 Confirmed 01/15/2022 01/15/2022 022 12:16 AM CDT Assessment Noted Time PHQ-9 Depression Total Score: 0 07/07/19 22 10:00 AM BREWMASTER documented as of this encounter Care Teams Machine Set Up Relationship Specialty Start Date End Date Negro Huerta, BRAKE LINING FINISHER ASBESTOS, HOUSE FATHER #[address] [address] PCP - General Advanced Practice Nurse 07/06/21 Denae Gonzalez DPM #2 [facility] [address] [place] [address] Consulting Physician Podiatry 04/24/22 Cherie Vizcarra, [facility] Prep Cook Linen Room Supervisor 06/03/23 06/12/23 Amado Early APRN, HOUSE FATHER #2 [place] [address] Nurse Practitioner Advanced Practice Nurse 09/02/23 Nohelia Haskins MD #2 [facility] [address] [place] [address] Consulting Physician Urology 10/11/23 Aga Garay APRN, HOUSE FATHER 2 [facility] [address] [place] [address] Nurse Practitioner Cardiology 12/14/24 Leandro Jacques MD #2 [facility] [address] [place] [address] Consulting Physician Colon and Rectal Surgery 12/15/24 documented as of this encounter
--- OUTSIDE RECORDS SUMMARY | 2024-12-24 17:09 | XMS_ITS | Clinical Summary ---
Author Organization [facility] ENTER Address [address] [place] [address] Phone Care Team Providers Care Vp Name Role Phone Negro Huerta LINOLEUM LAYER HELPER, MONUMENT STONECUTTER Primary Care Pr ovider Denae Gonzalez DPM Unavailable [phone] Amado Early LINOLEUM LAYER HELPER, MONUMENT STONECUTTER Unavailable [phone] Nohelia Haskins MD Unavailable [phone] Aga Garay LINOLEUM LAYER HELPER, MONUMENT STONECUTTER Unavailable [phone] Leandro Jacques MD Unavailable Allergies Active Allergy Reactions Criticality Noted Date Comments Buprenorphine Itching 02/19/2022 Had a rash and itching from the patch Bupropion Unknown 09/14/2020 Chlorhexidine Other (see Comments),Rash Medium 05/30/2016 Gabapentin Other (see Comments) 07/03/2021 Causes patient to feel weird and she has blacked out on the medication in the past Hexachlorophene Unknown 09/14/2020 Hydralazine Unknown 09/14/2020 Ibuprofen Unknown 09/14/2020 Naproxen Unknown 09/14/2020 Neomycin Rash 07/03/2021 Penicillin G Procaine Unknown Low 10/20/2018 Penicillins Rash 07/03/2021 Pregabalin Unknown 12/22/2020 Blood pressure drops exteremly low Blood pressure drops exteremly low Fluoxetine Other (see Comments) 07/03/2021 Causes liver enzymes to go up Spironolactone Swelling High 01/15/2023 Vancomycin Rash 07/03/2021 Medications aspirin 81 MG Chewable Tablet Take 81 mg by mouth daily. Active Vitamin D, Ergocalciferol, 85217 units Capsule Take 1 Capsule by mouth once a week. Active clindamycin (CLINDAGEL) 1 % Gel 03/14/20 23 Active lisinopril (PRINIVIL, ZESTRIL) 5 MG Tablet Take 5 mg by mouth 2 times daily. 03/11/20 23 Active nitroGLYCERIN (NITROSTAT) 0.4 MG SL Tablet DISSOLVE 1 TABLET UNDER THE TONGUE EVERY 5 MINUTES UNTIL CHEST PAIN STOPS OR HEADACHE 90 Tablet 2 07/02/19 24 Active DULoxetine (CYMBALTA) [address] Dong ns:Bipolar disorder with depression (HCC) TAKE 2 CAPSULES BY MOUTH NIGHTLY. 180 Capsule 3 05/17/19 25 Active omeprazole (PriLOSEC) 40 MG CAPSULE DELAYED RELEASE Take 1 Capsule by mouth daily. 90 Capsule 3 05/21/19 25 Active ipratropium-albute rol (Combivent Respimat) 20-100 MCG/ACT Aerosol Solution INHALE 1 PUFF BY MOUTH EVERY 4 HOURS NEEDED FOR WHEEZING OR SHORTNESS OF BREATH 12 g 3 05/25/19 25 Active amitriptyline (ELAVIL) 75 MG Tablet TAKE 1 TABLET BY MOUTH NIGHTLY. 90 Tablet 3 06/12/19 25 Active ALPRAZolam (XANAX) 1 MG TabletIndications: Anxiety Take 1 Tablet by mouth 3 times daily as needed for Anxiety. 90 Tablet 5 07/17/19 25 Active rosuvastatin (CRESTOR) 20 MG TabletIndications: Mixed hyperlipidemia Take 1 Tablet by mouth daily. 90 Tablet 3 07/18/19 25 Active albuterol 108 (90 Base) MCG/ACT Aerosol Solution INHALE 2 PUFFS INTO THE LUNGS FOUR (4) TIMES DAILY 8.5 g 11 09/18/19 25 Active QUEtiapine Fumarate (SEROquel) 50 MG Tablet TAKE 1 TABLET BY MOUTH EVERY EVENING. 90 Tablet 3 07/07/20 25 Active celecoxib (CeleBREX) 200 MG CapsuleIndications :Acute left-sided low back pain with left-sided sciatica Take 1 Capsule by mouth daily. 90 Capsule 1 11/18/19 Active Additional Information Patient not taking.Reported on 12/22/2024 nitrofurantoin, monohydrate-macroc rystal, (MACROBID) 100 MG Capsule Take 1 Capsule by mouth 2 times daily for 7 days. 14 Capsule 11/19/19 25 025 Active Problems Problem Noted Date Diagnosed Date Adenocarcinoma of middle lobe of right lung 01/05 Cancer Staging:Clinical stage from 01/29/2024: cT1, cN0, cM0 - Signed by Abelino Suazo MD on 01/29/2024 History of pulmonary aspiration 01/01/2024 Bilateral carpal tunnel syndrome 04/04/2023 04/04/2023 Gout 12/11/2022 04/04/2023 Abnormal nuclear stress test 12/05/2022 Dysphagia 10/16/2022 Ovarian mass, right 04/16/2022 Hypokalemia 11/12/2021 Elevated LFTs 11/12/2021 Chronic pain disorder 07/06/2021 COPD (chronic obstructive pulmonary disease) 07/2021 Overview (07/06/2021): Last Assessment & Plan: Uncontrolled Start symbicort Cervical radiculopathy 07/06/2021 PTSD (post-traumatic stress disorder) 07/06/2021 SCCA (squamous cell carcinoma) of skin Coronary atherosclerosis 09/14/2020 Overview (07/06/2021): Last Assessment & Plan: Continue atorvastatin, ASA and nitro as needed Bipolar disorder with depression 09/14/2020 Overview (07/06/2021): Last Assessment & Plan: PHQ Screening PHQ-2 Total Score (If total score is 3 or more points, staff should administer the PHQ-9): 2 PHQ-9 Total Score: 17 Notes intermittent SI, not active currently. Safety plan discussed. Crisisline # given. Discussed when to present to ED. Patient noted understanding and agreement with plan. Will start cymbalta, close follow up to monitor for manic symptoms, but has tolerated well previously and I feel she would greatly benefit for depressive symptoms, anxiety and chronic pain Vitamin D deficiency 02/26/2020 04/04/2023 Anxiety disorder 10/20/2018 Hyperlipidemia 10/20/2018 Primary hypertension 10/20/2018 Overview (07/06/2021): Last Assessment & Plan: Blood pressure at goal Continue lisinopril-hydrochlorothiazide Current smoker 10/20/2018 Myocardial infarction 02/03/2017 04/04/2023 Resolved Problems Problem Noted Date Diagnosed Date Resolved Date Mass of upper lobe of right lung 12/26/2023 01/29/2024 Encounters Date Type Department Care Team Description 12/22/2024 2:15 PM CDT Office Visit [facility] General Surgery [facility] [address] [phone] Negro Huerta APRN, Leandro Naqvi MD Diastasis recti (Primary Dx) Discharge Disposition: Discharged to home or Selfcare 12/21/2024 Travel 12/11/2024 2:30 PM CDT Office Visit [facility] Cardiology [facility] [address] [place] [phone] Negro Huerta APRN, CNP Walter, Meredith A, APRN, CNP Primary hypertension (Primary Dx); Mixed hyperlipidemia; Atherosclerosis of [place] coronary artery of [place] heart without angina pectoris; Panlobular emphysema (HCC) Discharge Disposition: Discharged to home or Selfcare 12/10/2024 Travel 12/07/2024 Results Follow-Up [facility] Family Medicine [facility] [address] [place] [address] Negro Huerta APRN, HOMAR XR LUMBAR SPINE MINIMUM 4 VIEWS 11/17/2024 2:30 PM CDT - 11/17/2024 11:59 PM CDT Hospital [facility] [address] [place] [phone] Negro Huerta APRN, CNP Discharge Disposition: Discharged to home or Selfcare 11/17/2024 1:45 PM CDT [facility] [place] [facility] [place] [phone] Negro Huerta APRN, CNP Primary hypertension (Primary Dx); Mixed hyperlipidemia; Acute left-sided low back pain with left-sided sciatica; Panlobular emphysema (HCC); History of lung cancer Discharge Disposition: Discharged to home or Selfcare 11/17/2024 Results [place] [facility] [place] [phone] Negro Huerta APRN, CNP URINALYSIS REFLEX IF INDICATED BY ABNORMAL RESULTS 11/16/2024 Travel 11/09/2024 [place]ill [facility] [place] [phone] Negro Huerta APRN, CNP Medication Refill 2024 Telephone [facility] Call Center [address] [place] [phone] Negro Huerta APRN, CNP Erroneous Encounter - Disregard 10/20/2024 3:17 PM CDT - 10/20/2024 11:59 PM CDT Hospital [facility] Mammography [address] [place] [phone] Negro Huerta APRN, CNP Discharge Disposition: Discharged to home or Selfcare 10/20/2024 Travel 10/20/2024 Documentation Only [facility] [place] [phone] Negro Huerta APRN, CNP 10/06/2024 Refill [facility] [place] [address] Negro Huerta APRN, HOMAR Medication Refill from Last 3 Months Immunizations Immunization Administration Dates Next Due Hepatitis B Vaccine 03/13/2000,02/18/1998 Hepatitis B Vaccine, Pediatric/adolescent 1997 Family History Medical History Relation Name Comments Heart Attack Brother 1 Kelton kelly Heart Surgery Brother 1 Kelton mendoza High Cholesterol Brother 1 Kelton kelly Hypertension Brother 1 Kelton mendoza Alcohol Abuse Brother 2 Sammy ennis Hypertension Brother 2 Sammy ennis No Known Problems Daughter 1 No Known Problems Daughter 2 Cancer Father kelton Hypertension Father kelton Stomach Cancer Father kelton Breast Cancer Maternal Aunt 1 Cancer Maternal Aunt 2 soniya Osteoporosis Maternal Aunt 2 soniya Rheumatoid Arthritis Maternal Aunt 2 soniya Heart Attack Maternal Aunt 3 Rosette Stew Recently dec eased Cancer Maternal Grandfather Lung Cancer Maternal Grandfather Arthritis Maternal Grandmother phoebe Breast Cancer Maternal Grandmother phoebe Cancer Maternal Grandmother phoebe Diabetes Maternal Grandmother phoebe Heart Attack Maternal Grandmother phoebe Hypertension Maternal Grandmother phoebe Osteoporosis Maternal Grandmother phoebe We all have degenerative disc disease and arthritis Stroke Maternal Grandmother phoebe Stroke Maternal Uncle 1 Heart Attack Maternal Uncle 2 Fitz Stew Hypertension Maternal Uncle 2 Fitz Stew Stroke Maternal Uncle 2 Fitz Stew Seizures Maternal Uncle 3 Chencho stwe Asthma Mother Cleta Cancer Mother Cleta Bone Ca Congestive Heart Failure Mother Cleta Heart Attack Mother Cleta Hypertension Mother Cleta Osteoporosis Mother Cleta Ovarian Cancer Mother Cleta Rheumatoid Arthritis Mother Cleta No Known Problems Paternal Grandfather No Known Problems Paternal Grandmother Cancer Paternal Uncle 1 Cancer Paternal Uncle 2 Chencho Ennis Sr No Known Problems Son Relation Name Status Comments Brother 1 Kelton kelly Alive Brother 2 Sammy ennis Alive Daughter 1 Alive Daughter 2 Alive Father kelton Maternal Aunt 1 Maternal Aunt 2 soniya Maternal Aunt 3 Rosette Stew Maternal Grandfather Maternal Grandmother phoebe Maternal Uncle 1 Maternal Uncle 2 Fitz Stew Maternal Uncle 3 Chencho stew Mother Cleta Paternal Grandfather Paternal Grandmother Paternal Uncle 1 Paternal Uncle 2 Chencho Ennis Sr Son Alive Social History Tobacco Use Types Packs/Day Years Used Date Smoking Tobacco: Every Day Cigarettes 0.5 40.9 Started: 01/15/1984 Smokeless Tobacco: Never Comments:Pack last from 3 da ys to 1 week Alcohol Use Standard Drinks/Week Comments Not Currently 0 (1 standard drink = 0.6 oz pure alcohol) I might drink one alcoholic beverage every 4 or 5 years [facility] Utilities Answer Date Recorded In the past 12 months has e [employer], [employer], oil, or water [employer] threatened to shut off services in your home? No 07/15/2024 Social Connection and Isolation Panel Answer Date Recorded In a typical week, how many times do you talk on the phone with family, friends, or neighbors? More than three times a week 07/15/2024 How often do you get togethe r with friends or relatives? Never 07/15/2024 How often do you attend chur ch or druze services? More than 4 times per year 07/15/2024 Do you belong to any clubs o r organizations such as christianity groups, unions, fraternal or athletic groups, or school groups? No 07/15/2024 How often do you attend meet ings of the clubs or organizations you belong to? Never 07/15/2024 Are you , , di vorced, , never , or living with a partner? 07/15/2024 AUDIT-C Answer Date Recorded Q1: How often do you have a drink containing alcohol? Never 07/15/2024 Q2: How many drinks containi ng alcohol do you have on a typical day when you are drinking? Patient does not drink Q3: How often do you have si x or more drinks on one occasion? Never 07/15/2024 Overall Financial Resource Strain (CARDIA) Answe r Date Recorded How hard is it for you to pa y for the very basics like food, housing, medical care, and heating? Somewhat hard 07/15/2024 PHQ-2 Answer Date Recorded Total Score - Questions 1-9 9 11/2023 [facility] Occupat ional Health - Occupational Stress Questionnaire Answer Date Recorded Do you feel stress - tense, restless, nervous, or anxious, or unable to sleep at night because your mind is troubled all the time - these days? Very much 07/15/2024 Exercise Vital Sign Answer Date Recorde d On average, how many days pe r week do you engage in moderate to strenuous exercise (like a brisk walk)? Patient declined On average, how many minutes do you engage in exercise at this level? Patient declined 07/15/2024 Hunger Vital Sign Answer Date Recorded Within the past 12 months, y ou worried that your food would run out before you got the money to buy more. Sometimes true Within the past 12 months, t he food you bought just didn't last and you didn't have money to get more. Never true 04/2025 PRAPARE - Transportation Answer Date Re corded In the past 12 months, has l ack of transportation kept you from medical appointments or from getting medications? Yes 07/04 In the past 12 months, has l ack of transportation kept you from meetings, work, or from getting things needed for daily living? Yes 07/15/2024 Housing Stability Vital Sign Answer Juan e [...] place to sleep or slept in a prison (including now)? No 06/12/2023 Housing Stability Vital Sign Answer Juan e Recorded In the last 12 months, was t here a time when you were not able to pay the mortgage or rent on time? No 07/15/2024 In the past 12 months, how m any times have you moved where you were living? 2 07/15/2024 At any time in the past 12 m [facility], were you homeless or living in a prison (including now)? Yes 07/15/2024 Education Answer Date Recorded What is the highest level of school you have completed or the highest degree you have received? Associate degree: occupational, technical, or vocational program 09/21/2022 Sexually Active Control Partners Comments Not Currently Surgical Male Comments No Sex and Gender Information Value Date Recorded Sex Assigned at Female 11/15/2023 3:17 PM CDT Legal Sex Female 2:07 PM POWER MARKETER Gender Identity Female 11/15/2023 3:17 PM CDT Sexual Orientation Straight 11/15/2023 3: 17 PM CDT Last Filed Vital Signs Vital Sign Reading Time Taken Comments Blood Pressure 134/76 12/22/2024 1:34 PM CDT Pulse 100 12/22/2024 1:34 PM CDT Temperature 35.7 C (96.2 F) 12/22/2024 1:34 PM CDT Respiratory Rate 16 12/11/2024 2:28 PM CDT Oxygen Saturation 96% 12/22/2024 1:34 PM CDT Inhaled Oxygen Concentration - - Weight 106.6 kg (235 lb) 12/22/2024 1:34 PM CDT Height 157.5 cm (5' 2) 12/22/2024 1:34 PM CDT Body Mass Index 42.98 12/22/2024 1:34 PM CDT Plan of Treatment Upcoming Encounters Date Type Department Care Team (Late st Contact Info) Description 03/23/2025 1:30 PM POWER MARKETER Office Visit [facility] - [facility] - [place] [address] [place] [phone] Negro Huerta, LINOLEUM LAYER HELPER, MONUMENT STONECUTTER #2 [facility] [address] [place] [address] 04/16/2025 1:00 PM POWER MARKETER Office Visit [facility] Medical [facility] - Cardiology - [place] [address] [place] [phone] Aga Garay, LINOLEUM LAYER HELPER, MONUMENT STONECUTTER 2 [facility] [address] [place] [address] 07/20/2025 1:00 PM CDT Office Visit [facility] UR[facility] [address] [place] [phone] Amado Early, LINOLEUM LAYER HELPER, MONUMENT STONECUTTER [address] [place] [address] Health Maintenance Due Date Last Done Comments TdaP Immunization 1970 SARS-COV-2 Immunization (#1) 11/06/1975 Zoster Immunization (1 of 2) 1989 Hepatitis B Immunization (3 of 3 - 19+ 3-dose series) 05/08/2000 03/13/2000, 02/18/1998, 01/20/1998 Colonoscopy 11/06/2015 Immunochemical Fecal Occult Blood 11/06/2015 Pap Smear 02/15/2024 02/14/2021, 10/2020, 02/05/2020, Additional history exists Influenza Immunization (#1) 2025 Cologuard 10/10/2025 10/10/2022 Colorectal Cancer Screening 10/10/2025 Mammogram 10/20/2025 10/20/2024, 041 09/2023, 06/29/2022, Additional history exists Cervical Cancer Screening (CCS) 02/14/2026 HPV/Cotest 02/14/2026 02/14/2021, 10/2020, 02/05/2020 Respiratory Syncytial Virus (RSV) Immunization (Adult) (1 - 1-dose 75+ series) 2045 Hepatitis C Virus (HCV) Screening Discontinued Human Papillomavirus (HPV) Immunization Aged Out No longer eligible based on patient's age to complete this topic Meningococcal Immunization (ACWY) Aged Out No longer eligible based on patient's age to complete this topic Pneumococcal Immunization (50+ years) Discontinued Rotavirus Immunization Aged Out No lo nger eligible based on patient's age to complete this topic Procedures Procedure Name Priority Date/Time Associated Diagnosis Comments EKG 12 LEAD Routine 12/11/2024 1:34 PM CDT Primary hypertension Atherosclerosis of [place] coronary artery of [place] heart without angina pectoris XR LUMBAR SPINE MINIMUM 4 VIEWS Routine 11/17/2024 3:00 PM CDT Acute left-sided low back pain with left-sided sciatica History of lung cancer HEPATIC FUNCTION PANEL Routine 11/17/2024 2:19 PM CDT Mixed hyperlipidemia LIPID PANEL Routine 11/17/2024 2:19 PM CDT Mixed hyperlipidemia URINALYSIS REFLEX IF INDICATED BY ABNORMAL RESULTS Routine 11/17/2024 2:19 PM CDT UTI symptoms CULTURE, URINE Routine 11/17/2024 2:19 PM CDT UTI symptoms AYO SCREENING BILATERAL DIGITAL W CAD W BRANDEN Routine 10/20/2024 4:00 PM CDT Encounter for screening mammogram for malignant neoplasm of breast COLOGUARD Routine 10/10/2022 12:45 PM CDT Screening for colon cancer HUMAN PAPILLOMA VIRUS (HPV) 02/14/2021 12:00 AM CDT PATHOLOGY CYTOLOGY SKEIN WINDING OPERATOR 02/14/2021 12:00 AM CDT from Last 3 Months or Most Recently Relevant to Health Maintenance Results * EKG 12 LEAD (12/11/2024 1:34 PM CDT) Ventricular Rate 89 BPM EXTERNAL EKG Atrial Rate 89 BPM EXTERNAL EKG P-R Interval 174 ms EXTERNAL EKG QRS Duration 104 ms EXTERNAL EKG Q-T Duration 366 ms EXTERNAL EKG QTC CALCULATION 445 ms EXTERNAL EKG P Hartman 75 degrees EXTERNAL EKG R Hartman 19 degrees EXTERNAL EKG T Hartman 62 degrees EXTERNAL EKG 12/11/2024 1:34 PM CDT Impressions EXTERNAL EKG - 12/15/2024 9:16 AM CDT Sinus rhythm with occasional premature ventricular complexes Inferior infarct , age undetermined Abnormal ECG ~ Confirmed by Binh Sandra ([id number]) on 12/15/2024 9:16:13 AM Narrative Procedure Note Binh Sandra MD - 12/15/2024 IMPRESSION: Sinus rhythm with occasional premature ventricular complexes Inferior infarct , age undetermined Abnormal ECG ~ Confirmed by Binh Sandra ([id number]) on 12/15/2024 9:16:13 AM us Aga Garay LINOLEUM LAYER HELPER, MONUMENT STONECUTTER IMG ECG ORDERABLES F inal Result EXTERNAL EKG * XR LUMBAR SPINE MINIMUM 4 VIEWS (11/17/2024 3:00 PM CDT) Anatomical Region Laterality Modality Spine, L-spine N/A Digital Radiogra phy 12/07/2024 9:19 AM CDT Impressions 12/07/2024 9:22 AM CDT IMPRESSION: 1. No gross acute compression fracture in the lumbar spine. 2. Vtho-du-iyptykps lumbar disc degeneration and more advanced facet arthropathy. 3. Further evaluation with MRI as clinically indicated. Narrative 12/07/2024 9:22 AM CDT EXAM DESCRIPTION: XR LUMBAR SPINE MINIMUM 4 VIEWS REASON FOR STUDY: Chronic lower back pain x 30 years to the left side. Increased low back pain x 1-1.5 months after a fall. Denies injury. Pain radiates down the left posterior leg. No surgery. H/o DDD, arthritis TECHNIQUE: Frontal, lateral, bilateral oblique and cone-down radiographic view(s) of the lumbar spine. COMPARISON: Lumbar spine radiographs dated 11/29/2019. Lumbar spine MRI dated 03/27/2022. Relevant portions of the CT urogram dated 09/27/2023. FINDINGS: The evaluation is limited by patient's body habitus and overlapping bowel debris. The lumbar vertebral body heights are grossly maintained. Jrjn-ge-qkejfilw intervertebral disc height loss with endplate degenerative changes and marginal spur formation as seen previously. More advanced mid to lower lumbar predominant facet arthropathy. Moderate to large amount of stool projects over the imaged right hemiabdomen. Sacrum and coccyx are not adequately visualized. THIS IS AN ELECTRONICALLY VERIFIED FINAL REPORT 12/07/2024 9:19 AM - Electronically signed by Hiren Flower D.O. AP: AP Report ID: [id number] Reading Location: [id number] Procedure Note Hiren Flower DO - 12/07/2024 EXAM DESCRIPTION: XR LUMBAR SPINE MINIMUM 4 VIEWS REASON FOR STUDY: Chronic lower back pain x 30 years to the left side. Increased low back pain x 1-1.5 months after a fall. Denies injury. Pain radiates down the left posterior leg. No surgery. H/o DDD, arthritis TECHNIQUE: Frontal, lateral, bilateral oblique and cone-down radiographic view(s) of the lumbar spine. COMPARISON: Lumbar spine radiographs dated 11/29/2019. Lumbar spine MRI dated 03/27/2022. Relevant portions of the CT urogram dated 09/27/2023. FINDINGS: The evaluation is limited by patient's body habitus and overlapping bowel debris. The lumbar vertebral body heights are grossly maintained. Stvs-hu-tmmcvvwq intervertebral disc height loss with endplate degenerative changes and marginal spur formation as seen previously. More advanced mid to lower lumbar predominant facet arthropathy. Moderate to large amount of stool projects over the imaged right hemiabdomen. Sacrum and coccyx are not adequately visualized. THIS IS AN ELECTRONICALLY VERIFIED FINAL REPORT 12/07/2024 9:19 AM - Electronically signed by Hiren Flower D.O. AP: AP Report ID: [id number] Reading Location: [place] [address] IMPRESSION: 1. No gross acute compression fracture in the lumbar spine. 2. Zogi-gl-gejjztue lumbar disc degeneration and more advanced facet arthropathy. 3. Further evaluation with MRI as clinically indicated. Negro Huerta APRN, CNP IMG DIAGNOSTIC O RDERABLES Final Result * (ABNORMAL) URINALYSIS REFLEX IF INDICATED BY ABNORMAL RESULTS (11/17/2024 2:19 PM CDT) Pathologist [facility] SPECIFIC GRAVITY 1.005 1.003 - 1.030 11/17/2024 4:33 PM CDT [facility] URINE PH 6.0 5.0 - 9.0 11/17/2024 4:33 PM CDT [facility] WBC ESTERASE 100 /uL(A) Negative 11/17/2024 4:33 PM CDT [facility] NITRITE Negative Negative 11/17/2024 4:33 PM CDT [facility] PROTEIN, RANDOM URINE 15 mg/dL(A) Negative 11/17/2024 4:33 PM CDT [facility] URINE GLUCOSE, QUAL Negative Negative 11/17/2024 4:33 PM CDT [facility] URINE KETONES Negative Negative 11/17/2024 4:33 PM CDT [facility] UROBILINOGEN Normal Normal mg/dL 11/17/2024 4:33 PM CDT [facility] URINE BLOOD 25 /uL(A) Negative jay/ul 11/17/2024 4:33 PM CDT [facility] URINALYSIS COLOR Yellow 11/18/19 4:33 PM CDT [facility] URINALYSIS CLARITY Clear 11/17/2024 4:33 PM CDT [facility] WBC (Urine) 6-10(A) Negative, 0-5 /hpf 11/17/2024 4:33 PM CDT [facility] URINE RBC'S 11-20(A) Negative, 0-2 /hpf 11/17/2024 4:33 PM CDT [facility] EPITHELIAL CELLS Small amount /lpf 2024 4:33 PM CDT [facility] BACTERIA, URINE Many(A) Negative /hpf 11/17/2024 4:33 PM CDT [facility] Urine URINE SPECIMEN OBTAINED BY CLEAN CATCH PROCEDURE / Unknown Non-Phlebotomy Collection / Unknown 11/17/2024 2:19 PM CDT 11/17/2024 3:35 PM CDT us Negro Huerta LINOLEUM LAYER HELPER, MONUMENT STONECUTTER URINE ORDERABLES Final Result [facility] [place] [address] * (ABNORMAL) LIPID PANEL (11/17/2024 2:19 PM CDT) CHOLESTEROL 144 <200 mg/dL 11/17/2024 4:25 PM CDT [facility] TRIGLYCERIDES 185(H) <150 mg/dL 11/17/2024 4:25 PM CDT [facility] HDL CHOLESTEROL 45 >40 mg/dL 4:25 PM CDT [facility] LDL 62 <130 mg/dL 11/17/2024 4:25 PM CDT [facility] VLDL 37 10 - 50 mg/dL 11/17/2024 4:25 PM CDT [facility] CHOL/HDL RATIO 3.2 0.0 - 4.4 11/17/2024 4:25 PM CDT [facility] NON-HDL CHOLESTEROL 99 <130 mg/dL 11/17/2024 4:25 PM CDT [facility] IS THE PATIENT REQUIRED TO BE FASTING? No 11/17/2024 4:25 PM CDT [facility] Blood Venipuncture / Unknown 11/17/2024 2:19 PM CDT 11/17/2024 3:36 PM CDT us Negro Huerta APRN, MONUMENT STONECUTTER CHEMISTRY ORDERA BLES Final Result [facility] [address] [place] [address] * HEPATIC FUNCTION PANEL (11/17/2024 2:19 PM CDT) T BILI 0.2 0.2 - 1.2 mg/dL 11/17/2024 4:33 PM CDT [facility] BILIRUBIN,DIRECT 0.1 0.0 - 0.5 mg/dL 11/17/2024 4:33 PM CDT [facility] ALKALINE PHOSPHATASE 76 40 - 150 U/L 11/17/2024 4:33 PM CDT [facility] SGOT (AST) 39 <43 U/L 11/17/2024 4:33 PM CDT [facility] SGPT (ALT) 32 <56 U/L 11/17/2024 4:33 PM CDT [facility] TOTAL PROTEIN 7.4 6.0 - 8.0 g/dL 11/17/2024 4:33 PM CDT [facility] ALBUMIN 4.3 3.5 - 5.0 g/dL 11/17/2024 4:33 PM CDT [facility] Blood Venipuncture / Unknown 11/17/2024 2:19 PM CDT 11/17/2024 3:36 PM CDT us Negro Charles Footeomon LINOLEUM LAYER HELPER, MONUMENT STONECUTTER CHEMISTRY ORDERA BLES Final Result [facility] [address] [place] [address] * CULTURE, URINE (11/17/2024 2:19 PM CDT) CULTURE RESULTS ESCHERICHIA COLI 11/19/2024 5:04 PM CDT [facility] Urine URINE SPECIMEN OBTAINED BY CLEAN CATCH PROCEDURE / Unknown Non-Phlebotomy Collection / Unknown 11/17/2024 2:19 PM CDT 11/17/2024 3:35 PM CDT Narrative Organism Antibiotic Method Susceptibility Escherichia coli Ampicillin [facility] IIB 4 mcg/ml: Susceptible Escherichia coli Ampicillin/sulbactam [facility] IIB <=2 mcg/ml: Susceptible Escherichia coli Cefazolin [facility] IIB <16 mcg/ml: Susceptible Escherichia coli Cefepime [facility] II[facility] <=0.12 mcg/ml: Susceptible Escherichia coli Ceftriaxone [facility] IIB <=0.25 mcg/ml: Susceptible Escherichia coli Gentamicin [facility] II[facility] <=1 mcg/ml: Susceptible Escherichia coli Levofloxacin [facility] IIB <=0.12 mcg/ml: Susceptible Escherichia coli Meropenem [facility] IIB <=0.25 mcg/ml: Susceptible Escherichia coli Nitrofurantoin [facility] IIB 32 mcg/ml: Susceptible Escherichia coli Piperacillin/Tazobactam [facility] II B <=4 mcg/ml: Susceptible Escherichia coli Trimeth/Sulfamethoxazole [facility] I IB <=20 mcg/ml: Susceptible us Negro Huerta APRN, MONUMENT STONECUTTER MICROBIOLOGY - G ENERAL ORDERABLES Final Result [facility] [address] [place] [address], [place] * AYO SCREENING BILATERAL DIGITAL W CAD W BRANDEN (10/20/2024 4:00 PM CDT) Anatomical Region Laterality Modality breast Bilateral Mammography 10/20/2024 3:51 PM CDT Narrative 10/21/2024 11:48 AM CDT - AYO SCREENING BILATERAL DIGITAL W CAD W BRANDEN BILATERAL DIGITAL SCREENING MAMMOGRAM 3D/2D WITH CAD WITH MEDIOLATERAL OBLIQUE CRANIOCAUDAL: 10/20/2024 The study was acquired using digital technology and interpreted from soft copy. Current study was also evaluated with StarvineD version 7.2. 2D digital mammographic views, as well as 3D digital tomosynthesis were performed in the CC and MLO projections. CLINICAL: Routine screening. Patient has no complaints. She reports a 20 pound weight decrease. Personal history of skin cancer, and lung cancer. Mother with premenopausal breast cancer. Maternal aunt and paternal grandmother had breast cancer. COMPARISONS: Comparison is made to exams dated: 08/19/2023, 06/29/2022 [facility], and 03/22/2021 [facility]. BREAST TISSUE:There are scattered areas of fibroglandular density. FINDINGS: No significant masses, calcifications, or other findings are seen in either breast. There has been no significant interval change. IMPRESSION: NEGATIVE There is no mammographic evidence of malignancy. A 1 year screening mammogram is recommended. A letter will be sent to the patient with these results. The patient will be entered into a reminder system with a target due date of 1 year for her next screening exam. Electronically signed by: Ghazala jaimes/tiffanie:10/20/2024 18:12:34 Weatherization Administrator(s): RT So(R)(M), [facility] letter sent: Normal Exam Reading location: [facility] Mammogram BI-RADS: Category 1: Negative Procedure Note Ghazala Wilson MD - 10/21/2024 - AYO SCREENING BILATERAL DIGITAL W CAD W BRANDEN BILATERAL DIGITAL SCREENING MAMMOGRAM 3D/2D WITH CAD WITH MEDIOLATERAL OBLIQUE CRANIOCAUDAL: 10/20/2024 The study was acquired using digital technology and interpreted from soft copy. Current study was also evaluated with ICAD version 7.2. 2D digital mammographic views, as well as 3D digital tomosynthesis were performed in the CC and MLO projections. CLINICAL: Routine screening. Patient has no complaints. She reports a 20 pound weight decrease. Personal history of skin cancer, and lung cancer. Mother with premenopausal breast cancer. Maternal aunt and paternal grandmother had breast cancer. COMPARISONS: Comparison is made to exams dated: 08/19/2023, 06/29/2022 [facility], and 03/22/2021 [facility]. BREAST TISSUE:There are scattered areas of fibroglandular density. FINDINGS: No significant masses, calcifications, or other findings are seen in either breast. There has been no significant interval change. IMPRESSION: NEGATIVE There is no mammographic evidence of malignancy. A 1 year screening mammogram is recommended. A letter will be sent to the patient with these results. The patient will be entered into a reminder system with a target due date of 1 year for her next screening exam. Electronically signed by: Ghazala jaimes/tiffanie:10/20/2024 18:12:34 Weatherization Administrator(s): RT So(R)(M), [facility] letter sent: Normal Exam Reading location: [facility] Mammogram BI-RADS: Category 1: Negative us Negro Huerta APRN, MONUMENT STONECUTTER IMG MAMMO ORDERA BLES Final Result * COLOGUARD (10/10/2022 12:45 PM CDT) Cologuard Negative Negative [facility] Comment: NEGATIVE TEST RESULT. A negative Cologuard result indicates a low likelihood that a colorectal cancer (CRC) or advanced adenoma (adenomatous polyps with more advanced pre-malignant features) is present. The chance that a person with a negative Cologuard test has a colorectal cancer is less than 1 in 1500 (negative predictive value >99.9%) or has an advanced adenoma is less than 5.3% (negative predictive value 94.7%). These data are based on a prospective cross-sectional study of 10,000 individuals at average risk for colorectal cancer who were screened with both Cologuard and colonoscopy. (Faye Nichols et al, N Engl J Med 2014;370(14):1743-8652) The normal value (reference range) for this assay is negative. COLOGUARD RE-SCREENING RECOMMENDATION: Periodic colorectal cancer screening is an important part of preventive healthcare for asymptomatic individuals at average risk for colorectal cancer. Following a negative Cologuard result, the [place] [employer] Society and U.S. Multi-Society Task Force screening guidelines recommend a Cologuard re-screening interval of 3 years. References: [place] [employer] Guideline for Colorectal Cancer Screening: https://www.cancer.org/cancer/ttlgy-otxuyp-ouivon/lxkjgrssw-qmphwcntj-lxvfdpb/ acs-recommendations.html.; Jerry BARNHART, Alyx PERLA, Brittany AguirreK, Colorectal Cancer Screening: Recommendations for Physicians and Patients from the U.S. Multi-Society Task Force on Colorectal Cancer Screening , Am J Gastroenterology 2017; 112:7554-5100. TEST DESCRIPTION: Composite algorithmic analysis of stool DNA-biomarkers with hemoglobin immunoassay. Quantitative values of individual biomarkers are not reportable and are not associated with individual biomarker result reference ranges. Cologuard is intended for colorectal cancer screening of adults of either sex, 45 years or older, who are at average-risk for colorectal cancer (CRC). Cologuard has been approved for use by the U.S. FDA. The performance of Cologuard was established in a cross sectional study of average-risk adults aged 50-84. Cologuard performance in patients ages 45 to 49 years was estimated by sub-group analysis of near-age groups. Colonoscopies performed for a positive result may find as the most clinically significant lesion: colorectal cancer [4.0%], advanced adenoma (including sessile serrated polyps greater than or equal to 1cm diameter) [20%] or non- advanced adenoma [31%]; or no colorectal neoplasia [45%]. These estimates are derived from a prospective cross-sectional screening study of 10,000 individuals at average risk for colorectal cancer who were screened with both Cologuard and colonoscopy. (Faye Nichols et al, N Engl J Med 2014;370(14):4241-6279.) Cologuard may produce a false negative or false positive result (no colorectal cancer or precancerous polyp present at colonoscopy follow up). A negative Cologuard test result does not guarantee the absence of CRC or advanced adenoma (pre-cancer). The current Cologuard screening interval is every 3 years. ([place] [employer] Society and U.S. Multi-Society Task Force). Cologuard performance data in a 10,000 patient pivotal study using colonoscopy as the reference method can be accessed at the following location: www.Qianmi.Rockpack/results. Additional description of the Cologuard test process, warnings and precautions can be found at www.cologuard.com. Stool 10/10/2022 12:4 5 PM CDT 10/12/2022 4:57 PM CDT us Negro Huerta APRN, MONUMENT STONECUTTER BODY FLUIDS & ST OOLS ORDERABLES Final Result Performing Organization Address City/[facility]/ZIP Co de Phone Number [facility] [employer] [facility], [facility] [address] [place] [address], [facility] [address] [address] * PATHOLOGY CYTOLOGY SKEIN WINDING OPERATOR (02/14/2021 12:00 AM CDT) 02/14/2021 us Not On File Provider PATHOLOGY/CYTOLOGY ORDERABL ES Final Result SCAN * HUMAN PAPILLOMA VIRUS (HPV) (02/14/2021 12:00 AM CDT) 02/14/2021 us Not On File Provider LAB SEND OUTS Final Resul t SCAN from Last 3 Months or Most Recently Relevant to Health Maintenance Insurance MEDICAID [employer] Care Teams Vp Relationship Specialty Start Date End Date Negro Huerta APRN, MONUMENT STONECUTTER #2 [facility] [address] [place] [address] PCP - General Advanced Practice Nurse 07/06/21 Denae Gonzalez DPM #2 [facility] [address] [place] [address] Consulting Physician Podiatry 04/24/22 Amado Early APRN, MONUMENT STONECUTTER #2 [place] [address] Nurse Practitioner Advanced Practice Nurse 09/02/23 Nohelia Haskins MD #2 [facility] [address] [place] [address] Consulting Physician Urology 10/11/23 Aga Garay APRN, MONUMENT STONECUTTER 2 [facility] [address] [place] [address] Nurse Practitioner Cardiology 12/14/24 Leandro Jacques MD #2 [place] [address] Consulting Physician Colon and Rectal Surgery 12/15/24
--- OUTSIDE RECORDS SUMMARY | 2024-12-24 17:09 | XMS_ITS | Encounter Summary ---
Author Organization [facility] Address [address] [place] [address] Phone Care Team Providers Care Manager Bank Name Role Phone Negro Huerta APRN, NUTRITION AND DIETETICS INSTRUCTOR Primary Care Pr ovider Denae Gonzalez DPM Unavailable [phone] Cherie Vizcarra VISUAL EFFECTS EDITOR Unavailable Unavailab Amado Singer COMMERCIAL TECHNICIAN, NUTRITION AND DIETETICS INSTRUCTOR Unavailable [phone] Nohelia Haskins MD Unavailable [phone] Aga Garay APRN, NUTRITION AND DIETETICS INSTRUCTOR Unavailable + [phone] Leandro Jacques MD Unavailable Reason for Visit * Reason Comments Medication Refill Encounter Details Date Type Department Care Team (Late st Contact Info) Description 05/08/2022 Refill [facility] - [place] [address] [place] [address] Negro Huerta APRN, NUTRITION AND DIETETICS INSTRUCTOR #[address] [address] Medication Refill Social History Tobacco Use Types [...] PM CDT Legal Sex Female 2:07 PM WELD FITTER Gender Identity Female 11/15/2023 3:17 PM CDT Sexual Orientation Straight 11/15/2023 3: 17 PM CDT COVID-19 Exposure Response Date Recorded In the last 10 days, have yo u been in contact with someone who was confirmed or suspected to have Coronavirus/COVID-19? No / Unsure 05/08/2022 10:18 AM WELD FITTER documented as of this encounter Miscellaneous Notes * Telephone Encounter - Ira Thompson RN - 05/08/2022 4:43 PM CST PDMP 04/11/22 Medication failed the protocol, provider to review and approve the medication order if appropriate. Requested Prescriptions Pending Prescriptions Disp Refills ALPRAZolam (XANAX) 1 MG Tablet [Pharmacy Med Name: ALPRAZOLAM 1MG TABLET] 90 Tablet 0 Sig: TAKE ONE (1) TABLET BY MOUTH THREE (3) TIMES DAILY NEEDED FOR ANXIETY Not Delegated - Benzodiazepines Protocol Failed - 05/08/2022 8:01 AM Failed - This refill cannot be delegated Passed - Visit with relevant provider in past 12 months or upcoming 90 days Recent Visits Date Type Provider Dept 02/26/22 Office Visit Negro Huerta APRN, CNP [facility] 11/13/21 Office Visit Negro Huerta APRN, CNP [facility] 08/28/21 Office Visit Negro Huerta APRN, CNP [facility] 08/04/21 Office Visit Negro Huerta APRN, CNP [facility] 07/06/21 Office Visit Negro Huerta APRN, [facility] Showing recent visits within past 365 days and meeting all other requirements Future Appointments Date Type Provider Dept 05/31/22 Appointment Negro Huerta APRN, [facility] Showing future appointments within next 90 days and meeting all other requirements FITTER documented in this encounter Plan of Treatment Upcoming Encounters Date Type Department Care Team (Late st Contact Info) Description 03/23/2025 1:30 PM WELD FITTER Office Visit [facility] - Family Medicine - [place] [address] [place] [address] Negro Huerta APRN, NUTRITION AND DIETETICS INSTRUCTOR #[address] [place] [address] 04/16/2025 1:00 PM WELD FITTER Office Visit [facility] - Cardiology - [place] [address] [place] [address] Aga Garay APRN, NUTRITION AND DIETETICS INSTRUCTOR [address] [address] 07/20/2025 1:00 PM CDT Office Visit [facility] #2 [place] [id number] Amado Early APRN, NUTRITION AND DIETETICS INSTRUCTOR #2 [facility] [place] [address] documented as of this encounter Visit Diagnoses Diagnosis Anxiety Anxiety state, unspecified documented in this encounter Additional Health Concerns Assessment Noted Time PHQ-9 Depression Total Score: 0 07/07/19 22 10:00 AM WELD FITTER documented as of this encounter Care Teams Manager Bank Relationship Specialty Start Date End Date Negro Huerta APRN, NUTRITION AND DIETETICS INSTRUCTOR #[address] [place] [address] PCP - General Advanced Practice Nurse 07/06/21 Denae Gonzalez DPM #[address] [place] [address] Consulting Physician Podiatry 04/24/22 Cherie Vizcarra, [place] Injection Operator Target Worker 06/03/23 06/12/23 Amado Early APRN, NUTRITION AND DIETETICS INSTRUCTOR #[address] [place] [address] Nurse Practitioner Advanced Practice Nurse 09/02/23 Nohelia Haskins MD #2 [facility] [address] [place] [address] Consulting Physician Urology 10/11/23 Aga Garay APRN, NUTRITION AND DIETETICS INSTRUCTOR 2 [facility] [address] [place] [address] Nurse Practitioner Cardiology 12/14/24 Leandro Jacques MD #2 [facility] [address] [place] [address] Consulting Physician Colon and Rectal Surgery 12/15/24 documented as of this encounter
--- OUTSIDE RECORDS SUMMARY | 2024-12-24 17:09 | XMS_ITS | Encounter Summary ---
Author Organization [facility] Address [address] [place] [address] Phone Care Team Providers Care Insurance Claims Analyst Name Role Phone Negro Huerta APRN, CRACKING MACHINE OPERATOR Primary Care Pr ovider Denae Gonzalez DPM Unavailable [phone] Cherie Vizcarra SEASONAL CLERK Unavailable Unavailab Amado Singer SILVER CLEANER, CRACKING MACHINE OPERATOR Unavailable [phone] Nohelia Haskins MD Unavailable [phone] Aga Garay APRN, CRACKING MACHINE OPERATOR Unavailable + [phone] Leandro Jacques MD Unavailable Reason for Visit * Reason Comments Medication Refill Encounter Details Date Type Department Care Team (Late st Contact Info) Description 02/06/2022 Refill [facility] - [place] [address] [place] [address] Negro Huerta APRN, CRACKING MACHINE OPERATOR #[address] [address] Medication Refill Social History Tobacco Use Types [...] PM CDT Legal Sex Female 2:07 PM CLAIMS PROCESSOR Gender Identity Female 11/15/2023 3:17 PM CDT Sexual Orientation Straight 11/15/2023 3: 17 PM CDT COVID-19 Exposure Response Date Recorded In the last 10 days, have yo u been in contact with someone who was confirmed or suspected to have Coronavirus/COVID-19? Yes 01/15/2022 12:27 PM CDT documented as of this encounter Miscellaneous Notes * Telephone Encounter - Ira Thompson RN - 02/06/2022 3:45 PM CDT PDMP 01/10/22 Medication failed the protocol, provider to review and approve the medication order if appropriate. Requested Prescriptions Pending Prescriptions Disp Refills ALPRAZolam (XANAX) 1 MG Tablet [Pharmacy Med Name: ALPRAZOLAM 1MG TABLET] 90 Tablet 0 Sig: TAKE ONE (1) TABLET BY MOUTH THREE (3) TIMES DAILY NEEDED FOR ANXIETY Not Delegated - Benzodiazepines Protocol Failed - 02/06/2022 3:32 PM Failed - This refill cannot be delegated Passed - Visit with relevant provider in past 12 months or upcoming 90 days Recent Visits Date Type Provider Dept 11/13/21 Office Visit Negro Huerta APRN, CNP [facility] 08/28/21 Office Visit Negro Huerta APRN, CNP [facility] 08/04/21 Office Visit Negro Huerta APRN, CNP [facility] 07/06/21 Office Visit Negro Hureta APRN, [facility] Showing recent visits within past 365 days and meeting all other requirements Future Appointments Date Type Provider Dept 02/19/22 Appointment Negro Huerta APRN, [facility] Showing future appointments within next 90 days and meeting all other requirements documented in this encounter Plan of Treatment Upcoming Encounters Date Type Department Care Team (Late st Contact Info) Description 03/23/2025 1:30 PM CLAIMS PROCESSOR Office Visit [facility] - Family Medicine - [place] #[address] [place] [address] Negro Huerta APRN, CRACKING MACHINE OPERATOR #2 [facility] [address] [place] [address] 04/16/2025 1:00 PM CLAIMS PROCESSOR Office Visit [facility] - Cardiology - [place] #[address] [place] [address] Aga Garay APRN, CRACKING MACHINE OPERATOR 2 [facility] [address] [place] [address] 07/20/2025 1:[address]T Office Visit [facility] #2 [place] [address] Amado Early APRN, CRACKING MACHINE OPERATOR #[address] [place] [address] documented as of this encounter Visit Diagnoses Diagnosis Anxiety Anxiety state, unspecified documented in this encounter Additional Health Concerns Assessment Noted Time PHQ-9 Depression Total Score: 0 07/07/19 22 10:00 AM CLAIMS PROCESSOR documented as of this encounter Care Teams Insurance Claims Analyst Relationship Specialty Start Date End Date Negro Huerta APRN, CRACKING MACHINE OPERATOR #2 [facility] [address] [place] [address] PCP - General Advanced Practice Nurse 07/06/21 Denae Gonzalez DPM #2 [facility] [address] [place] [address] Consulting Physician Podiatry 04/24/22 Cherie Vizcarra, SEASONAL CLERK [place] Element Setter Family Preservation Caseworker 06/03/23 06/12/23 Amado Early APRN, CRACKING MACHINE OPERATOR #[address] [place] [address] Nurse Practitioner Advanced Practice Nurse 09/02/23 Nohelia Haskins MD #2 [facility] [address] [place] [address] Consulting Physician Urology 10/11/23 Aga Garay APRN, CRACKING MACHINE OPERATOR 2 [facility] [address] [place] [address] Nurse Practitioner Cardiology 12/14/24 Leandro Jacques MD #2 [facility] [address] [place] [address] Consulting Physician Colon and Rectal Surgery 12/15/24 documented as of this encounter
--- OUTSIDE RECORDS SUMMARY | 2024-12-24 17:09 | XMS_ITS | Encounter Summary ---
Author Organization [facility] Address [address] [place] [address] Phone Care Team Providers Care Forest Examiner Name Role Phone Negro Huerta APRN, WARHEAD MAINTENANCE SPECIALIST Primary Care Pr ovider Denae Gonzalez DPM Unavailable [phone] Amado Early MULTIPLEX OPERATOR, WARHEAD MAINTENANCE SPECIALIST Unavailable [phone] Nohelia Haskins MD Unavailable [phone] Aga Garay APRN, WARHEAD MAINTENANCE SPECIALIST Unavailable + [phone] Leandro Jacques MD Unavailable Reason for Visit * Reason Onset Date Comments Aspiration 04/11/2024 Encounter Details Date Type Department Care Team (Late st Contact Info) Description 04/11/2024 Nurse Triage [facility] - Family Medicine - [place] [address] [place] [address] Negro Huerta APRN, WARHEAD MAINTENANCE SPECIALIST #[address] [address] Aspiration Social History Tobacco Use Types Packs/Day Years Used Date Smoking Tobacco: Every Day Cigarettes Smokeless Tobacco: Never Alcohol Use Standard Drinks/Week Comments Not Currently 0 (1 standard drink = 0.6 oz pur e alcohol) [facility] Utilities Answer Date Recorded In the [...] often do you attend chur ch or voodoo services? Never 06/12/2023 Do you belong to any clubs o r organizations such as mu-ism groups, unions, fraternal or athletic groups, or [...] Total Score - Questions 1-9 9 11/2023 [facility] of Occupat ional Health - Occupational Stress [...] place to sleep or slept in a detention (including now)? No 06/12/2023 Education Answer Date Recorded What is the highest level of school you have completed or the highest degree you have received? Associate degree: occupational, technical, or vocational program 09/21/2022 Comments No Sex and Gender Information Value Date Recorded Sex Assigned at Female 11/15/2023 3:17 PM CDT Legal Sex Female 2:07 PM PRESCRIPTION EYEGLASS MAKER Gender Identity Female 11/15/2023 3:17 PM CDT Sexual Orientation Straight 11/15/2023 3: 17 PM CDT documented as of this encounter Miscellaneous Notes * Telephone Encounter - Tia Flores RN - 04/13/2024 9:46 AM CST SITUATION: [facility]ated on broccoli 2 days ago and has been having difficulty swallowing solid foods. BACKGROUND: Pt states her difficulties with swallowing began over a year ago when she had neck surgery. States that it has recently gotten worse. Reports coughing yesterday but has not had coughing today. Pt reports her back is sore from coughing yesterday. Reports that it feels like food gets stuck in her throat when she eats. She said she sometimes aspirates when she coughs. HISTORY: lung cancer, COPD ASSESSMENT & RECOMMENDATION: SEE IN OFFICE OR VIDEO VISIT TODAY: * You need to be examined today or have a video telemedicine visit. * PCP OFFICE VISIT: Let me give you an appointment. * TRIAGER OPTION - MAKE VIDEO VISIT APPOINTMENT: I am going to set up a video telemedicine visit for you. * IFNO AVAILABLE OFFICE OR VIDEO APPOINTMENTS: You need to be seen in an Urgent Care Center. Go there to day. A nearby Urgent Care Center is often a good source of care. Another choice is to go to the Emergency Department. Patient refused disposition saying she cannot come into office without 3 days notice. Patient states she is unable to go to the ED at this time as well. Patient scheduled for office visit with Joanie Rdz on 04/17/24. First positive answer recorded, all responses to prior questions were negative. If symptoms increase, change or if new symptoms develop, call your HCP or call back. Recommendations were based on caller information and is not a diagnosis. Verified and reviewed all triage information with caller. Teach-back method utilized. Reason for Disposition Symptoms of pill stuck in throat or esophagus (e.g., pain in throat or chest, FB sensation) and no relief after using Care Advice Answer Assessment - Initial Assessment Questions 1. DESCRIPTION: Tell me more about this problem. Are you having trouble swallowing liquids, solids, or both? Any trouble with swallowing saliva (spit)? solids 2. SEVERITY: How bad is the swallowing difficulty? (Scale 1-10; or mild, moderate, severe) 5 3. ONSET: When did the swallowing problems begin? Last year when I had my neck surgery 4. CAUSE: What do you think is causing the problem? (e.g., dry mouth, food or pill stuck in throat, mouth pain, sore throat, progression of disease process such as dementia or Parkinson's disease). Food gets stuck in throat, sometimes it goes down into lung when I try ot cough it our 5. CHRONIC or RECURRENT: Is this a new problem for you? If No, ask: How long have you had this problem? (e.g., days, weeks, months) Over a year 6. OTHER SYMPTOMS: Do you have any other symptoms? (e.g., chest pain, difficulty breathing, mouthsores, sore throat, swollen tongue, chest pain) Sore throat 7. : Is there any chance you are ? When was your last menstrual period? No Protocols used: Swallowing [id number]-JJ CRIPTION EYEGLASS MAKER documented in this encounter Plan of Treatment Upcoming Encounters Date Type Department Care Team (Late st Contact Info) Description 03/23/2025 1:30 PM PRESCRIPTION EYEGLASS MAKER Office Visit [facility] Medical [facility] - Family Medicine - [place] [address] [place] [address] Negro Huerta APRN, WARHEAD MAINTENANCE SPECIALIST #2 [facility] [address] [place] [address] 04/16/2025 1:00 PM PRESCRIPTION EYEGLASS MAKER Office Visit [facility] - Cardiology - [place] [address] [place] [address] Aga Garay APRN, WARHEAD MAINTENANCE SPECIALIST 2 [facility] [address] [place] [address] 07/20/2025 1:00 PM CDT Office Visit [facility] UROLOGY #2 [place] [address] Amado Early APRN, WARHEAD MAINTENANCE SPECIALIST #2 [place] [address] documented as of this encounter Visit Diagnoses Not on filedocumented in this encounter Additional Health Concerns Assessment Noted Time PHQ-9 Depression Total Score: 9 06/12/19 24 3:31 PM PRESCRIPTION EYEGLASS MAKER documented as of this encounter Care Teams Forest Examiner Relationship Specialty Start Date End Date Negro Huerta APRN, WARHEAD MAINTENANCE SPECIALIST #2 [facility] [address] [place] [address] PCP - General Advanced Practice Nurse 07/06/21 Denae Gonzalez DPM #2 [facility] [address] [place] [address] Consulting Physician Podiatry 04/24/22 Amado Early, MULTIPLEX OPERATOR, WARHEAD MAINTENANCE SPECIALIST #2 [place] [address] Nurse Practitioner Advanced Practice Nurse 09/02/23 Nohelia Haskins MD #2 [facility] [address] [place] [address] Consulting Physician Urology 10/11/23 Aga Garay MULTIPLEX OPERATOR, WARHEAD MAINTENANCE SPECIALIST 2 [facility] [address] [place] [address] Nurse Practitioner Cardiology 12/14/24 Leandro Jacques MD #2 [facility] [address] [place] [address] Consulting Physician Colon and Rectal Surgery 12/15/24 documented as of this encounter
--- OUTSIDE RECORDS SUMMARY | 2024-12-24 17:09 | XMS_ITS | Encounter Summary ---
Author Organization [facility] Address [address] [place] [address] Phone Care Team Providers Care Desk Representative Name Role Phone Negro Huetra APRN, TALENT ACQUISITION ADMINISTRATOR Primary Care Pr ovider Denae Gonzalez DPM Unavailable [phone] Cherie Vizcarra NOTE SPECIALIST Unavailable Unavailab Amado Singer PRODUCTION LINE, TALENT ACQUISITION ADMINISTRATOR Unavailable [phone] Nohelia Haskins MD Unavailable [phone] Aga Garay APRN, TALENT ACQUISITION ADMINISTRATOR Unavailable + [phone] Leandro Jacques MD Unavailable Reason for Visit * Reason Comments Medication Refill Encounter Details Date Type Department Care Team (Late st Contact Info) Description 11/08/2021 [facility]ill [facility] - [place] [address]2 [place] [address] Negro Huerta APRN, TALENT ACQUISITION ADMINISTRATOR #[address] [address] Medication Refill Social History Tobacco Use Types [...] PM CDT Legal Sex Female 2:07 PM KNIFE SHARPENER Gender Identity Female 11/15/2023 3:17 PM CDT Sexual Orientation Straight 11/15/2023 3: 17 PM CDT COVID-19 Exposure Response Date Recorded In the last 10 days, have yo u been in contact with someone who was confirmed or suspected to have Coronavirus/COVID-19? No / Unsure 11/02/2021 10:59 AM CDT documented as of this encounter Miscellaneous Notes * Telephone Encounter - Kathy Aceves RN - 11/09/2021 7:36 AM CDT Medication failed the protocol, provider to review and approve the medication order if appropriate. Requested Prescriptions Pending Prescriptions Disp Refills albuterol 108 (90 Base) MCG/ACT Aerosol Solution [Pharmacy Med Name: ALBUTEROL SULFATE HFA HFA AEROSOL SOLN] 0 Sig: INHALE 2 PUFFS BY MOUTH FOUR (4) TIMES DAILY Short Acting Inhaled Beta-Agonists Protocol Failed - 11/08/2021 1:36 PM Failed - Active on medication list Passed - Visit with relevant provider in past 12 months or upcoming 90 days Recent Visits Date Type Provider Dept 08/28/21 Office Visit Negro Huerta APRN, [facility] 08/04/21 Office Visit Negro Huerta APRN, [facility] 07/06/21 Office Visit Negro Huerta APRN, [facility] Showing recent visits within past 365 days and meeting all other requirements Future Appointments Date Type Provider Dept 11/13/21 Appointment Negro Huerta APRN, [facility] Showing future appointments within next 90 days and meeting all other requirements documented in this encounter Plan of Treatment Upcoming Encounters Date Type Department Care Team (Late st Contact Info) Description 03/23/2025 1:30 PM KNIFE SHARPENER [facility] - Family Medicine - [place] [address] [place] [address] Negro Huerta, PRODUCTION LINE, TALENT ACQUISITION ADMINISTRATOR #2 [facility] [address] [place] [address] 04/16/2025 1:00 PM KNIFE SHARPENER Office Visit [facility] - [place] #2 [facility] [place] [address] Aga Garay PRODUCTION LINE, TALENT ACQUISITION ADMINISTRATOR 2 [facility] [address] [place] [address] 07/20/2025 1:00 PM CDT Office Visit [facility] UROLOGY #2 [place] [address] Amado Early PRODUCTION LINE, TALENT ACQUISITION ADMINISTRATOR #[address] [place] [address] documented as of this encounter Visit Diagnoses Not on filedocumented in this encounter Additional Health Concerns Infection Onset Date Last Indicated Resolved Time COVID - 19 Confirmed 01/15/2022 01/15/2022 022 12:16 AM CDT Assessment Noted Time PHQ-9 Depression Total Score: 0 07/07/19 22 10:00 AM KNIFE SHARPENER documented as of this encounter Care Teams Desk Representative Relationship Specialty Start Date End Date Negro Huerta, PRODUCTION LINE, TALENT ACQUISITION ADMINISTRATOR #[address] [address] PCP - General Advanced Practice Nurse 07/06/21 Denae Gonzalez DPM #2 [facility] [address] [place] [address] Consulting Physician Podiatry 04/24/22 Cherie Vizcarra, [facility] Renewals Manager Unix Consultant 06/03/23 06/12/23 Amado Early APRN, TALENT ACQUISITION ADMINISTRATOR #[address] [place] [address] Nurse Practitioner Advanced Practice Nurse 09/02/23 Nohelia Haskins MD #2 [facility] [address] [place] [address] Consulting Physician Urology 10/11/23 Aga Garay APRN, TALENT ACQUISITION ADMINISTRATOR 2 [facility] [address] [place] [address] Nurse Practitioner Cardiology 12/14/24 Leandro Jacques MD #2 [facility] [address] [place] [address] Consulting Physician Colon and Rectal Surgery 12/15/24 documented as of this encounter
--- OUTSIDE RECORDS SUMMARY | 2024-12-24 17:09 | XMS_ITS | Encounter Summary ---
Author Organization [facility] Address [address] [place] [address] Phone Care Team Providers Care Net Application Architect Name Role Phone Negro Huerta APRN, PLATE TAKE OUT WORKER Primary Care Pr ovider Denae Gonzalez DPM Unavailable [phone] Cherie Vizcarra WESTERN TACK ASSEMBLY LINE WORKER Unavailable Unavailab Amado Singer APRN, PLATE TAKE OUT WORKER Unavailable Nohelia Haskins MD Unavailable [phone] Aga Garay APRN, PLATE TAKE OUT WORKER Unavailable [phone] Leandro Jacques MD Unavailable Reason for Visit * Reason Onset Date Comments Aspiration 09/19/2022 Encounter Details Date Type Department Care Team (Late st Contact Info) Description 09/19/2022 Nurse Triage [facility] Medical [facility] - Family [facility] - [place] #2 [place] [address] Negro Huerta APRN, PLATE TAKE OUT WORKER #[address] [address] Aspiration Social History Tobacco Use Types Packs/Day [...] PM CDT Legal Sex Female 2:07 PM KILN REPAIRER Gender Identity Female 11/15/2023 3:17 PM CDT Sexual Orientation Straight 11/15/2023 3: 17 PM CDT COVID-19 Exposure Response Date Recorded In the last 10 days, have yo u been in contact with someone who was confirmed or suspected to have Coronavirus/COVID-19? No / Unsure 08/24/2022 1:36 PM CDT documented as of this encounter Miscellaneous Notes * Telephone Encounter - Negro Huerta APRN, CNP - 09/20/2022 9:15 AM CDT Recommend ER for evaluation and treatment. * Telephone Encounter - Florence Gaona RN - 09/20/2022 8:54 AM CDT Reason for Disposition ??? [1] Recovered from choking AND [2] may have swallowed a FB (foreign body) ??? Patient sounds very sick or weak to the triager Answer Assessment - Initial Assessment Questions 1. SUBSTANCE: What did the patient choke on? Soda and pills 2. SIZE: If the object was solid, ask: How big was it? no 3. ONSET: When did it begin? (In minutes) 10 mins ago 4. RESPIRATORY DISTRESS: Describe the patient's breathing., Is he/she able to talk? She can talk but sounds winded 5. : Is there any chance you are ? When was your last menstrual period? no, [id number] Protocols used: CHOKING - INHALED FOREIGN BODY-A-AH, SWALLOWED FOREIGN BODY-A-AH * Telephone Encounter - Florence Gaona RN - 09/20/2022 8:49 AM CDT SITUATION: Patient thinks she has aspiration pneumonia. In the past few days she has coughed up a piece of corn as well as several of her pills. She denies fever. BACKGROUND: C7&T1 surgery HISTORY: C7&T1 surgery ASSESSMENT & RECOMMENDATION: First positive answer recorded, all responses to prior questions were negative. If symptoms increase, change or if new symptoms develop, call your HCP or call back. Recommendations were based on caller information and is not a diagnosis. Verified and reviewed all triage information with caller. Teach-back method utilized. * Telephone Encounter - Florence Gaona RN - 09/20/2022 8:44 AM CDTFrom: Irina Layton To: Scotty Huerta Sent: 09/19/2022 8:54 PM CDT Subject: Aspiration pneumonia I think i may have aspiration pneumonia. I have coughed up medication from my lungs. [place] like the right lung and i have coughed up liquids. I have caughed up other foods. I did have the c7 t1 surgery. And swallowing is a little more challenging my sats have been 87-94 since the right around the time of my surgery. Some pain i cant tell if its from surgery or from coughing so hard documented in this encounter Plan of Treatment Upcoming Encounters Date Type Department Care Team (Late st Contact Info) Description 03/23/2025 1:30 PM KILN REPAIRER Office Visit [facility] Medical Group - Family Medicine - [place] #2 [place] [address] Negro Huerta APRN, PLATE TAKE OUT WORKER #[address] [address] 04/16/2025 1:00 PM KILN REPAIRER Office Visit [facility] Medical Group - Cardiology - [place] #2 [place] [address] Aga Garay APRN, PLATE TAKE OUT WORKER 2 [facility] [address] [place] [address] 07/20/2025 1:00 PM CDT [facility] #[address] [place] [address] Amado Early APRN, PLATE TAKE OUT WORKER #2 [facility] [place] [address] documented as of this encounter Visit Diagnoses Not on filedocumented in this encounter Additional Health Concerns Assessment Noted Time PHQ-9 Depression Total Score: 0 07/07/19 22 10:00 AM KILN REPAIRER documented as of this encounter Care Teams Net Application Architect Relationship Specialty Start Date End Date Negro Huerta APRN, PLATE TAKE OUT WORKER #2 [facility] [address] [place] [address] PCP - General Advanced Practice Nurse 07/06/21 Denae Gonzalez DPM #2 [facility] [address] [place] [address] Consulting Physician Podiatry 04/24/22 Cherie Vizcarra LSW DC Bookmobile Clerk Physical Therapist Clinic Director 06/03/23 06/12/23 Amado Early APRN, PLATE TAKE OUT WORKER #2 [place] [address] Nurse Practitioner Advanced Practice Nurse 09/02/23 Nohelia Haskins MD #2 [facility] [address] [place] [address] Consulting Physician Urology 10/11/23 Aga Garay APRN, PLATE TAKE OUT WORKER 2 [facility] [address] [place] [address] Nurse Practitioner Cardiology 12/14/24 Leandro Jacques MD #[address] [address] Consulting Physician Colon and Rectal Surgery 12/15/24 documented as of this encounter
--- OUTSIDE RECORDS SUMMARY | 2024-12-24 17:09 | XMS_ITS | Encounter Summary ---
Author Organization [facility] Address [address] [place] [address] Phone Care Team Providers Care Lens Block Gauger Name Role Phone Negro Huerta APRN, INTERMEDIATE MANAGER Primary Care Pr ovider Denae Gonzalez DPM Unavailable [phone] Cherie Vizcarra LEATHER HEEL BREASTER Unavailable Unavailab Amado Singer WEB PRODUCTION DESIGNER, INTERMEDIATE MANAGER Unavailable [phone] Nohelia Haskins MD Unavailable [phone] Aga Garay APRN, INTERMEDIATE MANAGER Unavailable + [phone] Leandro Jacques MD Unavailable Reason for Visit * Reason Comments Medication Refill Encounter Details Date Type Department Care Team (Late st Contact Info) Description 11/03/2021 Refill [facility] - Family Medicine - [place] #2 [place] [address] Negro Huerta APRN, INTERMEDIATE MANAGER #[address] [address] Medication Refill Social History Tobacco Use Types [...] PM CDT Legal Sex Female 2:07 PM SEWER CONTRACTOR Gender Identity Female 11/15/2023 3:17 PM CDT Sexual Orientation Straight 11/15/2023 3: 17 PM CDT COVID-19 Exposure Response Date Recorded In the last 10 days, have yo u been in contact with someone who was confirmed or suspected to have Coronavirus/COVID-19? No / Unsure 11/02/2021 10:59 AM CDT documented as of this encounter Miscellaneous Notes * Telephone Encounter - Ira Thompson RN - 11/03/2021 2:33 PM CDT PDMP 10/05/21 Medication failed the protocol, provider to review and approve the medication order if appropriate. Requested Prescriptions Pending Prescriptions Disp Refills ALPRAZolam (XANAX) 1 MG Tablet [Pharmacy Med Name: ALPRAZOLAM 1MG TABLET] 90 Tablet 0 Sig: TAKE ONE (1) TABLET BY MOUTH THREE (3) TIMES DAILY NEEDED FOR ANXIETY Not Delegated - Benzodiazepines Protocol Failed - 11/03/2021 11:19 AM Failed - This refill cannot be delegated Passed - Visit with relevant provider in past 12 months or upcoming 90 days Recent Visits Date Type Provider Dept 08/28/21 Office Visit Negro Huerta APRN, CNP [facility] 08/04/21 Office Visit Negro Huerta APRN, CNP [facility] 07/06/21 Office Visit Negro Huerta APRN, CNP [facility] Showing recent visits within past 365 days and meeting all other requirements Future Appointments Date Type Provider Dept 11/09/21 Appointment Negro Huerta APRN, CNP [facility] Showing future appointments within next 90 days and meeting all other requirements documented in this encounter Plan of Treatment Upcoming Encounters Date Type Department Care Team (Late st Contact Info) Description 03/23/2025 1:30 PM SEWER CONTRACTOR Office Visit [facility] Medical [facility] - Family Medicine - [place] #2 [place] [address] Negro Huerta, WEB PRODUCTION DESIGNER, INTERMEDIATE MANAGER #2 [facility] [address] [place] [address] 04/16/2025 1:00 PM SEWER CONTRACTOR Office Visit [facility] - Cardiology - [place] #2 [facility] [place] [address] Aga Garay WEB PRODUCTION DESIGNER, INTERMEDIATE MANAGER 2 [facility] [address] [place] [address] 07/20/2025 1:00 PM CDT Office Visit [facility] [place] #2 [facility] [place] [address] Amado Early APRN, INTERMEDIATE MANAGER #2 [place] [address] documented as of this encounter Visit Diagnoses Diagnosis Anxiety Anxiety state, unspecified documented in this encounter Additional Health Concerns Infection Onset Date Last Indicated Resolved Time COVID - 19 Confirmed 01/15/2022 01/15/2022 022 12:16 AM CDT Assessment Noted Time PHQ-9 Depression Total Score: 0 07/07/19 22 10:00 AM SEWER CONTRACTOR documented as of this encounter Care Teams Lens Block Gauger Relationship Specialty Start Date End Date Negro Huerta, WEB PRODUCTION DESIGNER, INTERMEDIATE MANAGER #[address] [address] PCP - General Advanced Practice Nurse 07/06/21 Denae Gonzalez DPM #2 [facility] [address] [place] [address] Consulting Physician Podiatry 04/24/22 Cherie Vizcarra, LEATHER HEEL BREASTER OR [place]remt Body Coverer 06/03/23 06/12/23 Amado Early APRN, INTERMEDIATE MANAGER #2 [place] [address] Nurse Practitioner Advanced Practice Nurse 09/02/23 Nohelia Haskins MD #2 [facility] [address] [place] [address] Consulting Physician Urology 10/11/23 Aga Garay APRN, INTERMEDIATE MANAGER 2 [facility] [address] [place] [address] Nurse Practitioner Cardiology 12/14/24 Leandro Jacques MD #2 [facility] [address] [place] [address] Consulting Physician Colon and Rectal Surgery 12/15/24 documented as of this encounter
--- OUTSIDE RECORDS SUMMARY | 2024-12-24 17:09 | XMS_ITS | Encounter Summary ---
Author Organization [facility] Address [address] [place] [address] Phone Care Team Providers Care Customer Service Receptionist Name Role Phone Negro Huerta APRN, FRENCH INSTRUCTOR Primary Care Pr ovider Denae Gonzalez DPM Unavailable [phone] Amado Early MANUFACTURING SOFTWARE ENGINEER, FRENCH INSTRUCTOR Unavailable Nohelia Haskins MD Unavailable [phone] Aga Garay APRN, FRENCH INSTRUCTOR Unavailable + [phone] Leandro Jacques MD Unavailable Reason for Visit * Reason Comments Medication Refill Encounter Details Date Type Department Care Team (Late st Contact Info) Description 10/03/2023 Refill [facility] - Family Medicine - [place] [address]2 [place] [address] Negro Huerta APRN, FRENCH INSTRUCTOR #[address] [address] Medication Refill Social History Tobacco Use Types Packs/Day Years Used Date Smoking Tobacco: Every Day Cigarettes Smokeless Tobacco: Never Alcohol Use Standard Drinks/Week Comments Not Currently 0 (1 standard drink = 0.6 oz pur e alcohol) [facility] Utilities Answer Date Recorded In [...] often do you attend chur ch or sabianism services? Never 06/12/2023 Do you belong to any clubs o r organizations such as nondenominational groups, unions, fraternal or athletic groups, or [...] Total Score - Questions 1-9 9 11/2023 [facility] of Occupat ional Health - Occupational [...] place to sleep or slept in a fci (including now)? No 06/12/2023 Education Answer Date Recorded What is the highest level of school you have completed or the highest degree you have received? Associate degree: occupational, technical, or vocational program 09/21/2022 Comments No Sex and Gender Information Value Date Recorded Sex Assigned at Female 11/15/2023 3:17 PM CDT Legal Sex Female 2:07 PM SHORTS SIFTER Gender Identity Female 11/15/2023 3:17 PM CDT Sexual Orientation Straight 11/15/2023 3: 17 PM CDT documented as of this encounter Miscellaneous Notes * Telephone Encounter - Ira Thompson RN - 10/03/2023 1:41 PM CDT PDMP 09/04/23 Medication failed the protocol, provider to review and approve the medication order if appropriate. Requested Prescriptions Pending Prescriptions Disp Refills ALPRAZolam (XANAX) 1 MG Tablet [Pharmacy Med Name: ALPRAZOLAM 1MG TABLET] 90 Tablet 0 Sig: TAKE 1 TABLET BY MOUTH 3 TIMES DAILY NEEDED FOR ANXIETY. Not Delegated - Benzodiazepines Protocol Failed - 10/03/2023 12:50 PM Failed - This refill cannot be delegated Passed - Visit with relevant provider in past 12 months or upcoming 90 days Recent Visits Date Type Provider Dept 05/31/23 Office Visit Negro Huerta APRN, CNP [facility] [place] 04/04/23 Office Visit Leti Byrnes APRN, CNP [facility] 03/27/23 Office Visit Negro Huerta APRN, [facility] 01/29/23 Office Visit Negro Huerta APRN, HOMAR [facility] Showing recent visits within past 365 days and meeting all other requirements Future Appointments No visits were found meeting these conditions. Showing future appointments within next 90 days and meeting all other requirements documented in this encounter Plan of Treatment Upcoming Encounters Date Type Department Care Team (Late st Contact Info) Description 03/23/2025 1:30 PM SHORTS SIFTER Office Visit [facility] Medical [facility] - Family Medicine - [place] [address] [place] [phone] Negro Huerta APRN, FRENCH INSTRUCTOR #[address] [address] 04/16/2025 1:00 PM SHORTS SIFTER Office Visit [facility] Medical [facility] - Cardiology - [place] [address] [place] [phone] Aga Garay APRN, FRENCH INSTRUCTOR 2 [facility] [address] [place] [address] 07/20/2025 1:00 PM CDT Office Visit [facility] PHYSICIAN [facility] UROLOGY #2 [place] [phone] Amado Early APRN, FRENCH INSTRUCTOR #2 [place] [address] documented as of this encounter Visit Diagnoses Diagnosis Anxiety Anxiety state, unspecified documented in this encounter Additional Health Concerns Assessment Noted Time PHQ-9 Depression Total Score: 9 06/12/19 24 3:31 PM SHORTS SIFTER documented as of this encounter Care Teams Customer Service Receptionist Relationship Specialty Start Date End Date Negro Huerta, MANUFACTURING SOFTWARE ENGINEER, FRENCH INSTRUCTOR #2 [facility] [address] [place] [address] PCP - General Advanced Practice Nurse 07/06/21 Denae Gonzalez DPM #2 [facility] [address] [place] [address] Consulting Physician Podiatry 04/24/22 Amado Early APRN, FRENCH INSTRUCTOR #2 [place] [address] Nurse Practitioner Advanced Practice Nurse 09/02/23 Nohelia Haskins MD #2 [facility] [address] [place] [address] Consulting Physician Urology 10/11/23 Aga Garay MANUFACTURING SOFTWARE ENGINEER, FRENCH INSTRUCTOR 2 [facility] [address] [place] [address] Nurse Practitioner Cardiology 12/14/24 Leandro Jacques MD #2 [facility] [address] [place] [address] Consulting Physician Colon and Rectal Surgery 12/15/24 documented as of this encounter
--- OUTSIDE RECORDS SUMMARY | 2024-12-24 17:09 | XMS_ITS | Encounter Summary ---
Author Organization [facility] Address [address] [place] [address] Phone Care Team Providers Care Flavorings Compounder Name Role Phone Negro Huerta APRN, MATERIAL CONTROL ASSOCIATE Primary Care Pr ovider Denae Gonzalez DPM Unavailable [phone] Cherie Vizcarra MECHANICAL ENGINEERING SPECIALIST Unavailable Unavailab Amado Signer APPLIER, MATERIAL CONTROL ASSOCIATE Unavailable Nohelia Haskins MD Unavailable [phone] Aga Garay APPLIER, MATERIAL CONTROL ASSOCIATE Unavailable + [phone] Leandro Jacques MD Unavailable Reason for Visit * Reason Comments Medication Refill Encounter Details Date Type Department Care Team (Late st Contact Info) Description 12/05/2022 Refill [facility] - Family Medicine - [place] [address] [place] [address] Leti Byrnes APRN, MATERIAL CONTROL ASSOCIATE #[address] [address] Medication Refill Social History Tobacco Use Types Packs/Day Years Used Date Smoking Tobacco: Every Day Cigarettes Smokeless Tobacco: Never Alcohol Use Standard Drinks/Week Comments Not Currently 0 (1 standard drink = 0.6 oz pur e alcohol) PHQ-2 Answer Date Recorded Total Score - Questions 1-9 0 0 07/2021 Education Answer Date Recorded What is the highest level of school you have completed or the highest degree you have received? Associate degree: occupational, technical, or vocational program 09/21/2022 Comments No Sex and Gender Information Value Date Recorded Sex Assigned at Female 11/15/2023 3:17 PM CDT Legal Sex Female 2:07 PM CUSTOMER SERVICES MANAGER Gender Identity Female 11/15/2023 3:17 PM CDT Sexual Orientation Straight 11/15/2023 3: 17 PM CDT COVID-19 Exposure Response Date Recorded In the last 10 days, have yo u been in contact with someone who was confirmed or suspected to have Coronavirus/COVID-19? No / Unsure 12/06/2022 1:27 PM CDT documented as of this encounter Miscellaneous Notes * Telephone Encounter - Kathy Aceves RN - 12/05/2022 9:51 AM CDT Medication failed the protocol, provider to review and approve the medication order if appropriate. SEE PDMP Requested Prescriptions Pending Prescriptions Disp Refills ALPRAZolam (XANAX) 1 MG Tablet [Pharmacy Med Name: ALPRAZOLAM 1MG TABLET] 90 Tablet 0 Sig: Take 1 Tablet by mouth 3 times daily as needed for Anxiety. Not Delegated - Benzodiazepines Protocol Failed - 12/05/2022 9:06 AM Failed - This refill cannot be delegated Passed - Visit with relevant provider in past 12 months or upcoming 90 days Recent Visits Date Type Provider Dept 09/28/22 Office Visit Negro Huerta APRN, HOMAR [facility] 06/29/22 Office Visit Leti Byrnes APRN, HOMAR [facility] 05/31/22 Office Visit Negro Huerta APRN, HOMAR [facility] 02/26/22 Office Visit Negro Huerta APRN, HOMAR [facility] Showing recent visits within past 365 days and meeting all other requirements Future Appointments Date Type Provider Dept 01/29/23 Appointment Negro Huerta APRN, HOMAR [facility] Showing future appointments within next 90 days and meeting all other requirements documented in this encounter Plan of Treatment Upcoming Encounters Date Type Department Care Team (Late st Contact Info) Description 03/23/2025 1:30 PM CUSTOMER SERVICES MANAGER Office Visit [facility] Medical [facility] - Family Medicine - [place] [address] [place] [address] Negro Huerta APRN, MATERIAL CONTROL ASSOCIATE #2 [facility] [address] [place] [address] 04/16/2025 1:00 PM CUSTOMER SERVICES MANAGER Office Visit [facility] - Cardiology - [place] [address] [place] [address] Aga Garay APRN, HOMAR 2 [facility] [address] [place] [address] 07/20/2025 1:00 PM CDT Office Visit [facility] UROLOGY #2 [facility] [place] [address] Amado Early APRN, HOMAR #2 [place] [address] documented as of this encounter Visit Diagnoses Diagnosis Anxiety Anxiety state, unspecified documented in this encounter Additional Health Concerns Assessment Noted Time PHQ-9 Depression Total Score: 0 07/07/19 22 10:00 AM CUSTOMER SERVICES MANAGER documented as of this encounter Care Teams Flavorings Compounder Relationship Specialty Start Date End Date Negro Huerta APRN, HOMAR #2 [facility] [address] [place] [address] PCP - General Advanced Practice Nurse 07/06/21 Denae Gonzalez DPM #2 [facility] [address] [place] [address] Consulting Physician Podiatry 04/24/22 Cherie Vizcarra, MECHANICAL ENGINEERING SPECIALIST [place] Business Support Professional Field Reviewer 06/03/23 06/12/23 Amado Early APPLIER, MATERIAL CONTROL ASSOCIATE #2 [place] [address] Nurse Practitioner Advanced Practice Nurse 09/02/23 Nohelia Haskins MD #2 [facility] [address] [place] [address] Consulting Physician Urology 10/11/23 Aga Garay APRN, MATERIAL CONTROL ASSOCIATE 2 [facility] [address] [place] [address] Nurse Practitioner Cardiology 12/14/24 Leandro Jacques MD #2 [facility] [address] [place] [address] Consulting Physician Colon and Rectal Surgery 12/15/24 documented as of this encounter
--- OUTSIDE RECORDS SUMMARY | 2024-12-24 17:09 | XMS_ITS | Encounter Summary ---
Author Organization [facility] Address [address] [place] [address] Phone Care Team Providers Care Slicing Machine Operator/Tender Name Role Phone Negro Huerta APRN, GAME TECHNICIAN Primary Care Pr ovider Denae Gonzalez DPM Unavailable [phone] Amado Early BAG LOADER, GAME TECHNICIAN Unavailable Nohelia Haskins MD Unavailable [phone] Aga Garay APRN, GAME TECHNICIAN Unavailable + [phone] Leandro Jacques MD Unavailable Reason for Visit * Reason Comments Medication Refill Encounter Details Date Type Department Care Team (Late st Contact Info) Description 09/03/2023 Refill [facility] - Family Medicine - [place] [address] [place] [address] Negro Huerta APRN, GAME TECHNICIAN #[address] [address] Medication Refill Social History Tobacco Use Types Packs/Day Years Used Date Smoking Tobacco: Every Day Cigarettes Smokeless Tobacco: Never Alcohol Use Standard Drinks/Week Comments Not Currently 0 (1 standard drink = 0.6 oz pur e alcohol) [facility] Utilities Answer Date Recorded In [...] often do you attend chur ch or holiness services? Never 06/12/2023 Do you belong to any clubs o r organizations such as shinto groups, unions, fraternal or athletic groups, or [...] Total Score - Questions 1-9 9 11/2023 [facility] of Occupat ional Health - Occupational Stress [...] place to sleep or slept in a jail (including now)? No 06/12/2023 Education Answer Date Recorded What is the highest level of school you have completed or the highest degree you have received? Associate degree: occupational, technical, or vocational program 09/21/2022 Comments No Sex and Gender Information Value Date Recorded Sex Assigned at Female 11/15/2023 3:17 PM CDT Legal Sex Female 2:07 PM LEATHER SPRAYER Gender Identity Female 11/15/2023 3:17 PM CDT Sexual Orientation Straight 11/15/2023 3: 17 PM CDT documented as of this encounter Miscellaneous Notes * Telephone Encounter - Ira Thompson RN - 09/04/2023 8:04 AM CDT PDMP 07/31/23 Medication failed the protocol, provider to review and approve the medication order if appropriate. Requested Prescriptions Pending Prescriptions Disp Refills ALPRAZolam (XANAX) 1 MG Tablet [Pharmacy Med Name: ALPRAZOLAM 1MG TABLET] 90 Tablet 0 Sig: TAKE 1 TABLET BY MOUTH 3 TIMES DAILY NEEDED FOR ANXIETY. Not Delegated - Benzodiazepines Protocol Failed - 09/03/2023 4:06 PM Failed - This refill cannot be delegated Passed - Visit with relevant provider in past 12 months or upcoming 90 days Recent Visits Date Type Provider Dept 05/31/23 Office Visit Negro Huerta APRN, CNP [facility] 04/04/23 Office Visit Leti Byrnes APRN, HOMAR [facility] 03/27/23 Office Visit Negro Huerta APRN, CNP [facility] 01/29/23 Office Visit Negro Huerta APRN, HOMAR [facility] 09/28/22 Office Visit Negro Huerta APRN, HOMAR [facility] Showing recent visits within past 365 days and meeting all other requirements Future Appointments No visits were found meeting these conditions. Showing future appointments within next 90 days and meeting all other requirements albuterol 108 (90 Base) MCG/ACT Aerosol Solution [Pharmacy Med Name: ALBUTEROL SULFATE HFA HFA AEROSOL SOLTim] 18 g 11 Sig: INHALE 2 PUFFS INTO THE LUNGS FOUR (4) TIMES DAILY Short Acting Inhaled Beta-Agonists Protocol Passed - 09/03/2023 4:06 PM Passed - Visit with relevant provider in past 12 months or upcoming 90 days Recent Visits Date Type Provider Dept 05/31/23 Office Visit Negro Huerta APRN, CNP [facility] 04/04/23 Office Visit Leti Byrnes APRN, CNP [facility] 03/27/23 Office Visit Negro Huerta APRN, CNP [facility] 01/29/23 Office Visit Negro Huerta APRN, CNP [facility] 09/28/22 Office Visit Negro Huerta APRN, HOMAR [facility] Showing recent visits within past 365 days and meeting all other requirements Future Appointments No visits were found meeting these conditions. Showing future appointments within next 90 days and meeting all other requirements documented in this encounter Plan of Treatment Upcoming Encounters Date Type Department Care Team (Late st Contact Info) Description 03/23/2025 1:30 PM LEATHER SPRAYER Office Visit [facility] - Family [facility] - [place] [address] [place] [address] Negro Huerta APRN, GAME TECHNICIAN #[address] [address] 04/16/2025 1:00 PM LEATHER SPRAYER Office Visit [facility] - Cardiology - [place] #2 [place] [address] Aga Garay APRN, GAME TECHNICIAN 2 [facility] [address] [place] [address] 07/20/2025 1:00 PM CDT Office Visit [facility] UROLOGY #2 [place] [address] Amado Early APRN, GAME TECHNICIAN #2 [place] [address] documented as of this encounter Visit Diagnoses Diagnosis Anxiety Anxiety state, unspecified documented in this encounter Additional Health Concerns Assessment Noted Time PHQ-9 Depression Total Score: 9 06/12/19 24 3:31 PM LEATHER SPRAYER documented as of this encounter Care Teams Slicing Machine Operator/Tender Relationship Specialty Start Date End Date Negro Huerta APRN, HOMAR #[address] [address] PCP - General Advanced Practice Nurse 07/06/21 Denae Gonzalez DPM #[address] [address] Consulting Physician Podiatry 04/24/22 Amado Early APRN, GAME TECHNICIAN #2 [place] [address] Nurse Practitioner Advanced Practice Nurse 09/02/23 Nohelia Haskins MD #2 [facility] [address] [place] [address] Consulting Physician Urology 10/11/23 Aga Garay APRN, GAME TECHNICIAN 2 [facility] [address] [place] [address] Nurse Practitioner Cardiology 12/14/24 Leandro Jacques MD #2 [facility] [address] [place] [address] Consulting Physician Colon and Rectal Surgery 12/15/24 documented as of this encounter
--- OUTSIDE RECORDS SUMMARY | 2024-12-24 17:09 | XMS_ITS | Encounter Summary ---
Author Organization [facility] Address [address] [place] [address] Phone Care Team Providers Care Industrial Economics Professor Name Role Phone Negro Huerta APRN, TELEVISION ANTENNA INSTALLER Primary Care Pr ovider Denae Gonzalez DPM Unavailable [phone] Cherie Vizcarra REPLENISHMENT MERCHANDISING ASSOCIATE Unavailable Unavailab Amado Singer BANK CASHIER, TELEVISION ANTENNA INSTALLER Unavailable [phone] Nohelia Haskins MD Unavailable [phone] Aga Garay APRN, TELEVISION ANTENNA INSTALLER Unavailable + [phone] Leandro Jacques MD Unavailable Reason for Visit * Reason Comments Medication Refill Encounter Details Date Type Department Care Team (Late st Contact Info) Description 08/06/2022 Refill [facility] - Family Medicine - [place] #2 [place] [address] Negro Huerta APRN, TELEVISION ANTENNA INSTALLER #[address] [address] Medication Refill Social History Tobacco Use Types [...] PM CDT Legal Sex Female 2:07 PM SENSOR OPERATOR Gender Identity Female 11/15/2023 3:17 PM CDT Sexual Orientation Straight 11/15/2023 3: 17 PM CDT documented as of this encounter Miscellaneous Notes * Telephone Encounter - Ira Thompson RN - 08/07/2022 7:39 AM CDT Name from pharmacy: ALPRAZOLAM 1MG TABLET Will file in chart as: ALPRAZolam (XANAX) 1 MG Tablet The original prescription was reordered on 08/06/2022 by Negro Huerta APRN, TELEVISION ANTENNA INSTALLER. * Telephone Encounter - Ira Thompson RN - 08/06/2022 3:21 PM CDT duplicate documented in this encounter Plan of Treatment Upcoming Encounters Date Type Department Care Team (Late st Contact Info) Description 03/23/2025 1:30 PM SENSOR OPERATOR Office Visit [facility] Medical Group - Family Medicine - [place] [address] [place] [address] Negro Huerta APRN, TELEVISION ANTENNA INSTALLER #[address] [address] 04/16/2025 1:00 PM SENSOR OPERATOR Office Visit [facility] Medical Group - Cardiology - [place] #2 [place] [address] Aga Garay APRN, TELEVISION ANTENNA INSTALLER 2 [facility] [address] [place] [address] 07/20/2025 1:00 PM CDT Office Visit [facility] UROLOGY #2 [place] [address] Amado Early APRN, TELEVISION ANTENNA INSTALLER #2 [place] [address] documented as of this encounter Visit Diagnoses Diagnosis Anxiety Anxiety state, unspecified documented in this encounter Additional Health Concerns Assessment Noted Time PHQ-9 Depression Total Score: 0 07/07/19 10:00 AM SENSOR OPERATOR documented as of this encounter Care Teams Industrial Economics Professor Relationship Specialty Start Date End Date Negro Huerta APRN, TELEVISION ANTENNA INSTALLER #2 [facility] [address] [place] [address] PCP - General Advanced Practice Nurse 07/06/21 Denae Gonzalez DPM #2 [facility] [address] [place] [address] Consulting Physician Podiatry 04/24/22 Cherie Vizcarra, [facility] General Counselor Customer Service Agent 06/03/23 06/12/23 Amado Early APRN, TELEVISION ANTENNA INSTALLER #2 [place] [address] Nurse Practitioner Advanced Practice Nurse 09/02/23 Nohelia Haskins MD #2 [facility] [address] [place] [address] Consulting Physician Urology 10/11/23 Aga Garay APRN, TELEVISION ANTENNA INSTALLER 2 [facility] [address] [place] [address] Nurse Practitioner Cardiology 12/14/24 Leandro Jacques MD #2 [place] [address] Consulting Physician Colon and Rectal Surgery 12/15/24 documented as of this encounter
--- OUTSIDE RECORDS SUMMARY | 2024-12-24 17:09 | XMS_ITS | Encounter Summary ---
Author Organization [facility] Address [address] [place] [address] Phone Care Team Providers Care Procurement Services Manager Name Role Phone Negro Huerta BDR, WIRELESS TECHNICIAN Primary Care Pr ovider Denae Gonzalez DPM Unavailable [phone] Cherie Vizcarra ENVIRONMENTAL STUDIES FACULTY MEMBER Unavailable Unavailab Amado Singer BDR, WIRELESS TECHNICIAN Unavailable [phone] Nohelia Haskins MD Unavailable [phone] Aga Garay BDR, WIRELESS TECHNICIAN Unavailable + [phone] Leandro Jacques MD Unavailable Reason for Visit * Reason Comments Medication Refill Encounter Details Date Type Department Care Team (Late st Contact Info) Description 12/02/2021 [facility]ill [facility] - [facility] #2 [place] [address] Frank Navarro MD #[address] [address] Medication Refill Social History Tobacco Use Types [...] PM CDT Legal Sex Female 2:07 PM DEEP FAT COOK FRY Gender Identity Female 11/15/2023 3:17 PM CDT Sexual Orientation Straight 11/15/2023 3: 17 PM CDT COVID-19 Exposure Response Date Recorded In the last 10 days, have yo u been in contact with someone who was confirmed or suspected to have Coronavirus/COVID-19? No / Unsure 12/01/2021 1:37 PM CDT documented as of this encounter Miscellaneous Notes * Telephone Encounter - Ira Thompson RN - 12/04/2021 10:12 AM CDT PRN medication requires review from provider Medication failed the protocol, provider to review and approve the medication order if appropriate. Requested Prescriptions Pending Prescriptions Disp Refills albuterol 108 (90 Base) MCG/ACT Aerosol Solution [Pharmacy Med Name: ALBUTEROL SULFATE HFA HFA AEROSOL SOLN] 8.5 g 2 Sig: INHALE 2 PUFFS INTO LUNGS FOUR (4) TIMES DAILY Short Acting Inhaled Beta-Agonists Protocol Passed - 12/02/2021 9:02 AM Passed - Visit with relevant provider in past 12 months or upcoming 90 days Recent Visits Date Type Provider Dept 11/13/21 Office Visit Negro Huerta APRN, CNP [facility] 08/28/21 Office Visit Negro Huerta APRN, [facility] 08/04/21 Office Visit Negro Huerta APRN, [facility] 07/06/21 Office Visit Negro Huerta APRN, [facility] Showing recent visits within past 365 days and meeting all other requirements Future Appointments Date Type Provider Dept 02/13/22 Appointment Negro Huerta APRN, [facility] Showing future appointments within next 90 days and meeting all other requirements documented in this encounter Plan of Treatment Upcoming Encounters Date Type Department Care Team (Late st Contact Info) Description 03/23/2025 1:30 PM DEEP FAT COOK FRY Office Visit [facility] - Family Medicine - [place] #2 [facility] [place] [address] Negro Huerta, BDR, WIRELESS TECHNICIAN #[address] [address] 04/16/2025 1:00 PM DEEP FAT COOK FRY Office Visit [facility] - Cardiology - [place] #2 [place] [address] Aga Garay APRN, WIRELESS TECHNICIAN 2 [facility] [address] [place] [address] 07/20/2025 1:00 PM CDT Office Visit [facility] #2 [place] [address] Amado Early APRN, WIRELESS TECHNICIAN #2 [place] [address] documented as of this encounter Visit Diagnoses Not on filedocumented in this encounter Additional Health Concerns Infection Onset Date Last Indicated Resolved Time COVID - 19 Confirmed 01/15/2022 01/15/2022 022 12:16 AM CDT Assessment Noted Time PHQ-9 Depression Total Score: 0 07/07/19 22 10:00 AM DEEP FAT COOK FRY documented as of this encounter Care Teams Procurement Services Manager Relationship Specialty Start Date End Date Negro Huerta APRN, WIRELESS TECHNICIAN #[address] [address] PCP - General Advanced Practice Nurse 07/06/21 Denae Gonzalez DPM #[address] [place] [address] Consulting Physician Podiatry 04/24/22 Cherie Vizcarra, ENVIRONMENTAL STUDIES FACULTY MEMBER [place] Equipment Superintendent Publicist 06/03/23 06/12/23 Amado Early APRN, WIRELESS TECHNICIAN #2 [place] [address] Nurse Practitioner Advanced Practice Nurse 09/02/23 Nohelia Haskins MD #2 [facility] [address] [place] [address] Consulting Physician Urology 10/11/23 Aga Garay APRN, WIRELESS TECHNICIAN 2 [facility] [address] [place] [address] Nurse Practitioner Cardiology 12/14/24 Leandro Jacques MD #2 [facility] [address] [place] [address] Consulting Physician Colon and Rectal Surgery 12/15/24 documented as of this encounter
--- OUTSIDE RECORDS SUMMARY | 2024-12-24 17:09 | XMS_ITS | Encounter Summary ---
Author Organization [facility] Address [address] [place] [address] Phone Care Team Providers Care Knotting Machine Operator Name Role Phone Negro Huerta APRN, PARLOR MAID Primary Care Pr ovider Denae Gonzalez DPM Unavailable [phone] Cherie Vizcarra SPREADER Unavailable Unavailab Amado Singer MANDARIN CHINESE TEACHER, PARLOR MAID Unavailable [phone] Nohelia Haskins MD Unavailable [phone] Aga Garay APRN, PARLOR MAID Unavailable + [phone] Leandro Jacques MD Unavailable Reason for Visit * Reason Comments Medication Refill Encounter Details Date Type Department Care Team (Late st Contact Info) Description 03/09/2022 Refill [facility] - Family Medicine - [place] #2 [place] [address] Negro Huerta APRN, PARLOR MAID #[address] [address] Medication Refill Social History Tobacco Use Types [...] PM CDT Legal Sex Female 2:07 PM FREELANCE GRAPHIC DESIGNER Gender Identity Female 11/15/2023 3:17 PM CDT Sexual Orientation Straight 11/15/2023 3: 17 PM CDT COVID-19 Exposure Response Date Recorded In the last 10 days, have yo u been in contact with someone who was confirmed or suspected to have Coronavirus/COVID-19? No / Unsure 02/26/2022 2:37 PM CDT documented as of this encounter Miscellaneous Notes * Telephone Encounter - Ira Thompson RN - 03/09/2022 2:12 PM CDT PDMP 02/09/22 - pharmacy closed on due /Saturday Medication failed the protocol, provider to review and approve the medication order if appropriate. Requested Prescriptions Pending Prescriptions Disp Refills ALPRAZolam (XANAX) 1 MG Tablet [Pharmacy Med Name: ALPRAZOLAM 1MG TABLET] 90 Tablet 0 Sig: TAKE ONE (1) TABLET BY MOUTH THREE (3) TIMES DAILY NEEDED FOR ANXIETY Not Delegated - Benzodiazepines Protocol Failed - 03/09/2022 11:54 AM Failed - This refill cannot be delegated Passed - Visit with relevant provider in past 12 months or upcoming 90 days Recent Visits Date Type Provider Dept 02/26/22 Office Visit Negro Huerta APRN, HOMAR [...] Dept 05/31/22 Appointment Negro Huerta APRN, HOM[facility] Showing future appointments within next 90 days and meeting all other requirements documented in this encounter Plan of Treatment Upcoming Encounters Date Type Department Care Team (Late st Contact Info) Description 03/23/2025 1:30 PM FREELANCE GRAPHIC DESIGNER Office Visit [facility] Medical [facility] - Family Medicine - [place] #2 [place] [address] Negro Huerta APRN, PARLOR MAID #2 [facility] [address] [place] [address] 04/16/2025 1:00 PM FREELANCE GRAPHIC DESIGNER Office Visit [facility] - Cardiology - [place] #2 [facility] [address] Aga Garay APRN, PARLOR MAID 2 [facility] [address] [place] [address] 07/20/2025 1:00 PM CDT Office Visit [facility] #2 [facility] [address] Amado Early APRN, PARLOR MAID #2 [facility] [address] documented as of this encounter Visit Diagnoses Diagnosis Anxiety Anxiety state, unspecified documented in this encounter Additional Health Concerns Assessment Noted Time PHQ-9 Depression Total Score: 0 07/07/19 22 10:00 AM FREELANCE GRAPHIC DESIGNER documented as of this encounter Care Teams Knotting Machine Operator Relationship Specialty Start Date End Date Negro Huerta APRN, PARLOR MAID #2 [facility] [address] [place] [address] PCP - General Advanced Practice Nurse 07/06/21 Denae Gonzalez DPM #2 [facility] [address] [place] [address] Consulting Physician Podiatry 04/24/22 Cherie Vizcarra, [facility] Aviation Tactical Readiness Officer Vice President Diversity 06/03/23 06/12/23 Amado Early, MANDARIN CHINESE TEACHER, PARLOR MAID #2 [place] [address] Nurse Practitioner Advanced Practice Nurse 09/02/23 Nohelia Haskins MD #2 [facility] [address] [place] [address] Consulting Physician Urology 10/11/23 Aga Garay MANDARIN CHINESE TEACHER, PARLOR MAID 2 [facility] [address] [place] [address] Nurse Practitioner Cardiology 12/14/24 Lenadro Jacques MD #2 [facility] [address] [place] [address] Consulting Physician Colon and Rectal Surgery 12/15/24 documented as of this encounter
--- OUTSIDE RECORDS SUMMARY | 2024-12-24 17:09 | XMS_ITS | Encounter Summary ---
Author Organization [facility] Address [address] [place] [address] Phone Care Team Providers Care Lead Pressman Name Role Phone Negro Huerta APRN, AGRICULTURE INSPECTOR Primary Care Pr ovider Denae Gonzalez DPM Unavailable [phone] Cherie Vizcarra BOTTLED BEVERAGE INSPECTOR Unavailable Unavailab Amado Singer GEOPHYSICAL LABORATORY DIRECTOR, AGRICULTURE INSPECTOR Unavailable Nohelia Haskins MD Unavailable [phone] Aga Garay APRN, AGRICULTURE INSPECTOR Unavailable + [phone] Leandro Jacques MD Unavailable Reason for Visit * Reason Comments Medication Refill Encounter Details Date Type Department Care Team (Late st Contact Info) Description 12/01/2021 Refill [facility] - Family Medicine - [place] #2 [place] [address] Negro Huerta APRN, AGRICULTURE INSPECTOR #[address] [address] Medication Refill Social History Tobacco Use Types [...] PM CDT Legal Sex Female 2:07 PM HOBBER Gender Identity Female 11/15/2023 3:17 PM CDT Sexual Orientation Straight 11/15/2023 3: 17 PM CDT COVID-19 Exposure Response Date Recorded In the last 10 days, have yo u been in contact with someone who was confirmed or suspected to have Coronavirus/COVID-19? No / Unsure 12/01/2021 1:37 PM CDT documented as of this encounter Miscellaneous Notes * Telephone Encounter - Ira Thompson RN - 12/01/2021 3:54 PM CDT PDMP 12/04/21 - pharmacy closed on due /Saturday Medication failed the protocol, provider to review and approve the medication order if appropriate. Requested Prescriptions Pending Prescriptions Disp Refills ALPRAZolam (XANAX) 1 MG Tablet [Pharmacy Med Name: ALPRAZOLAM 1MG TABLET] 90 Tablet 0 Sig: TAKE ONE (1) TABLET BY MOUTH THREE (3) TIMES DAILY NEEDED FOR ANXIETY Not Delegated - Benzodiazepines Protocol Failed - 12/01/2021 3:50 PM Failed - This refill cannot be delegated Passed - Visit with relevant provider in past 12 months or upcoming 90 days Recent Visits Date Type Provider Dept 11/13/21 Office Visit Negro Huerta APRN, HOMAR [...] st Contact Info) Description 03/23/2025 1:30 PM HOBBER Office Visit [facility] Medical [facility] - Family Medicine [facility] #2 [place] [address] Negro Huerta APRN, AGRICULTURE INSPECTOR #2 [facility] [address] [place] [address] 04/16/2025 1:00 PM HOBBER Office Visit [facility] Card[facility] #2 [place] [address] Aga Garay APRN, AGRICULTURE INSPECTOR 2 [facility] [address] [place] [address] 07/20/2025 1:00 PM CDT Office Visit [facility] #2 [place] [address] Amado Early APRN, AGRICULTURE INSPECTOR #2 [place] [address] documented as of this encounter Visit Diagnoses Diagnosis Anxiety Anxiety state, unspecified documented in this encounter Additional Health Concerns Infection Onset Date Last Indicated Resolved Time COVID - 19 Confirmed 01/15/2022 01/15/2022 022 12:16 AM CDT Assessment Noted Time PHQ-9 Depression Total Score: 0 07/07/19 22 10:00 AM HOBBER documented as of this encounter Care Teams Lead Pressman Relationship Specialty Start Date End Date Negro Huerta APRN, AGRICULTURE INSPECTOR #[address] [place] [address] PCP - General Advanced Practice Nurse 07/06/21 Denae Gonzalez DPM #2 [facility] [address] [place] [address] Consulting Physician Podiatry 04/24/22 Cherie Vizcarra, BOTTLED BEVERAGE INSPECTOR [place] Mathematics Professor General Engineering Teacher 06/03/23 06/12/23 Amado Early, GEOPHYSICAL LABORATORY DIRECTOR, AGRICULTURE INSPECTOR #2 [place] [address] Nurse Practitioner Advanced Practice Nurse 09/02/23 Nohelia Haskins MD #2 [facility] [address] [place] [address] Consulting Physician Urology 10/11/23 Aga Garay GEOPHYSICAL LABORATORY DIRECTOR, AGRICULTURE INSPECTOR 2 [facility] [address] [place] [address] Nurse Practitioner Cardiology 12/14/24 Leandro Jacques MD #2 [facility] [address] [place] [address] Consulting Physician Colon and Rectal Surgery 12/15/24 documented as of this encounter
--- OUTSIDE RECORDS SUMMARY | 2024-12-24 17:09 | XMS_ITS | Encounter Summary ---
Author Organization [facility] Address [address] [place] [address] Phone Care Team Providers Care Fur Sorter Name Role Phone Negro Huerta APRN, INTERNAL MEDICINE HOSPITALIST Primary Care Pr ovider Denae Gonzalez DPM Unavailable [phone] Cherie Vizcarra ANTISQUEAK FILLER Unavailable Unavailab Amado Singer COMPLIANCE ASSOCIATE, INTERNAL MEDICINE HOSPITALIST Unavailable [phone] Nohelia Haskins MD Unavailable [phone] Aga Garay APRN, INTERNAL MEDICINE HOSPITALIST Unavailable + [phone] Leandro Jacques MD Unavailable Reason for Visit * Reason Comments Medication Refill Encounter Details Date Type Department Care Team (Late st Contact Info) Description 12/26/2021 Refill [facility] - Family Medicine - [place] #2 [place] [address] Negro Huerta APRN, INTERNAL MEDICINE HOSPITALIST #[address] [address] Medication Refill Social History Tobacco Use Types [...] PM CDT Legal Sex Female 2:07 PM COUNTY TAX ASSESSOR Gender Identity Female 11/15/2023 3:17 PM CDT Sexual Orientation Straight 11/15/2023 3: 17 PM CDT COVID-19 Exposure Response Date Recorded In the last 10 days, have yo u been in contact with someone who was confirmed or suspected to have Coronavirus/COVID-19? No / Unsure 12/11/2021 1:34 PM CDT documented as of this encounter Miscellaneous Notes * Telephone Encounter - Renée Nj RN - 12/26/2021 12:00 PM CDT PDMP alprazolam filled 12/05/2021 #90 for 30 day supply. Medication failed the protocol, provider to review and approve the medication order if appropriate. Requested Prescriptions Pending Prescriptions Disp Refills ALPRAZolam (XANAX) 1 MG Tablet [Pharmacy Med Name: ALPRAZOLAM 1MG TABLET] 90 Tablet 0 Sig: TAKE ONE (1) TABLET BY MOUTH THREE (3) TIMES DAILY NEEDED FOR ANXIETY Not Delegated - Benzodiazepines Protocol Failed - 12/26/2021 10:26 AM Failed - This refill cannot be [...] Dept 02/19/22 Appointment Negro Huerta APRN, [facility] Showing future appointments within next 90 days and meeting all other requirements potassium chloride CR (KLORCON) 10 MEQ Tablet Controlled Release [Pharmacy Med Name: POTASSIUM CHLORIDE ER 10MEQ ER TABLET ER] 30 Tablet 0 Sig: TAKE 1 TABLET BY MOUTH DAILY. Potassium Supplement Protocol Passed - 12/26/2021 10:26 AM Passed - Normal serum potassium in past 12 months POTASSIUM Date Value Ref Range Status 12/11/2021 3.6 3.5 - 5.1 mmol/L Final Passed - Visit with relevant provider in past 12 months or upcoming 90 days Recent Visits Date Type Provider Dept 11/13/21 Office Visit Negro Huerta APRN, [facility] 08/28/21 Office Visit Negro Huerta APRN, [facility] 08/04/21 Office Visit Negro Huerta APRN, [facility] 07/06/21 Office Visit Negro Huerta APRN, [facility] Showing recent visits within past 365 days and meeting all other requirements Future Appointments Date Type Provider Dept 02/19/22 Appointment Negro Huerta APRN, [facility] Showing future appointments within next 90 days and meeting all other requirements documented in this encounter Plan of Treatment Upcoming Encounters Date Type Department Care Team (Late st Contact Info) Description 03/23/2025 1:30 PM COUNTY TAX ASSESSOR Office Visit [facility] Medical [facility] - Family Medicine - [place] #2 [place] [address] Negro Huerta APRN, HOMAR #2 [facility] [address] [place] [address] 04/16/2025 1:00 PM COUNTY TAX ASSESSOR Office Visit [facility] Medical [facility] - Cardiology - [place] #2 [place] [address] Aga Garay APRN, INTERNAL MEDICINE HOSPITALIST 2 [facility] [address] [place] [address] 07/20/2025 1:00 PM CDT Office [facility] #2 [place] [address] Amado Early APRN, INTERNAL MEDICINE HOSPITALIST #2 [place] [address] documented as of this encounter Visit Diagnoses Diagnosis Anxiety Anxiety state, unspecified Hypokalemia Hypopotassemia documented in this encounter Additional Health Concerns Infection Onset Date Last Indicated Resolved Time COVID - 19 Confirmed 01/15/2022 01/15/2022 022 12:16 AM CDT Assessment Noted Time PHQ-9 Depression Total Score: 0 07/07/19 10:00 AM COUNTY TAX ASSESSOR documented as of this encounter Care Teams Fur Sorter Relationship Specialty Start Date End Date Negro Huerta APRN, INTERNAL MEDICINE HOSPITALIST #2 [facility] [address] [place] [address] PCP - General Advanced Practice Nurse 07/06/21 Denae Gonzalez DPM #2 [facility] [address] [place] [address] Consulting Physician Podiatry 04/24/22 Cherie Vizcarra LSW CO Dye Winch Operator Wire Rope Sling Maker 06/03/23 06/12/23 Amado Early APRN, INTERNAL MEDICINE HOSPITALIST #2 [place] [address] Nurse Practitioner Advanced Practice Nurse 09/02/23 Nohelia Haskins MD #2 [facility] [address] [place] [address] Consulting Physician Urology 10/11/23 Aga Garay APRN, INTERNAL MEDICINE HOSPITALIST 2 [facility] [address] [place] [address] Nurse Practitioner Cardiology 12/14/24 Leandro Jacques MD #[address] [address] Consulting Physician Colon and Rectal Surgery 12/15/24 documented as of this encounter
--- OUTSIDE RECORDS SUMMARY | 2024-12-24 17:09 | XMS_ITS | Encounter Summary ---
Author Organization [facility] Address [address] [place] [address] Phone Care Team Providers Care Audit Director Name Role Phone Negro Huerta APRN, EARTH BORING MACHINE OPERATOR Primary Care Pr ovider Denae Gonzalez DPM Unavailable [phone] Cherie Vizcarra CIRCULATION MAN Unavailable Unavailab Amado Singer CAMERA REPAIRER, EARTH BORING MACHINE OPERATOR Unavailable [phone] Nohelia Haskins MD Unavailable [phone] Aga Garay APRN, EARTH BORING MACHINE OPERATOR Unavailable + [phone] Leandro Jacques MD Unavailable Reason for Visit * Reason Comments Medication Refill Encounter Details Date Type Department Care Team (Late st Contact Info) Description 09/05/2022 Refill [facility] - Family Medicine - [place] #2 [place] [address] Negro Huerta APRN, EARTH BORING MACHINE OPERATOR #[address] [address] Medication Refill Social History Tobacco Use Types [...] PM CDT Legal Sex Female 2:07 PM MENTAL HEALTH AIDE Gender Identity Female 11/15/2023 3:17 PM CDT Sexual Orientation Straight 11/15/2023 3: 17 PM CDT COVID-19 Exposure Response Date Recorded In the last 10 days, have yo u been in contact with someone who was confirmed or suspected to have Coronavirus/COVID-19? No / Unsure 08/24/2022 1:36 PM CDT documented as of this encounter Miscellaneous Notes * Telephone Encounter - Renée Nj RN - 09/05/2022 9:30 AM CDT PDMP 08/09/22 Medication failed the protocol, provider to review and approve the medication order if appropriate. Requested Prescriptions Pending Prescriptions Disp Refills ALPRAZolam (XANAX) 1 MG Tablet [Pharmacy Med Name: ALPRAZOLAM 1MG TABLET] 90 Tablet 0 Sig: Take 1 Tablet by mouth 3 times daily as needed for Anxiety. Not Delegated - Benzodiazepines Protocol Failed - 09/05/2022 8:10 AM Failed - This refill cannot be delegated Passed - Visit with relevant provider in past 12 months or upcoming 90 days Recent Visits Date Type Provider Dept 06/29/22 Office Visit Leti Byrnes APRN, CNP [facility] 05/31/22 Office Visit Negro Huerta APRN, CNP [facility] 02/26/22 Office Visit Negro Huerta APRN, CNP [facility] 11/13/21 Office Visit Negro Huerta APRN, [facility] Showing recent visits within past 365 days and meeting all other requirements Future Appointments Date Type Provider Dept 09/28/22 Appointment Negro Huerta APRN, [facility] Showing future appointments within next 90 days and meeting all other requirements documented in this encounter Plan of Treatment Upcoming Encounters Date Type Department Care Team (Late st Contact Info) Description 03/23/2025 1:30 PM MENTAL HEALTH AIDE Office Visit [facility] Medical [facility] - Family Medicine - [place] #2 [facility] [address] Negro Huerta, CAMERA REPAIRER, EARTH BORING MACHINE OPERATOR #2 [facility] [address] [place] [address] 04/16/2025 1:00 PM MENTAL HEALTH AIDE Office Visit [facility] - Cardiology - [place] #2 [facility] [place] [address] Aga Garay APRN, EARTH BORING MACHINE OPERATOR 2 [facility] [address] [place] [address] 07/20/2025 1:00 PM CDT Office Visit [facility]Y #2 [facility] [place] [address] Amado Early APRN, EARTH BORING MACHINE OPERATOR #2 [place] [address] documented as of this encounter Visit Diagnoses Diagnosis Anxiety Anxiety state, unspecified documented in this encounter Additional Health Concerns Assessment Noted Time PHQ-9 Depression Total Score: 0 07/07/19 22 10:00 AM MENTAL HEALTH AIDE documented as of this encounter Care Teams Audit Director Relationship Specialty Start Date End Date Negro Huerta, CAMERA REPAIRER, EARTH BORING MACHINE OPERATOR #2 [facility] [address] [place] [address] PCP - General Advanced Practice Nurse 07/06/21 Denae Gonzalez DPM #2 [facility] [address] [place] [address] Consulting Physician Podiatry 04/24/22 Cherie Vizcarra, [facility] Lookback Coordinator Bellperson 06/03/23 06/12/23 Amado Early APRN, EARTH BORING MACHINE OPERATOR #2 [place] [address] Nurse Practitioner Advanced Practice Nurse 09/02/23 Nohelia Haskins MD #[address] [facility] [address] [place] [address] Consulting Physician Urology 10/11/23 Aga Garay APRN, EARTH BORING MACHINE OPERATOR 2 [facility] [address] [place] [address] Nurse Practitioner Cardiology 12/14/24 Leandro Jacques MD #2 [facility] [address] [place] [address] Consulting Physician Colon and Rectal Surgery 12/15/24 documented as of this encounter
--- OUTSIDE RECORDS SUMMARY | 2024-12-24 17:09 | XMS_ITS | Encounter Summary ---
Author Organization [facility] Address [address] [place] [address] Phone Care Team Providers Care Resort Desk Clerk Name Role Phone Negro Huerta APRN, SUPERVISOR WRAPPING ROOM Primary Care Pr ovider Denae Gonzalez DPM Unavailable [phone] Cherie Vizcarra SPINNING MACHINE OPERATOR Unavailable Unavailab Amado Singer PRODUCTION ARTIST, SUPERVISOR WRAPPING ROOM Unavailable [phone] Nohelia Haskins MD Unavailable [phone] Aga Garay APRN, SUPERVISOR WRAPPING ROOM Unavailable + [phone] Leandro Jacques MD Unavailable Reason for Visit * Reason Comments Medication Refill Encounter Details Date Type Department Care Team (Late st Contact Info) Description 08/20/2022 [facility]ill [facility] - [facility] Medicine - [place] [address]2 [place] [address] Negro Huerta APRN, SUPERVISOR WRAPPING ROOM #[address] [address] Medication Refill Social History Tobacco Use Types [...] PM CDT Legal Sex Female 2:07 PM BARTENDER HELPER Gender Identity Female 11/15/2023 3:17 PM CDT Sexual Orientation Straight 11/15/2023 3: 17 PM CDT documented as of this encounter Miscellaneous Notes * Telephone Encounter - Renée Nj RN - 08/20/2022 12:51 PM CDT Medication failed the protocol, provider to review and approve the medication order if appropriate. Requested Prescriptions Pending Prescriptions Disp Refills albuterol 108 (90 Base) MCG/ACT Aerosol Solution [Pharmacy Med Name: ALBUTEROL SULFATE HFA HFA AEROSOL SOLN] 18 g Sig: INHALE 2 PUFFS INTO THE LUNGS FOUR (4) TIMES DAILY Short Acting Inhaled Beta-Agonists Protocol Passed - 08/20/2022 11:47 AM Passed - Visit with relevant provider in past 12 months or upcoming 90 days Recent Visits Date Type Provider Dept 06/29/22 Office Visit Leti Byrnes APRN, CNP [facility] 05/31/22 Office Visit Negro Huerta APRN, [facility] 02/26/22 Office Visit Negro Huerta APRN, CNP [facility] 11/13/21 Office Visit Negro Huerta APRN, CNP [facility] 08/28/21 Office Visit Negro Huerta APRN, [facility] Showing recent visits within past 365 days and meeting all other requirements Future Appointments Date Type Provider Dept 09/28/22 Appointment Negro Huerta APRN, [facility] Showing future appointments within next 90 days and meeting all other requirements DULoxetine (CYMBALTA) [address] Particles [Pharmacy Med Name: DULOXETINE HYDROCHLORIDE 20MG CAPSULE DR PART] 60 Capsule Sig: TAKE 2 CAPSULES BY MOUTH NIGHTLY. SNRI (6 Month Refill Only) Protocol Failed - 08/20/2022 11:47 AM Failed - Patient has established therapy with Serotonin-Norepinephrine Reuptake Inhibitors for at least 6 months Passed - No test in the past 12 months or most recent test was negative Passed - No active on record Passed - Visit with relevant provider in past 6 months or upcoming 90 days Recent Visits Date Type Provider Dept 06/29/22 Office Visit Leti Byrnes APRN, [facility] [place] 05/31/22 Office Visit Negro Huerta APRN, CNP [facility] 02/26/22 Office Visit Negro Huerta APRN, [facility] [place] Showing recent visits within past 182 days and meeting all other requirements Future Appointments Date Type Provider Dept 09/28/22 Appointment Negro Huerta APRN, HOM[facility] Showing future appointments within next 90 days and meeting all other requirements Passed - Has an encounter in the past 6 months with a depression or anxiety visit diagnosis documented in this encounter Plan of Treatment Upcoming Encounters Date Type Department Care Team (Late st Contact Info) Description 03/23/2025 1:30 PM BARTENDER HELPER Office Visit [facility] - Family Medicine - [place] [address] [place] [phone] Negro Huerta APRN, SUPERVISOR WRAPPING ROOM #[address] [address] 04/16/2025 1:00 PM BARTENDER HELPER Office Visit [facility] - Cardiology - [place] [address]2 [place] [address] Aga Garay APRN, HOMAR [address] [address] 07/20/2025 1:00 PM CDT Office Visit [facility] UROLOGY #2 [place] [phone] Amado Early APRN, SUPERVISOR WRAPPING ROOM #2 [place] [address] documented as of this encounter Visit Diagnoses Diagnosis Bipolar disorder with depression (HCC) Bipolar I disorder, most recent episode (or current) depressed, unspecified documented in this encounter Additional Health Concerns Assessment Noted Time PHQ-9 Depression Total Score: 0 07/07/19 10:00 AM BARTENDER HELPER documented as of this encounter Care Teams Resort Desk Clerk Relationship Specialty Start Date End Date Negro Huerta, PRODUCTION ARTIST, SUPERVISOR WRAPPING ROOM #2 [facility] [address] [place] [address] PCP - General Advanced Practice Nurse 07/06/21 Denae Gonzalez DPM #2 [facility] [address] [place] [address] Consulting Physician Podiatry 04/24/22 Cherie Vizcarra LSW [place] General Production Worker Skein Spooler 06/03/23 06/12/23 Amado Early PRODUCTION ARTIST, SUPERVISOR WRAPPING ROOM #2 [place] [address] Nurse Practitioner Advanced Practice Nurse 09/02/23 Nohelia Haskins MD #2 [facility] [address] [place] [address] Consulting Physician Urology 10/11/23 Aga Garay APRN, SUPERVISOR WRAPPING ROOM 2 [facility] [address] [place] [address] Nurse Practitioner Cardiology 12/14/24 Leandro Jacques MD #2 [facility] [address] [place] [address] Consulting Physician Colon and Rectal Surgery 12/15/24 documented as of this encounter
--- OUTSIDE RECORDS SUMMARY | 2024-12-24 17:09 | XMS_ITS | Encounter Summary ---
Author Organization [facility] Address [address] [place] [address] Phone Care Team Providers Care Fruit Harvester Name Role Phone Negro Huerta APRN, CANVAS PRODUCTS SALES REPRESENTATIVE Primary Care Pr ovider Denae Gonzalez DPM Unavailable [phone] Cherie Vizcarra SUPERVISOR METAL PLACING Unavailable Unavailab Amado Singer PLUMBING SERVICE TECHNICIAN, CANVAS PRODUCTS SALES REPRESENTATIVE Unavailable [phone] Nohelia Haskins MD Unavailable [phone] Aga Garay APRN, CANVAS PRODUCTS SALES REPRESENTATIVE Unavailable + [phone] Leandro Jacques MD Unavailable Reason for Visit * Reason Comments Medication Refill Encounter Details Date Type Department Care Team (Late st Contact Info) Description 07/24/2022 Refill [facility] - [facility] Medicine - [place] [address]2 [place] [address] Negro Huerta APRN, CANVAS PRODUCTS SALES REPRESENTATIVE #[address] [address] Medication Refill Social History Tobacco Use Types [...] PM CDT Legal Sex Female 2:07 PM FIELD HOCKEY COACH Gender Identity Female 11/15/2023 3:17 PM CDT Sexual Orientation Straight 11/15/2023 3: 17 PM CDT COVID-19 Exposure Response Date Recorded In the last 10 days, have yo u been in contact with someone who was confirmed or suspected to have Coronavirus/COVID-19? No / Unsure 06/29/2022 11:55 AM FIELD HOCKEY COACH documented as of this encounter Miscellaneous Notes * Telephone Encounter - Ira Thompson RN - 07/24/2022 8:17 AM CDT PDMP 07/09/22 #90 30 days documented in this encounter Plan of Treatment Upcoming Encounters Date Type Department Care Team (Late st Contact Info) Description 03/23/2025 1:30 PM FIELD HOCKEY COACH Office Visit [facility] - Family Medicine - [place] [address]2 [place] [phone] Negro Huerta, PLUMBING SERVICE TECHNICIAN, CANVAS PRODUCTS SALES REPRESENTATIVE #2 [facility] [address] [place] [address] 04/16/2025 1:00 PM FIELD HOCKEY COACH Office Visit [facility] Group - Cardiology - [place] [address]2 [place] [address] Aga Garay APRN, CANVAS PRODUCTS SALES REPRESENTATIVE 2 [facility] [address] [place] [address] 07/20/2025 1:00 PM CDT Office Visit [facility] UROLOGY #2 [place] [address] Amado Early PLUMBING SERVICE TECHNICIAN, CANVAS PRODUCTS SALES REPRESENTATIVE #2 [place] [address] documented as of this encounter Visit Diagnoses Diagnosis Anxiety Anxiety state, unspecified documented in this encounter Additional Health Concerns Assessment Noted Time PHQ-9 Depression Total Score: 0 07/07/19 10:00 AM FIELD HOCKEY COACH documented as of this encounter Care Teams Fruit Harvester Relationship Specialty Start Date End Date Negro Huerta, PLUMBING SERVICE TECHNICIAN, CANVAS PRODUCTS SALES REPRESENTATIVE #2 [facility] [address] [place] [address] PCP - General Advanced Practice Nurse 07/06/21 Denae Gonzalez DPM #2 [facility] [address] [place] [address] Consulting Physician Podiatry 04/24/22 Cherie Vizcarra, SUPERVISOR METAL PLACING [place] Rn Delivery Wrapper Hand 06/03/23 06/12/23 Amado Early PLUMBING SERVICE TECHNICIAN, CANVAS PRODUCTS SALES REPRESENTATIVE #2 [place] [address] Nurse Practitioner Advanced Practice Nurse 09/02/23 Nohelia Haskins MD #2 [facility] [address] [place] [address] Consulting Physician Urology 10/11/23 Aga Garay PLUMBING SERVICE TECHNICIAN, CANVAS PRODUCTS SALES REPRESENTATIVE 2 [facility] [address] [place] [address] Nurse Practitioner Cardiology 12/14/24 Leandro Jacques MD #2 [facility] [address] [place] [address] Consulting Physician Colon and Rectal Surgery 12/15/24 documented as of this encounter
--- OUTSIDE RECORDS SUMMARY | 2024-12-24 17:09 | XMS_ITS | Encounter Summary ---
Author Organization [facility] Address [address] [place] [address] Phone Care Team Providers Care Invisible Braces Orthodontist Name Role Phone Negro Huerta APRN, FICTION WRITER Primary Care Pr ovider Denae Gonzalez DPM Unavailable [phone] Amado Early HEAD START TEACHER, FICTION WRITER Unavailable Nohelia Haskins MD Unavailable [phone] Aga Garay APRN, FICTION WRITER Unavailable [phone] Leandro Jacques MD Unavailable Reason for Visit * Reason Comments Medication Refill Encounter Details Date Type Department Care Team (Late st Contact Info) Description 05/19/2024 Refill [facility] - Family Medicine - [place] [address]2 [place] [address] Negro Huerta APRN, FICTION WRITER #[address] [address] Medication Refill Social History Tobacco Use Types Packs/Day Years Used Date Smoking Tobacco: Every Day Cigarettes 0.5 38.2 Started: 01/15/1984; Last attempted to quit: 04/13/2022 Smokeless Tobacco: Never Comments:I started smoking a t 15 now I'm down to about a half a pack a day Alcohol Use Standard Drinks/Week Comments Not Currently 0 (1 standard drink = 0.6 oz pure alcohol) I might drink one alcoholic beverage every 4 or 5 years [facility] Utilities Answer Date Recorded In the past 12 months has [employer], gas, oil, or water [employer] threatened to shut off services in your [...] often do you attend chur ch or sabianist services? Never 06/12/2023 Do you belong to any clubs o r organizations such as spiritism groups, unions, fraternal or athletic groups, or [...] Total Score - Questions 1-9 9 11/2023 [facility] [place] of Occupat ional Health - Occupational Stress [...] place to sleep or slept in a residential (including now)? No 06/12/2023 Education Answer Date [...] PM CDT Legal Sex Female 2:07 PM RECRUITING ADMINISTRATOR Gender Identity Female 11/15/2023 3:17 PM CDT Sexual Orientation Straight 11/15/2023 3: 17 PM CDT documented as of this encounter Miscellaneous Notes * Telephone Encounter - Ira Thompson RN - 05/19/2024 1:19 PM CST Year supply sent to medicine [employer] 04/17/24 UITING ADMINISTRATOR documented in this encounter Plan of Treatment Upcoming Encounters Date Type Department Care Team (Late st Contact Info) Description 03/23/2025 1:30 PM RECRUITING ADMINISTRATOR Office Visit [facility] Medical [facility] - Family Medicine - [place] #2 [facility] [place] [address] Negro Huerta, HEAD START TEACHER, FICTION WRITER #2 [facility] [address] [place] [address] 04/16/2025 1:00 PM RECRUITING ADMINISTRATOR Office Visit [facility] - Cardiology - [place] [address]2 [place] [address] Aga Garay APRN, FICTION WRITER 2 [facility] [address] [place] [address] 07/20/2025 1:00 PM CDT Office Visit [facility] UROLOGY #2 [place] [address] Amado Early APRN, FICTION WRITER #2 [place] [address] documented as of this encounter Visit Diagnoses Not on filedocumented in this encounter Additional Health Concerns Assessment Noted Time PHQ-9 Depression Total Score: 9 06/12/19 24 3:31 PM RECRUITING ADMINISTRATOR documented as of this encounter Care Teams Invisible Braces Orthodontist Relationship Specialty Start Date End Date Negro Huerta APRN, FICTION WRITER #2 [facility] [address] [place] [address] PCP - General Advanced Practice Nurse 07/06/21 Denae Gonzalez DPM #2 [facility] [address] [place] [address] Consulting Physician Podiatry 04/24/22 Amado Early APRN, FICTION WRITER #2 [place] [address] Nurse Practitioner Advanced Practice Nurse 09/02/23 Nohelia Haskins MD #2 [facility] [address] [place] [address] Consulting Physician Urology 10/11/23 Aga Garay APRN, FICTION WRITER 2 [facility] [address] [place] [address] Nurse Practitioner Cardiology 12/14/24 Leandro Jacques MD #2 [facility] [address] [place] [address] Consulting Physician Colon and Rectal Surgery 12/15/24 documented as of this encounter
--- OUTSIDE RECORDS SUMMARY | 2024-12-24 17:10 | XMS_ITS | Encounter Summary ---
Author Organization [facility] Address [address] [place] [address] Phone Care Team Providers Care Vehicle Assembly Inspector Name Role Phone Negro Huerta APRN, ELECTRONICS TECHNOLOGY INSTRUCTOR Primary Care Pr ovider Denae Gonzalez DPM Unavailable [phone] Amado Early STRAIGHTENING MACHINE FEEDER, ELECTRONICS TECHNOLOGY INSTRUCTOR Unavailable Nohelia Haskins MD Unavailable [phone] Aga Garay APRN, ELECTRONICS TECHNOLOGY INSTRUCTOR Unavailable + [phone] Leandro Jacques MD Unavailable Reason for Visit * Reason Comments Medication Refill Encounter Details Date Type Department Care Team (Late st Contact Info) Description 05/18/2024 Refill [facility] - Family Medicine - [place] #2 [place] [address] Negro Huerta APRN, ELECTRONICS TECHNOLOGY INSTRUCTOR #[address] [address] Medication Refill Social History Tobacco Use Types [...] alcoholic beverage every 4 or 5 years [facility] Utilities Answer Date Recorded In the past 12 months has [employer], gas, oil, or water [employer] threatened to shut off services in your [...] any clubs o r organizations such as holiness groups, unions, fraternal or athletic groups, or [...] Total Score - Questions 1-9 9 11/2023 [facility] [place] of Occupat ional Health - Occupational Stress [...] place to sleep or slept in a long term (including now)? No 06/12/2023 Education Answer Date [...] PM CDT Legal Sex Female 2:07 PM FILTER PRESS TENDER HEAD Gender Identity Female 11/15/2023 3:17 PM CDT Sexual Orientation Straight 11/15/2023 3: 17 PM CDT documented as of this encounter Plan of Treatment Upcoming Encounters Date Type Department Care Team (Late st Contact Info) Description 03/23/2025 1:30 PM FILTER PRESS TENDER HEAD Office Visit [facility] Medical Group - Family [facility] #2 [place] [address] Negro Huerta APRN, ELECTRONICS TECHNOLOGY INSTRUCTOR #[address] [address] 04/16/2025 1:00 PM FILTER PRESS TENDER HEAD Office Visit [facility] - Cardiology [facility] #2 [place] [address] Aga Garay APRN, ELECTRONICS TECHNOLOGY INSTRUCTOR [address] [address] 07/20/2025 1:00 PM CDT Office Visit [facility] PHYSICIAN GROUP UROLOGY #2 [place] [address] Amado Early APRN, ELECTRONICS TECHNOLOGY INSTRUCTOR #2 [place] [address] documented as of this encounter Visit Diagnoses Diagnosis Bipolar disorder with depression (HCC) Bipolar I disorder, most recent episode (or current) depressed, unspecified documented in this encounter Additional Health Concerns Assessment Noted Time PHQ-9 Depression Total Score: 9 06/12/19 24 3:31 PM FILTER PRESS TENDER HEAD documented as of this encounter Care Teams Vehicle Assembly Inspector Relationship Specialty Start Date End Date Negro Huerta APRN, ELECTRONICS TECHNOLOGY INSTRUCTOR #[address] [address] PCP - General Advanced Practice Nurse 07/06/21 Denae Gonzalez DPM #[address] [address] Consulting Physician Podiatry 04/24/22 Amado Early APRN, ELECTRONICS TECHNOLOGY INSTRUCTOR #2 [place] [address] Nurse Practitioner Advanced Practice Nurse 09/02/23 Nohelia Haskins MD #2 [facility] [address] [place] [address] Consulting Physician Urology 10/11/23 Aga Garay APRN, ELECTRONICS TECHNOLOGY INSTRUCTOR 2 [facility] [address] [place] [address] Nurse Practitioner Cardiology 12/14/24 Leandro Jacques MD #2 [facility] [address] [place] [address] Consulting Physician Colon and Rectal Surgery 12/15/24 documented as of this encounter
--- OUTSIDE RECORDS SUMMARY | 2024-12-24 17:10 | XMS_ITS | Encounter Summary ---
Author Organization [facility] Address [address] [place] [address] Phone Care Team Providers Care Nut Packer Name Role Phone Negro Huerta APRN, DIRECTOR BUSINESS Primary Care Pr ovider Denae Gonzalez DPM Unavailable [phone] Amado Early RETIREMENT ASSISTANT, DIRECTOR BUSINESS Unavailable Nohelia Haskins MD Unavailable [phone] Aga Garay APRN, DIRECTOR BUSINESS Unavailable + [phone] Leandro Jacques MD Unavailable Reason for Visit * Reason Comments Medication Refill Encounter Details Date Type Department Care Team (Late st Contact Info) Description 09/09/2024 Refill [facility] - Family Medicine - [place] #2 [place] [address] Negro Huerta APRN, DIRECTOR BUSINESS #[address] [address] Medication Refill Social History Tobacco Use Types [...] alcoholic beverage every 4 or 5 years [facility] Utilities Answer Date Recorded In the past 12 months has [employer], gas, oil, or water [employer] threatened to shut off services in your [...] often do you attend chur ch or islam services? More than 4 times per year [...] Total Score - Questions 1-9 9 11/2023 [facility] [place] of Occupat ional Health - Occupational Stress [...] place to sleep or slept in a [place] health care facility (including now)? No 06/12/2023 Housing Stability Vital Sign Answer Juan e Recorded In the last 12 months, was t here a time when you were not able to pay the mortgage or rent on time? No 07/15/2024 In the past 12 months, how m any times have you moved where you were living? 2 07/15/2024 At any time in the past 12 m [facility], were you homeless or living in a [place] health care facility (including now)? Yes 07/15/2024 Education Answer Date [...] PM CDT Legal Sex Female 2:07 PM REFERRAL MANAGEMENT LIAISON Gender Identity Female 11/15/2023 3:17 PM CDT Sexual Orientation Straight 11/15/2023 3: 17 PM CDT documented as of this encounter Miscellaneous Notes * Telephone Encounter - Ira Thompson RN - 09/09/2024 2:09 PM CDT Images from the original note were not included. Albuterol Sulfate Dispensed Days Supply Quantity Provider Pharmacy ALBUTEROL HFA 90 MCG INHALER 08/07/2024 25 8.5 g Negro Huerta APRN, HOM[id number] ... ALBUTEROL HFA 90 MCG INHALER 07/09/2024 25 8.5 g Negro Huerta APRN, HOMAR [id number] ... ALBUTEROL HFA 90 MCG INHALER 06/12/2024 25 8.5 g Negro Huerta APRN, HOMAR [id number] ... ALBUTEROL HFA 90 MCG INHALER 05/18/2024 25 8.5 g Negro Huerta APRN, HOMAR [id number] ... As needed medication - should be using Combivent daily - may need re-evaluated if using this much albuterol. documented in this encounter Plan of Treatment Upcoming Encounters Date Type Department Care Team (Late st Contact Info) Description 03/23/2025 1:30 PM REFERRAL MANAGEMENT LIAISON Office Visit [facility] - Family Medicine - [place] #2 [place] [address] Negro Huerta APRN, HOMAR #2 [facility] [address] [place] [address] 04/16/2025 1:00 PM REFERRAL MANAGEMENT LIAISON Office Visit [facility] Medical Group - Cardiology - [place] #2 [place] [phone] Aga Garay APRN, HOMAR 2 [facility] [address] [place] [address] 07/20/2025 1:00 PM CDT Office Visit [facility]IAN GROUP UROLOGY #2 [place] [address] Amado Early APRN, DIRECTOR BUSINESS #2 [place] [address] documented as of this encounter Visit Diagnoses Not on filedocumented in this encounter Additional Health Concerns Assessment Noted Time PHQ-9 Depression Total Score: 9 06/12/19 24 3:31 PM REFERRAL MANAGEMENT LIAISON documented as of this encounter Care Teams Nut Packer Relationship Specialty Start Date End Date Negro Huerta APRN, DIRECTOR BUSINESS #2 [facility] [address] [place] [address] PCP - General Advanced Practice Nurse 07/06/21 Denae Gonzalez DPM #2 [facility] [address] [place] [address] Consulting Physician Podiatry 04/24/22 Amado Early APRN, DIRECTOR BUSINESS #2 [place] [address] Nurse Practitioner Advanced Practice Nurse 09/02/23 Nohelia Haskins MD #2 [facility] [address] [place] [address] Consulting Physician Urology 10/11/23 Aga Garay APRN, DIRECTOR BUSINESS 2 [facility] [address] [place] [address] Nurse Practitioner Cardiology 12/14/24 Leandro Jacques MD #[address] [address] Consulting Physician Colon and Rectal Surgery 12/15/24 documented as of this encounter
--- OUTSIDE RECORDS SUMMARY | 2024-12-24 17:10 | XMS_ITS | Encounter Summary ---
Author Organization [facility] Address [address] [place] [address] Phone Care Team Providers Care Major Assembler Name Role Phone Negro Huerta APRN, STATE EPIDEMIOLOGIST Primary Care Pr ovider Denae Gonzalez DPM Unavailable [phone] Amado Early HOTEL MANAGER, STATE EPIDEMIOLOGIST Unavailable Nohelia Haskins MD Unavailable [phone] Aga Garay APRN, STATE EPIDEMIOLOGIST Unavailable + [phone] Leandro Jacques MD Unavailable Reason for Visit * Reason Comments Medication Refill Encounter Details Date Type Department Care Team (Late st Contact Info) Description 09/12/2024 Refill [facility] - [facility] - [place] [address] [place] [address] Negro Huerta APRN, STATE EPIDEMIOLOGIST #[address] [address] Medication Refill Social History Tobacco Use Types [...] alcoholic beverage every 4 or 5 years [facility] Utilities Answer Date Recorded In the past 12 months has [employer], gas, oil, or water [employer] threatened to shut off services in your [...] often do you attend chur ch or scientologist services? More than 4 times per year 07/15/2024 Do you belong to any clubs o r organizations such as latter-day groups, unions, fraternal or athletic groups, or [...] Questions 1-9 9 11/2023 [facility] [place] of Occupat ional Health - Occupational Stress [...] place to sleep or slept in a correction (including now)? No 06/12/2023 Housing Stability Vital Sign Answer Juan e Recorded In the last 12 months, was t here a time when you were not able to pay the mortgage or rent on time? No 07/15/2024 In the past 12 months, how m any times have you moved where you were living? 2 07/15/2024 At any time in the past 12 m [facility], were you homeless or living in a correction (including now)? Yes 07/15/2024 Education Answer Date [...] PM CDT Legal Sex Female 2:07 PM LEAD INFRASTRUCTURE ARCHITECT Gender Identity Female 11/15/2023 3:17 PM CDT Sexual Orientation Straight 11/15/2023 3: 17 PM CDT documented as of this encounter Miscellaneous Notes * Telephone Encounter - Ira Thompson RN - 09/14/2024 11:20 AM CDT Images from the original note [...] Huerta APRN, HOMAR [id number] ... PRN medication - 1 inhaler each month is excessive use. Should be using Combivent daily - this also has albuterol in it. If she needs thi much albuterol - she needs an OV to discuss with provider. documented in this encounter Plan of Treatment Upcoming Encounters Date Type Department Care Team (Late st Contact Info) Description 03/23/2025 1:30 PM LEAD INFRASTRUCTURE ARCHITECT Office Visit [facility] - [place] [address] [place] [address] Negro Huerta APRN, HOMAR #[address] [address] 04/16/2025 1:00 PM LEAD INFRASTRUCTURE ARCHITECT Office Visit [facility] - Cardiology - [place] [address] [place] [address] Aga Garay APRN, STATE EPIDEMIOLOGIST 2 [facility] [address] [place] [address] 07/20/2025 1:00 PM CDT Office Visit [facility] #[address] [place] [id number] Amado Early APRN, STATE EPIDEMIOLOGIST #2 [place] [address] documented as of this encounter Visit Diagnoses Not on filedocumented in this encounter Additional Health Concerns Assessment Noted Time PHQ-9 Depression Total Score: 9 06/12/19 24 3:31 PM LEAD INFRASTRUCTURE ARCHITECT documented as of this encounter Care Teams Major Assembler Relationship Specialty Start Date End Date Negro Huerta APRN, STATE EPIDEMIOLOGIST #2 [facility] [address] [place] [address] PCP - General Advanced Practice Nurse 07/06/21 Denae Gonzalez DPM #2 [facility] [address] [place] [address] Consulting Physician Podiatry 04/24/22 Amado Early APRN, STATE EPIDEMIOLOGIST #2 [place] [address] Nurse Practitioner Advanced Practice Nurse 09/02/23 Nohelia Haskins MD #2 [facility] [address] [place] [address] Consulting Physician Urology 10/11/23 Aga Garay APRN, STATE EPIDEMIOLOGIST 2 [facility] [address] [place] [address] Nurse Practitioner Cardiology 12/14/24 Leandro Jacques MD #2 [place] [address] Consulting Physician Colon and Rectal Surgery 12/15/24 documented as of this encounter
--- OUTSIDE RECORDS SUMMARY | 2024-12-24 17:10 | XMS_ITS | Encounter Summary ---
Author Organization [facility] Address [address] [place] [address] Phone Care Team Providers Care Form Setter Helper Name Role Phone Negro Huerta APRN, PRINCIPAL QUALITY ENGINEER Primary Care Pr ovider Denae Gonzalez DPM Unavailable [phone] Amado Early SQL SERVER ARCHITECT, PRINCIPAL QUALITY ENGINEER Unavailable [phone] Nohelia Haskins MD Unavailable [phone] Aga Garay APRN, PRINCIPAL QUALITY ENGINEER Unavailable + [phone] Leandro Jacques MD Unavailable Reason for Visit * Reason Comments Medication Refill Encounter Details Date Type Department Care Team (Late st Contact Info) Description 10/06/2024 Refill [facility] Medicine - [place] [address] [place] [address] Negro Huerta APRN, PRINCIPAL QUALITY ENGINEER #[address] [address] Medication Refill Social History Tobacco Use Types [...] alcoholic beverage every 4 or 5 years [facility] Utilities Answer Date Recorded In the past 12 months has [employer], gas, oil, or water [employer] threatened to shut off services in your [...] you attend chur ch or muslim services? More than 4 times per year 07/15/2024 Do you belong to any clubs o r organizations such as roman catholic groups, unions, fraternal or athletic groups, or [...] Total Score - Questions 1-9 9 11/2023 [facility] [place] of Occupat ional Health - Occupational Stress [...] a senior care (including now)? No 06/12/2023 Housing Stability Vital Sign Answer Juan e Recorded In the last 12 months, was t here a time when you were not able to pay the mortgage or rent on time? No 07/15/2024 In the past 12 months, how m any times have you moved where you were living? 2 07/15/2024 At any time in the past 12 m [facility], were you homeless or living in a senior care (including now)? Yes 07/15/2024 Education Answer Date [...] PM CDT Legal Sex Female 2:07 PM PAPER COATING MACHINE OPERATOR Gender Identity Female 11/15/2023 3:17 PM CDT Sexual Orientation Straight 11/15/2023 3: 17 PM CDT documented as of this encounter Miscellaneous Notes * Telephone Encounter - Ira Thompson RN - 10/06/2024 3:13 PM CDT Refills on file at [facility]. Have refills transferrred documented in this encounter Plan of Treatment Upcoming Encounters Date Type Department Care Team (Late st Contact Info) Description 03/23/2025 1:30 PM PAPER COATING MACHINE OPERATOR Office Visit [facility] - Family Medicine - [place] [address] [place] [address] Negro Huerta APRN, PRINCIPAL QUALITY ENGINEER #2 [facility] [address] [place] [address] 04/16/2025 1:00 PM PAPER COATING MACHINE OPERATOR Office Visit [facility] - Cardiology - [place] [address] [place] [address] Aga Garay APRN, PRINCIPAL QUALITY ENGINEER 2 [facility] [address] [place] [address] 07/20/2025 1:00 PM CDT Office Visit [facility] PHYSICIAN [facility] UROLOGY #[address] [place] [address] Amado Early APRN, PRINCIPAL QUALITY ENGINEER #[address] [place] [address] documented as of this encounter Visit Diagnoses Diagnosis Anxiety Anxiety state, unspecified documented in this encounter Additional Health Concerns Assessment Noted Time PHQ-9 Depression Total Score: 9 06/12/19 24 3:31 PM PAPER COATING MACHINE OPERATOR documented as of this encounter Care Teams Form Setter Helper Relationship Specialty Start Date End Date Negro Huerta APRN, PRINCIPAL QUALITY ENGINEER #2 [facility] [address] [place] [address] PCP - General Advanced Practice Nurse 07/06/21 Denae Gonzalez DPM #2 [facility] [address] [place] [address] Consulting Physician Podiatry 04/24/22 Amado Early, SQL SERVER ARCHITECT, PRINCIPAL QUALITY ENGINEER #[address] [place] [address] Nurse Practitioner Advanced Practice Nurse 09/02/23 Nohelia Haskins MD #2 [facility] [address] [place] [address] Consulting Physician Urology 10/11/23 Aga Garay, SQL SERVER ARCHITECT, PRINCIPAL QUALITY ENGINEER 2 [facility] [address] [place] [address] Nurse Practitioner Cardiology 12/14/24 Leandro Jacques MD #[address] [address] Consulting Physician Colon and Rectal Surgery 12/15/24 documented as of this encounter
[2024-12-24 17:16] VITALS: BP 158/94; PULSE 95; RESP 18; O2SAT 99
--- NOTE | 2024-12-24 17:33 | ED.FEMALEGU ---
HPI - Female Genitourinary General Chief complaint: Urogenital-Female Stated complaint: bilateral flank pain, pain with urination Time Seen by Provider: 12/24/24 17:15 History of Present Illness HPI Narrative: This is a 54-year-old female with history of non-small cell lung cancer status post wedge resection, PTSD who presents to the ED for dysuria and lower abdominal pain. Patient states that a few weeks ago, she was diagnosed with a UTI and took antibiotic that did improve her symptoms. She states that a couple days ago, she began having symptoms again and was concerned she may have another UTI. Denies fevers, chills. She has had some nausea but no vomiting. She has not taken anything for this. Related Data Home Medications ?Medication ?Instructions ?Recorded ?Confirmed ?Last Taken ?Type Dialyvite Vitamin D 50,000 unit PO WEEKLY 04/06/20 06/26/24 Unknown History albuterol 90 mcg/actuation aerosol 90 mcg inhalation PRN 04/06/20 06/26/24 04/06/20 12:00 History inhaler alprazolam 1 mg tablet (Xanax) 1 mg PO QID depression 04/06/20 06/26/24 04/06/20 12:00 History amitriptyline 75 mg tablet 75 mg PO QHS 05/15/22 06/26/24 Unknown History aspirin 81 mg tablet,delayed 81 mg PO DAILY 05/15/22 06/26/24 Unknown History release (Adult Low Dose Aspirin) duloxetine 40 mg capsule,delayed 40 mg PO DAILY 05/15/22 06/26/24 Unknown History release lisinopril 5 mg tablet 5 mg PO DAILY 05/15/22 06/26/24 Unknown History clindamycin phosphate 1 % topical topical 06/26/24 06/26/24 Unknown History gel ipratropium 20 mcg-albuterol 100 inhalation 06/26/24 06/26/24 Unknown History mcg/actuation mist for inhalation (Combivent Respimat) quetiapine 50 mg tablet mg PO 06/26/24 06/26/24 Unknown History Allergies Allergy/AdvReac Type Severity Reaction Status Date / Time neomycin Allergy Unknown Hives Verified 12/24/24 17:19 Penicillins Allergy Unknown Itching Verified 12/24/24 17:19 vancomycin Allergy Unknown Hives Verified 12/24/24 17:19 Review of Systems Review of Systems: Gen.: Denies fevers or chills Eyes: Denies eye pain or visual change ENT: Denies congestion Respiratory: Denies shortness of breath or cough CV: Denies chest pain or palpitations GI: Denies abdominal pain nausea, emesis or diarrhea as per HPI Musculoskeletal: Denies back pain or muscle pain Neuro: Denies numbness, tingling, weakness or focal weakness Skin: Denies rash Except as documented, all other systems reviewed and negative [facility] Past Medical History Medical History Basal cell carcinoma Screening mammogram, encounter for Encounter for removal of skin lesion (01/13/21) skin cancer removed from face Hypertension High cholesterol Herniated disc Bipolar affect, depressed PTSD (post-traumatic stress disorder) Skin cancer HPV in female Abnormal Pap smear of cervix 2008: LGSIL +HPV ; 02/02/2019 Ascus -hpv Surgical History Surgical History History of lung surgery (~03/2024) fissure removal History of removal of skin mole basal cell carcinoma removal 03/2024 H/O neck surgery (~12/2022) C7 T1 History of neck surgery (01/19/16) C3-C4 History of colposcopy with cervical biopsy (04/21/08) History of endometrial ablation (11/28/06) History of 07/19/05 primary c/s w/tubal History of tubal ligation (07/19/05) History of dilation and curettage 03/04/02 hscope d&c--incomplete 02/12/06 hscope d&c--menometrorrhagia Family History Family History Mother Diabetes mellitus Acute myocardial infarction Breast cancer Malignant tumor of ovary Grandparent Diabetes mellitus maternal grandmother Acute myocardial infarction maternal grandmother Breast cancer maternal grandmother Malignant tumor of ovary maternal grandmother Other Breast cancer maternal aunt Social History Social History Smoking packs per day: 1 Smoking cigarettes per day: 20.0 Years smoked: 30 Smoking pack-years: 30.00 Smoking status: Current every day smoker Tobacco type: cigarettes Alcohol intake: never Substance use: current Substance use type: marijuana Last use: daily Do You Feel Safe in your Home?: Yes Lack of Transportation: No Lack of Food: Never True Concerned About Future Housing: YES Difficulty Paying Gas/Electric Bills: No Difficulty Paying for Meds: No Currently Unemployed: No Education: Associate Degree Difficulty w/ Childcare or Family Care: No Living arrangements: other Additional living arrangements comments: / staying at [facility] Occupation/Education: unemployed Additional occupation/education comments: disability Gender identity (if verbalized by the patient): Female Sexual Orientation (if Verbalized by the Patient): Straight or Heterosexual Spiritual care concerns: No Exam Narrative: APPEARANCE: No acute distress, nontoxic, resting in bed EYES: EOMI HEENT: Normocephalic, atraumatic, OMM RESPIRATORY: No respiratory distress Clear to auscultation bilaterally with no rhonchi wheezing or rales. CARDIOVASCULAR: Regular rate and rhythm without murmurs rubs or gallops. ABDOMINAL: Soft, mild suprapubic tenderness to palpation. No CVA tenderness bilaterally. MUSCULOSKELETAl: Moves all extremities. No clubbing, cyanosis or edema. NEURO: Awake and alert. Following commands, speech normal, no focal deficits SKIN:: Warm, dry. No rashes lesions or abrasions PSYCHIATRIC: Normal affect/mood, Course Vital Signs Vital signs: Vital Signs Pulse Rate 95 12/24/24 17:16 Respiratory Rate 18 12/24/24 17:16 Blood Pressure 158/94 H 12/24/24 17:16 Pulse Oximetry 99 12/24/24 17:16 Oxygen Delivery Room Air 12/24/24 17:16 Pulse Rate 95 12/24/24 17:16 Respiratory Rate 18 12/24/24 17:16 Blood Pressure 158/94 H 12/24/24 17:16 Pulse Oximetry 99 12/24/24 17:16 Oxygen Delivery Room Air 12/24/24 17:16 MDM - Female Genitourinary MDM Narrative Medical decision making narrative: 54-year-old female who presented to the ED for dysuria with lower abdominal pain. On initial evaluation, patient was in no acute distress, nontoxic appearing, hemodynamically stable. She had mild suprapubic tenderness to palpation. Patient was given peridium with improvement of her pain. UA was consistent with UTI. Patient will be given prescription Keflex. She was advised follow-up with PCP next week for evaluation. Patient was agreeable this plan. Given strict return precautions. Differential Diagnosis Differential diagnosis: Likely urinary tract infection, cystitis and other (lumbar muscle strain) Medical Records Attestation: I reviewed the patient's medical records. Lab Data Attestation: I reviewed the patient's lab results. Labs: Lab Results 12/24/24 Range/Units 17:21 Urine Color Yellow (Yellow) Urine Appearance Clear (Clear) Urine pH 6.5 (5.0-9.0) Ur Specific [place] 1.003 (1.001-1.035) Urine Protein Negative (Negative) mg/dL Urine Glucose (UA) Negative (Negative) mg/dL Urine Ketones Negative (Negative) mg/dL Ur Blood (Man) Negative (Negative) Urine Nitrate Negative (Negative) Urine Bilirubin Negative (Negative) Urine Urobilinogen 0.2 (<2.0) mg/dL Add Ur Microanalysis Reviewed Leukocyte Esterase Rfl 1+ H (Negative) CLAIRE/UL Urine RBC 0-2 (0-2) /hpf Urine WBC 11-20 H (0-3) /hpf Ur Squamous Epith Cells Occasional (Few) /hpf Urine Bacteria 2+ H /hpf Urine Casts 0-2 Discharge Plan Discharge Clinical Impression: Cystitis Patient Disposition: Home Condition: Stable Instructions: Antibiotic Form, Urinary Tract Infection in Women (ED) Additional Instructions: Urinalysis revealed evidence of a UTI. You will be given prescriptions for Keflex and Pyridium, take these as prescribed. Follow-up with the PCP in the next week for re-evaluation. Return to the ED for any new or worsening symptoms. Patient Language: Czech Prescriptions: New cephalexin 500 mg capsule 500 mg PO Q12H 7 Days Qty: 14 0RF phenazopyridine [Pyridium] 200 mg tablet 200 mg PO TID PRN (Reason: pain) Qty: 6 0RF No Action quetiapine 50 mg tablet PO clindamycin phosphate 1 % gel topical Combivent Respimat 20-100 mcg/actuation mist inhalation aspirin [Adult Low Dose Aspirin] 81 mg tablet,delayed release (DR/EC) 81 mg PO DAILY lisinopril 5 mg tablet 5 mg PO DAILY duloxetine 40 mg capsule,delayed release(DR/EC) 40 mg PO DAILY amitriptyline 75 mg tablet 75 mg PO QHS alprazolam [Xanax] 1 mg Tablet 1 mg PO QID MDD 4 albuterol 90 mcg/actuation Aerosol 90 mcg INHALATION PRN Dialyvite Vitamin D 50,000 units tablet 50,000 unit PO WEEKLY Follow-up/Referrals: Brian,Zafar Fallon MD [Primary Care Provider]
[2024-12-24] MEDS: ONDANSETRON HCL ODT 4 MG TABLET PO (17:57)
[2024-12-24] MEDS: PHENAZOPYRIDINE HCL 100 MG TABLET 200 MG PO (17:58)
[2024-12-24 18:43] LABS: Add Urine Microscopic? YES; Appearance Urine Clear (Clear); Glucose Urine UA Negative (Negative); Leukocyte Esterase Ur 1+ LEU/UL (Negative); Need Manual Microscopic Reviewed; Nitrate Urine Negative (Negative); Non Pathogenic Casts 0-2; Specific Grav Ur 1.003 (1.001-1.035)
== END 2024-12-24 19:02 | disposition home or self-care (01) ==
PROVIDERS: Emergency Provider Student in an Organized Health Care Education/Training Program; PCP Family Medicine
DX: N30.90 Cystitis, unspecified without hematuria (principal); E78.00 Pure hypercholesterolemia, unspecified; I10 Essential (primary) hypertension; F43.10 Post-traumatic stress disorder, unspecified; F31.9 Bipolar disorder, unspecified; F17.210 Nicotine dependence, cigarettes, uncomplicated; Z85.828 Personal history of other malignant neoplasm of skin; Z85.118 Personal history of other malignant neoplasm of bronchus and lung; Z79.82 Long term (current) use of aspirin; Z79.899 Other long term (current) drug therapy
CPT/HCPCS: 81001; 87086; 99283; A9270